=== PATIENT | female | born 1945 | race Caucasian/White ===

== ENCOUNTER 2021-04-21 09:13 | Emergency (ER) | payer OTHER ==
--- OUTSIDE RECORDS SUMMARY | 2021-04-21 09:18 | XMS REPORT | Continuity of Care Document ---
:1945 Author Organization [facility] t Address [address] [place] [address] Care Team Providers Name Role Phone Justino Primary Care Physician Marilou BENJAMIN Attending Clinician Unavailable Venkat ROSADO Attending Clinician Samir SMITH Attending Clinician Marilou Benjamin MD Attending Clinician SAMIR Attending Clinician Unavailable Doctor Unassigned, Name Attending Clinician Unavailable HERNANDEZ Attending Clinician Unavailable Miguel A JULIENR Attending Clinician Unavailable LILIAN HERRING Attending Clinician Unavailable MIGUEL A Attending Clinician Unavailable LITTLE Attending Clinician Unavailable Payers Payer Name Policy Type Policy Number Effective Date Expiration Date S [facility] MEDICARE PART A \T\ [id number] 2011 B 00:00:00 COMMERCIAL [id number] 2012 NON-CONTRACT 00:00:00 GENERIC Problems Condition Condition Condition Status Onset Resolution Last Treating Co mments Source Name Details Category Date Date Treatment Clinician Date Parkinson' Parkinson' Disease Active 2020-03 U nivers s disease s disease 2-15 ity of 00:00: [address] Repeated Repeated Disease Active 2020-03 Unive rs falls falls 2-15 ity of 00:00: [address] 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 00:00: [place] neoplasia neoplasia 00 [facility] III (RANJAN III (RANJAN Branch III) III) Morbid Morbid Disease Active Univers obesity obesity 7-30 [place] of with body with body [place] mass index mass index 00 Me dical of of Branch 40.0-49.9 40.0-49.9 Osteoporos Osteoporos Disease Active U fransiscaers is is 5-22 ity of 00:00: [place] [facility] Multiple Multiple Disease Active Unive rs thyroid thyroid 1-26 ity of nodules nodules 00:00: [place] [facility] Rheumatoid Rheumatoid Disease Active U nivers arthritis arthritis 9- ity of 00:00: [place] [facility] Asthma, Asthma, Disease Active Univers mild mild 11-11 ity of intermitte [place]mitte [place], nt, 00 Medical uncomplica uncomplica Br anch quique quique IBS IBS Disease Active Univers (irritable (irritable 5-20 it y of bowel bowel 00:00: [place] syndrome) syndrome) 00 [facility] Essential Essential Disease Active Uni vers hypertensi hypertensi 5-05 it y of on on 00:00: [place] [facility] Allergic Allergic Disease Active Overview: Un joes rhinitis rhinitis 2-02 Formattin ity of 00:00: g of this [place] note Medical might be Branch different from the original. 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 follows with Dr. Taylor Type 2 Type 2 Disease Active [facility] diabetes diabetes ity of mellitus mellitus [place] with with Medical complicati complicati Br anch on, with on, with long-term long-term current current use of use of insulin insulin Allergies, Adverse Reactions, Alerts Allergy Allergy Status Severity Reaction(s) Onset Inactive Treating Comm ents Source Name Type Date Date Clinician Etanerce Propensi Active Rash 2018-03 Rash at Unive rs pt ty to 0-22 injection ity of adverse 00:00: site [place] reaction 00 Medical s Branch ETANERCE DRUG Active Rash 2018-03 Univers PT INGREDI 0-22 ity of 00:00: [place] 00 Medical Branch Latex Propensi Active Other - See Skin Uni vers ty to comments 9 irritatio ity o f adverse 00:00: n [place] reaction 00 Medical s Branch Oswaldo Propensi Active Other - See Sinus Uni vers Essence ty to comments 11-22 headache ity o f adverse 00:00: [place] reaction 00 Medical s Branch LATEX DRUG Active Other-Cmnt Univer s INGREDI 9 ity of 00:00: [place] 00 Medical Branch OSWALDO DRUG Active Other-Cmnt Univer s ESSENCE 9 ity of 00:00: [place] 00 Medical Branch Bee Propensi Active Swelling 2015-03 Univer s Sting / ty to 2-16 ity of Venom adverse 00:00: [place] reaction 00 Medical s Branch BEE DRUG Active Swelling 2015-03 Univers STING / INGREDI 2-16 ity of VENOM 00:00: [place] 00 Medical Branch Triamter Propensi Active Rash Univer s mik-Hydr ty to 2- ity of ochlorot adverse 00:00: [place] hiazid reaction 00 Medical s Branch Metformi Propensi Active Nausea Univer s n ty to and/or 2 ity of adverse Vomiting 00:00: [place] reaction 00 Medical s Branch Nsaids Propensi Active Other - See History Un jose (Non-[place] ty to comments 2 of GI ity of roidal adverse 00:00: bleed [place] Anti-Inf reaction 00 Medica l lammator s Branch y Drug) TRIAMTER DRUG Active Rash Univers MIK-HYDR 2- ity of [place] 00:00: [place] HIAZID 00 Medical Branch METFORMI DRUG Active N/V Univers N INGREDI 2- ity of 00:00: [place] 00 Medical Branch NSAIDS Drug Active Other-Cmnt Univer s (NON-MAICO Class 2-02 ity of ROIDAL 00:00: [place] ANTI-INF 00 Medical LAMMATOR Branch Y DRUG) Cyclospo Propensi Active Hives Univer s rine ty to 4-15 ity of adverse 00:00: [place] reaction 00 Medical s Branch Cephalex Propensi Active Nausea Univer s in ty to and/or 4-15 ity of adverse Vomiting 00:00: [place] reaction 00 Medical s Branch Penicill Propensi Active Hives Univer s ins ty to 4-15 ity of adverse 00:00: [place] reaction 00 Medical s Branch CYCLOSPO DRUG Active Hives Univers RINE INGREDI 4-15 ity of 00:00: [place] 00 Medical Branch CEPHALEX DRUG Active N/V Univers IN INGREDI 4-15 ity of 00:00: [place] 00 Medical Branch PENICILL Drug Active Hives Univers INS Class 4-15 ity of 00:00: [place] 00 Medical Branch Social History Social Habit Start Date Stop Date Quantity Comments Source History SDMI University o f Alcohol Frequency [place] [facility] ed[facility] History SDOH University o f Alcohol Std [place] [facility] Drinks Branch History [facility] University o f Alcohol Binge [place] [facility] al Branch Exposure to Not sure University of SARS-CoV-2 [place] [facility] (event) Branch Alcohol intake 2021-02-22 2021-02-22 0 /d University of 00:00:00 00:00:00 [facility] Alcohol Comment 2016-02-25 2016-02-25 extremely rare Unive rsity of 00:00:00 00:00:00 may have some [place] Medic al wine Branch History of 1993-03-14 Cigarette Smoker Universi ty of tobacco use 00:00:00 [facility] Sex [birth year] [facility] l[facility] of 00:00:00 00:00:00 Medicine Smoking Status Start Date Stop Date Source Unknown if ever smoked [facility] llege of Medicine Former smoker 2020-09-04 00:00:00 2020-09-04 00:00:00 Universi ty of [facility] Medications Ordered Filled Start Stop Current Ordering Indication Dosage Frequency Signature Comments Components Source Medication Medication Date Date Medication? Clinician (SIG) Name Name MUKESH 2020-03 Yes [id number] Inject 30 U nivers 70/30 U-100 2-23 units with it y of INSULIN 100 00:00: breakfast [place] unit/mL 00 30 units Medical (70-30) with Lunch Branch suspension 25 units with dinner OZEMPIC 2020-03 Yes [id number] .5mg inject 0.5 Univers 0.25 mg or 2-23 mg under ity o f 0.5 mg(2 00:00: the skin [place] mg/1.5 mL) 00 weekly. Medica l PnIj Branch [facility] 2020-03 Yes [id number] Inject 30 U nivers 70/30 U-100 2-23 units with it y of INSULIN 100 00:00: breakfast [place] unit/mL 00 30 units Medical (70-30) with Lunch Branch suspension 25 units with dinner OZEMPIC 2020-03 Yes [id number] .5mg inject 0.5 Univers 0.25 mg or 2-23 mg under ity o f 0.5 mg(2 00:00: the skin [place] mg/1.5 mL) 00 weekly. Medica l PnIj Branch [facility] 2020-03 Yes [id number] Inject 30 U nivers 70/30 U-100 2-23 units with it y of INSULIN 100 00:00: breakfast [place] unit/mL 00 30 units Medical (70-30) with Lunch Branch suspension 25 units with dinner OZEMPIC 2020-03 Yes [id number] .5mg inject 0.5 Univers 0.25 mg or 2-23 mg under ity o f 0.5 mg(2 00:00: the skin [place] mg/1.5 mL) 00 weekly. Medica l PnIj Branch propranolol 2020-03 Yes [id number] 120mg Take 1 Univers [place] 120 mg 1-20 capsule by ity of 24 hr 00:00: mouth [place] capsule 00 daily. Medical Take 80mg Branch daily. propranolol 2020-03 Yes [id number] 120mg Take 1 Univers [place] 120 mg 1-20 capsule by ity of 24 hr 00:00: mouth [place] capsule 00 daily. Medical Take 80mg Branch daily. propranolol 2020-03 Yes [id number] 120mg Take 1 Univers [place] 120 mg 1-20 capsule by ity of 24 hr 00:00: mouth [place] capsule 00 daily. Medical Take 80mg Branch daily. propranolol 2020-03 Yes [id number] 120mg Take 1 Univers [place] 120 mg 1-20 capsule by ity of 24 hr 00:00: mouth [place] capsule 00 daily. Medical Take 80mg Branch daily. propranolol 2020-03 Yes [id number] 120mg Take 1 Univers [place] 120 mg 1-20 capsule by ity of 24 hr 00:00: mouth [place] capsule 00 daily. Medical Take 80mg Branch daily. propranolol 2020-03 Yes [id number] 120mg Take 1 Univers [place] 120 mg 1-20 capsule by ity of 24 hr 00:00: mouth [place] capsule 00 daily. Medical Take 80mg Branch daily. traMADOL 2020-03 Yes 50mg Take 50 mg Uni vers (ULTRAM) 50 1-18 by mouth ity of mg tablet 14:46: every 8 [place] 59 (eight) Medical hours as Branch needed for Pain. traMADOL 2020-03 Yes 50mg Take 50 mg Uni vers (ULTRAM) 50 1-18 by mouth ity of mg tablet 14:46: every 8 [place] (eight) Medical hours as Branch needed for Pain. traMADOL 2020-03 Yes 50mg Take 50 mg Uni vers (ULTRAM) 50 1-18 by mouth ity of mg tablet 14:46: every 8 [place] 59 (eight) Medical hours as Branch needed for Pain. traMADOL 2020-03 Yes 50mg Take 50 mg Uni vers (ULTRAM) 50 1-18 by mouth ity of mg tablet 14:46: every 8 [place] 59 (eight) Medical hours as Branch needed for Pain. traMADOL 2020-03 Yes 50mg Take 50 mg Uni vers (ULTRAM) 50 1-18 by mouth ity of mg tablet 14:46: every 8 [place] 59 (eight) Medical hours as Branch needed for Pain. traMADOL 2020-03 Yes 50mg Take 50 mg Uni vers (ULTRAM) 50 1-18 by mouth ity of mg tablet 14:46: every 8 [place] 59 (eight) Medical hours as Branch needed for Pain. Cholecalcif 2020-03 Yes 1{capsu Take 1 Cap Univers willian, 1-18 le} by mouth ity of Vitamin D3, 14:46: [place]. [place] (VITAMIN 56 Medical D3) 1,000 Branch unit Cap Cholecalcif 2020-03 Yes 1{capsu Take 1 Cap Univers willian, 1-18 le} by mouth ity of Vitamin D3, 14:46: daily. [place] (VITAMIN 56 Medical D3) 1,000 Branch unit Cap Cholecalcif 2020-03 Yes 1{capsu Take 1 Cap Univers willian, 1-18 le} by mouth ity of Vitamin D3, 14:46: daily. [place] (VITAMIN 56 Medical D3) 1,000 Branch unit Cap Cholecalcif 2020-03 Yes 1{capsu Take 1 Cap Univers willian, 1-18 le} by mouth ity of Vitamin D3, 14:46: daily. [place] (VITAMIN 56 Medical D3) 1,000 Branch unit Cap Cholecalcif 2020-03 Yes 1{capsu Take 1 Cap Univers iwllian, 1-18 le} by mouth ity of Vitamin D3, 14:46: daily. [place] (VITAMIN 56 Medical D3) 1,000 Branch unit Cap Cholecalcif 2020-03 Yes 1{capsu Take 1 Cap Univers willian, 1-18 le} by mouth ity of Vitamin D3, 14:46: daily. [place] (VITAMIN 56 Medical D3) 1,000 Branch unit Cap omega-3 2020-03 Yes 1g Take 1 g Univer s fatty 1-18 by mouth ity of acids-vitam 14:46: daily. [place] in E (FISH 55 Medical OIL) 1,000 Branch mg capsule omega-3 2020-03 Yes 1g Take 1 g Univer s fatty 1-18 by mouth ity of acids-vitam 14:46: daily. [place] in E (FISH 55 Medical OIL) 1,000 Branch mg capsule omega-3 2020-03 Yes 1g Take 1 g Univer s fatty 1-18 by mouth ity of acids-vitam 14:46: daily. [place] in E (FISH 55 Medical OIL) 1,000 Branch mg capsule omega-3 2020-03 Yes 1g Take 1 g Univer s fatty 1-18 by mouth ity of acids-vitam 14:46: daily. [place] in E (FISH 55 Medical OIL) 1,000 Branch mg capsule omega-3 2020-03 Yes 1g Take 1 g Univer s fatty 1-18 by mouth ity of acids-vitam 14:46: daily. [place] in E (FISH 55 Medical OIL) 1,000 Branch mg capsule omega-3 2020-03 Yes 1g Take 1 g Univer s fatty 1-18 by mouth ity of acids-vitam 14:46: daily. [place] in E (FISH 55 Medical OIL) 1,000 Branch mg capsule predniSONE 2020-03 Yes 5mg Take 5 mg Un jose (DELTASONE) 1-18 by mouth ity of 5 mg tablet 14:46: as needed. [address] predniSONE 2020-03 Yes 5mg Take 5 mg Un jose (DELTASONE) 1-18 by mouth ity of 5 mg tablet 14:46: as needed. [address] predniSONE 2020-03 Yes 5mg Take 5 mg Un jose (DELTASONE) 1-18 by mouth ity of 5 mg tablet 14:46: as needed. [address] predniSONE 2020-03 Yes 5mg Take 5 mg Un jose (DELTASONE) 1-18 by mouth ity of 5 mg tablet 14:46: as needed. [address] predniSONE 2020-03 Yes 5mg Take 5 mg Un jose (DELTASONE) 1-18 by mouth ity of 5 mg tablet 14:46: as needed. [address] predniSONE 2020-03 Yes 5mg Take 5 mg Un jose (DELTASONE) 1-18 by mouth ity of 5 mg tablet 14:46: as needed. [address] VITAMIN B 2020-03 Yes 1{tbl} Take 1 Univ ers COMPLEX 1-18 tablet by ity of ORAL 14:46: mouth [place] 50 daily. [facility] VITAMIN B 2020-03 Yes 1{tbl} Take 1 Univ ers COMPLEX 1-18 tablet by ity of ORAL 14:46: mouth [place] 50 daily. [facility] VITAMIN B 2020-03 Yes 1{tbl} Take 1 Univ ers COMPLEX 1-18 tablet by ity of ORAL 14:46: mouth [place] 50 daily. [facility] VITAMIN B 2020-03 Yes 1{tbl} Take 1 Univ ers COMPLEX 1-18 tablet by ity of ORAL 14:46: mouth [place] 50 daily. [facility] VITAMIN B 2020-03 Yes 1{tbl} Take 1 Univ ers COMPLEX 1-18 tablet by ity of ORAL 14:46: mouth [place] 50 daily. [facility] VITAMIN B 2020-03 Yes 1{tbl} Take 1 Univ ers COMPLEX 1-18 tablet by ity of ORAL 14:46: mouth [place] 50 daily. [facility] METHOTREXAT 2020-03 Yes 2.5mg Take 2.5 U nivers E SODIUM 1-18 mg by ity of ORAL 14:46: mouth [place] 48 weekly. [facility] Branch METHOTREXAT 2020-03 Yes 2.5mg Take 2.5 U nivers E SODIUM 1-18 mg by ity of ORAL 14:46: mouth [place] 48 weekly. [facility] Branch METHOTREXAT 2020-03 Yes 2.5mg Take 2.5 U nivers E SODIUM 1-18 mg by ity of ORAL 14:46: mouth [place] 48 weekly. [facility] Branch METHOTREXAT 2020-03 Yes 2.5mg Take 2.5 U nivers E SODIUM 1-18 mg by ity of ORAL 14:46: mouth [place] 48 weekly. [facility] METHOTREXAT 2020-03 Yes 2.5mg Take 2.5 U nivers E SODIUM 1-18 mg by ity of ORAL 14:46: mouth [place] 48 weekly. [facility] METHOTREXAT 2020-03 Yes 2.5mg Take 2.5 U nivers E SODIUM 1-18 mg by ity of ORAL 14:46: mouth [place] [facility] Take [facility] Unive rs ORAL 1-18 mouth. ity of 14:46: [address] 2020-03 Yes Take by Unive rs ORAL 1-18 mouth. ity of 14:46: [address] 2020-03 Yes Take by Unive rs ORAL 1-18 mouth. ity of 14:46: [address] 2020-03 Yes Take by Unive rs ORAL 1-18 mouth. ity of 14:46: [address] 2020-03 Yes Take by Unive rs ORAL 1-18 mouth. ity of 14:46: [address] 2020-03 Yes Take by Unive rs ORAL 1-18 mouth. ity of 14:46: [address] abatacept 2020-03 Yes inject Univer s (ORENCIA 1-18 under the ity of [place]) 14:46: skin. [address] abatacept 2020-03 Yes inject Univer s (ORENCIA 1-18 under the ity of [place]) 14:46: skin. [address] abatacept 2020-03 Yes inject Univer s (ORENCIA 1-18 under the ity of [place]) 14:46: skin. [address] abatacept 2020-03 Yes inject Univer s (ORENCIA 1-18 under the ity of [place]) 14:46: skin. [address] abatacept 2020-03 Yes inject Univer s (ORENCIA 1-18 under the ity of [place]) 14:46: skin. [address] abatacept 2020-03 Yes inject Univer s (ORENCIA 1-18 under the ity of [place]) 14:46: skin. [address] cloNIDine 2020-03 Yes [id number] Check BP Univers 0.1 mg 1-18 three ity of tablet 00:00: times a day, Medical morning, Branch noon, and night. If BP is more than 160/90 then take 1 clonidine. Max 3 a day. cloNIDine 2020-03 Yes [id number] Check BP Univers 0.1 mg 1-18 three ity of tablet 00:00: times a day, Medical morning, Branch noon, and night. If BP is more than 160/90 then take 1 clonidine. Max 3 a day. cloNIDine 2020-03 Yes [id number] Check BP Univers 0.1 mg 1-18 three ity of tablet 00:00: times a day, Medical morning, Branch noon, and night. If BP is more than 160/90 then take 1 clonidine. Max 3 a day. cloNIDine 2020-03 Yes [id number] Check BP Univers 0.1 mg 1-18 three ity of tablet 00:00: times a [place] day, Medical morning, Branch noon, and night. If BP is more than 160/90 then take 1 clonidine. Max 3 a day. cloNIDine 2020-03 Yes [id number] Check BP Univers 0.1 mg 1-18 three ity of tablet 00:00: times a [place] 00 day, Medical morning, Branch noon, and night. If BP is more than 160/90 then take 1 clonidine. Max 3 a day. cloNIDine 2020-03 Yes [id number] Check BP Univers 0.1 mg 1-18 three ity of tablet 00:00: times a [place] 00 day, Medical morning, Branch noon, and night. If BP is more than 160/90 then take 1 clonidine. Max 3 a day. carbidopa-l 2020-03 Yes Univer s evodopa 1-10 ity of 25-100 mg 00:00: [place] tablet 00 Medical Branch carbidopa-l 2020-03 Yes Univer s evodopa 1-10 ity of 25-100 mg 00:00: [place] tablet 00 Medical Branch carbidopa-l 2020-03 Yes Univer s evodopa 1-10 ity of 25-100 mg 00:00: [place] tablet 00 Medical Branch carbidopa-l 2020-03 Yes Univer s evodopa 1-10 ity of 25-100 mg 00:00: [place] tablet 00 Medical Branch carbidopa-l 2020-03 Yes Univer s evodopa 1-10 ity of 25-100 mg 00:00: [place] tablet 00 Medical Branch carbidopa-l 2020-03 Yes Univer s evodopa 1-10 ity of 25-100 mg 00:00: [place] tablet 00 Medical Branch semaglutide 2020- No [id number] .25mg inject Univers (OZEMPIC) 8- 12- 0.25-0.5 ity o f 0.25 mg or 00:00: 00:00 mg under [place] 0.5 mg(2 00 :00 the skin Medical mg/1.5 mL) weekly. Branch PnIj semaglutide 2020- No [id number] .25mg inject Univers (OZEMPIC) 10-19 12- 0.25-0.5 ity o f 0.25 mg or 00:00: 00:00 [place] 0.5 mg(2 00 :00 the skin Medical mg/1.5 mL) weekly. Branch PnIj rOPINIRole Yes [id number] 2mg Take 1 U nivers 2 mg tablet 5-17 tablet by ity of 00:00: mouth [place] 00 daily. Medical Branch lisinopriL Yes [id number] 40mg Take 1 U nivers 40 mg 5-17 tablet by ity of tablet 00:00: mouth [place] 00 daily. Medical Branch Magnesium Yes [id number] 2{tbl} Take 2 Univers Oxide 420 5-17 tablets by ity of mg Tab 00:00: mouth 2 [place] 00 (two) Medical times Branch daily. cetirizine 0 Yes [id number] 10mg Take 1 Univers 10 mg 5-17 tablet by ity of tablet 00:00: mouth [place] 00 daily. Medical Branch fluticasone Yes [id number] 2{spray Use 2 Univers propionate 5-17 } Sprays in ity of (FLONASE) 00:00: each [place] 50 00 nostril Medical mcg/actuati daily. Branch on nasal spray furosemide 0 Yes [id number] TAKE 1/2 Univers 20 mg 5-17 TABLET BY ity of tablet 00:00: MOUTH 3 [place] 00 TIMES Medical WEEKLY Branch rOPINIRole Yes [id number] 2mg Take 1 U nivers 2 mg tablet 5-17 tablet by ity of 00:00: mouth [place] 00 daily. Medical Branch lisinopriL Yes [id number] 40mg Take 1 U nivers 40 mg 5-17 tablet by ity of tablet 00:00: mouth [place] 00 daily. Medical Branch Magnesium 0 Yes [id number] 2{tbl} Take 2 Univers Oxide 420 5-17 tablets by ity of mg Tab 00:00: mouth 2 00 (two) Medical times Branch daily. cetirizine Yes [id number] 10mg Take 1 Univers 10 mg 5-17 tablet by ity of tablet 00:00: mouth [place] 00 daily. Medical Branch fluticasone Yes [id number] 2{spray Use 2 Univers propionate 5-17 } Sprays in ity of (FLONASE) 00:00: each [place] 50 00 nostril Medical mcg/actuati daily. Branch on nasal spray furosemide 0 Yes [id number] TAKE 1/2 Univers 20 mg 5-17 TABLET BY ity of tablet 00:00: MOUTH 3 [place] 00 TIMES Medical WEEKLY Branch rOPINIRole 2020-0 Yes [id number] 2mg Take 1 U nivers 2 mg tablet 5-17 tablet by ity of 00:00: mouth [place] 00 daily. Medical Branch lisinopriL Yes [id number] 40mg Take 1 U nivers 40 mg 5-17 tablet by ity of tablet 00:00: mouth [place] 00 daily. Medical Branch Magnesium 2021-0 Yes [id number] 2{tbl} Take 2 Univers Oxide 420 5-17 tablets by ity of mg Tab 00:00: mouth 2 [place] 00 (two) Medical times Branch daily. cetirizine Yes [id number] 10mg Take 1 Univers 10 mg 5-17 tablet by ity of tablet 00:00: mouth [place] 00 daily. Medical Branch fluticasone Yes [id number] 2{spray Use 2 Univers propionate 5-17 } Sprays in ity of (FLONASE) 00:00: each [place] 50 00 nostril Medical mcg/actuati daily. Branch on nasal spray furosemide Yes [id number] TAKE 1/2 Univers 20 mg 5-17 TABLET BY ity of tablet 00:00: MOUTH 3 [place] 00 TIMES Medical WEEKLY Branch rOPINIRole Yes [id number] 2mg Take 1 U nivers 2 mg tablet 5-17 tablet by ity of 00:00: mouth [place] 00 daily. Medical Branch lisinopriL Yes [id number] 40mg Take 1 U nivers 40 mg 5-17 tablet by ity of tablet 00:00: mouth [place] 00 daily. Medical Branch Magnesium Yes [id number] 2{tbl} Take 2 Univers Oxide 420 5-17 tablets by ity of mg Tab 00:00: mouth 2 [place] 00 (two) Medical times Branch daily. cetirizine Yes [id number] 10mg Take 1 Univers 10 mg 5-17 tablet by ity of tablet 00:00: mouth [place] 00 daily. Medical Branch fluticasone Yes [id number] 2{spray Use 2 Univers propionate 5-17 } Sprays in ity of (FLONASE) 00:00: each [place] 50 00 nostril Medical mcg/actuati daily. Branch on nasal spray furosemide Yes [id number] TAKE 1/2 Univers 20 mg 5-17 TABLET BY ity of tablet 00:00: MOUTH 3 [place] 00 TIMES Medical WEEKLY Branch rOPINIRole Yes [id number] 2mg Take 1 U nivers 2 mg tablet 5-17 tablet by ity of 00:00: mouth [place] 00 daily. Medical Branch lisinopriL Yes [id number] 40mg Take 1 U nivers 40 mg 5-17 tablet by ity of tablet 00:00: mouth [place] 00 daily. Medical Branch Magnesium Yes [id number] 2{tbl} Take 2 Univers Oxide 420 5-17 tablets by ity of mg Tab 00:00: mouth 2 [place] 00 (two) Medical times Branch daily. cetirizine Yes [id number] 10mg Take 1 Univers 10 mg 5-17 tablet by ity of tablet 00:00: mouth [place] 00 daily. Medical Branch fluticasone Yes [id number] 2{spray Use 2 Univers propionate 5-17 } Sprays in ity of (FLONASE) 00:00: each [place] 50 00 nostril Medical mcg/actuati daily. Branch on nasal spray furosemide Yes [id number] TAKE 1/2 Univers 20 mg 5-17 TABLET BY ity of tablet 00:00: MOUTH 3 [place] 00 TIMES Medical WEEKLY Branch rOPINIRole Yes [id number] 2mg Take 1 U nivers 2 mg tablet 5-17 tablet by ity of 00:00: mouth [place] 00 daily. Medical Branch lisinopriL Yes [id number] 40mg Take 1 U nivers 40 mg 5-17 tablet by ity of tablet 00:00: mouth [place] 00 daily. Medical Branch Magnesium Yes [id number] 2{tbl} Take 2 Univers Oxide 420 5-17 tablets by ity of mg Tab 00:00: mouth 2 [place] 00 (two) Medical times Branch daily. cetirizine Yes [id number] 10mg Take 1 Univers 10 mg 5-17 tablet by ity of tablet 00:00: mouth [place] 00 daily. Medical Branch fluticasone Yes [id number] 2{spray Use 2 Univers propionate 5-17 } Sprays in ity of (FLONASE) 00:00: each [place] 50 00 nostril Medical mcg/actuati daily. Branch on nasal spray furosemide Yes [id number] TAKE 1/2 Univers 20 mg 5-17 TABLET BY ity of tablet 00:00: MOUTH 3 [place] 00 TIMES Medical WEEKLY Branch FOLIC ACID Yes [id number] TAKE ONE Univers 1 mg tablet 5-06 TABLET BY ity of 00:00: MOUTH [place] 00 DAILY Medical Branch FOLIC ACID Yes [id number] TAKE ONE Univers 1 mg tablet 5-06 TABLET BY ity of 00:00: MOUTH DAILY Medical Branch FOLIC ACID 0 Yes [id number] TAKE ONE Univers 1 mg tablet 5-06 TABLET BY ity of 00:00: MOUTH DAILY Medical Branch FOLIC ACID 0 Yes [id number] TAKE ONE Univers 1 mg tablet 5-06 TABLET BY ity of 00:00: MOUTH DAILY Medical Branch FOLIC ACID 0 Yes [id number] TAKE ONE Univers 1 mg tablet 5-06 TABLET BY ity of 00:00: MOUTH DAILY Medical Branch FOLIC ACID 0 Yes [id number] TAKE ONE Univers 1 mg tablet 5-06 TABLET BY ity of 00:00: MOUTH DAILY Medical Branch insulin NPH 2020- No [id number] Inject Univers and regular 06-15 45-50 ity of human 70-30 00:00: 00:00 [place] (NOVOLIN 00 :00 before Medical 70/30 U-100 breakfast [facility] INSULIN) and inject 100 unit/mL 40-45 (70-30) units at injection dinner [id number] insulin NPH 2020- No [id number] Inject Univers and regular 06-15 45-50 ity of human 70-30 00:00: 00:00 [place] (NOVOLIN 00 :00 before Medical 70/30 U-100 breakfast [facility] INSULIN) and inject 100 unit/mL 40-45 (70-30) units at injection dinner DX:E11.40 montelukast Yes [id number] 10mg Take 1 Univers 10 mg 3-26 tablet by ity of tablet 00:00: mouth at [place] [address] bedtime. Medical Branch montelukast Yes [id number] 10mg Take 1 Univers 10 mg 3-26 tablet by ity of tablet 00:00: mouth at [place] [address] bedtime. Medical Branch montelukast Yes [id number] 10mg Take 1 Univers 10 mg 3-26 tablet by ity of tablet 00:00: mouth at [place] [address] bedtime. Medical Branch montelukast Yes [id number] 10mg Take 1 Univers 10 mg 3-26 tablet by ity of tablet 00:00: mouth at [place] [address] bedtime. Medical Branch montelukast 2020-0 Yes [id number] 10mg Take 1 Univers 10 mg 3-26 tablet by ity of tablet 00:00: mouth at [place] [address] bedtime. Medical Branch montelukast 2020-0 Yes [id number] 10mg Take 1 Univers 10 mg 3-26 tablet by ity of tablet 00:00: mouth at [place] [address] bedtime. Medical Branch FLUOXETINE 1-0 Yes [id number] 40mg TAKE 1 U nivers 40 mg 1-27 CAPSULE BY ity of capsule 00:00: MOUTH [place] 00 DAILY Medical Branch FLUOXETINE 2021-0 Yes [id number] 40mg TAKE 1 U nivers 40 mg 1-27 CAPSULE BY ity of capsule 00:00: MOUTH [place] DAILY Medical Branch FLUOXETINE 2021-0 Yes [id number] 40mg TAKE 1 U nivers 40 mg 1-27 CAPSULE BY ity of capsule 00:00: MOUTH [place] DAILY Medical Branch FLUOXETINE 2021-0 Yes [id number] 40mg TAKE 1 U nivers 40 mg 1-27 CAPSULE BY ity of capsule 00:00: MOUTH [place] 00 DAILY Medical Branch FLUOXETINE 2021-0 Yes [id number] 40mg TAKE 1 U nivers 40 mg 1-27 CAPSULE BY ity of capsule 00:00: MOUTH [place] 00 DAILY Medical Branch FLUOXETINE 2021-0 Yes [id number] 40mg TAKE 1 U nivers 40 mg 1-27 CAPSULE BY ity of capsule 00:00: MOUTH [place] 00 DAILY Medical Branch Diclofenac 2020-1 Yes [id number] Take 2-4 Univers Sodium 2-18 grams ity of (VOLTAREN) 00:00: three [place] 1 % gel 00 times a Medical day as Branch needed for pain Diclofenac 2020-1 Yes [id number] Take 2-4 Univers Sodium 2-18 grams ity of (VOLTAREN) 00:00: three [place] 1 % gel 00 times a Medical day as Branch needed for pain Diclofenac 2020-1 Yes [id number] Take 2-4 Univers Sodium 2-18 grams ity of (VOLTAREN) 00:00: three [place] 1 % gel 00 times a Medical day as Branch needed for pain Diclofenac 2020-1 Yes [id number] Take 2-4 Univers Sodium 2-18 grams ity of (VOLTAREN) 00:00: three [place] 1 % gel 00 times a Medical day as Branch needed for pain Diclofenac 2020- Yes [id number] Take 2-4 Univers Sodium 2-18 grams ity of (VOLTAREN) 00:00: three [place] 1 % gel 00 times a Medical day as Branch needed for pain Diclofenac 2019-03 Yes [id number] Take 2-4 Univers Sodium 2-18 grams ity of (VOLTAREN) 00:00: three [place] 1 % gel 00 times a Medical day as Branch needed for pain albuterol 2019-03 Yes [id number] 2{puff} Inhale 2 Univers (VENTOLIN 0-26 Puffs ity of HFA) 90 00:00: every 6 [place] mcg/actuati 00 (six) Medical on inhaler hours as Branc h needed for Wheezing, Shortness of Breath, Bronchospa sm or Chest tightness. albuterol 2019-03 Yes [id number] 2{puff} Inhale 2 Univers (VENTOLIN 0-26 Puffs ity of HFA) 90 00:00: every 6 [place] mcg/actuati 00 (six) Medical on inhaler hours as Branc h needed for Wheezing, Shortness of Breath, Bronchospa sm or Chest tightness. albuterol 2019-03 Yes [id number] 2{puff} Inhale 2 Univers (VENTOLIN 0-26 Puffs ity of HFA) 90 00:00: every 6 [place] mcg/actuati 00 (six) Medical on inhaler hours as Branc h needed for Wheezing, Shortness of Breath, Bronchospa sm or Chest tightness. albuterol 2019-03 Yes [id number] 2{puff} Inhale 2 Univers (VENTOLIN 0-26 Puffs ity of HFA) 90 00:00: every 6 [place] mcg/actuati 00 (six) Medical on inhaler hours as Branc h needed for Wheezing, Shortness of Breath, Bronchospa sm or Chest tightness. albuterol 2019-03 Yes [id number] 2{puff} Inhale 2 Univers (VENTOLIN 0-26 Puffs ity of HFA) 90 00:00: every 6 [place] mcg/actuati 00 (six) Medical on inhaler hours as Branc h needed for Wheezing, Shortness of Breath, Bronchospa sm or Chest tightness. albuterol 2019-03 Yes [id number] 2{puff} Inhale 2 Univers (VENTOLIN 0-26 Puffs ity of HFA) 90 00:00: every 6 [place] mcg/actuati 00 (six) Medical on inhaler hours as Branc h needed for Wheezing, Shortness of Breath, Bronchospa sm or Chest tightness. conjugated 2019-03 Yes [id number] 1g Insert 1 g [facility] estrogens 0-20 into ity of (PREMARIN) 00:00: vagina [place] 0.625 00 daily. [facility] mg/gram size on Branch vaginal the labia cream every night for 6 weeks then 3 times a week conjugated 2019-03 Yes [id number] 1g Insert 1 g [facility] estrogens 0-20 into ity of (PREMARIN) 00:00: vagina [place] 0.625 00 daily. [facility] mg/gram size on Branch vaginal the labia cream every night for 6 weeks then 3 times a week conjugated 2019-03 Yes [id number] 1g Insert 1 g [facility] estrogens 0-20 into ity of (PREMARIN) 00:00: vagina [place] 0.625 00 daily. [facility] mg/gram size on Branch vaginal the labia cream every night for 6 weeks then 3 times a week conjugated 2019-03 Yes [id number] 1g Insert 1 g [facility] estrogens 0-20 into ity of (PREMARIN) 00:00: vagina [place] 0.625 00 daily. [facility] mg/gram size on Branch vaginal the labia cream every night for 6 weeks then 3 times a week conjugated 2019-03 Yes [id number] 1g Insert 1 g [facility] estrogens 0-20 into ity of (PREMARIN) 00:00: vagina [place] 0.625 00 daily. [facility] mg/gram size on Branch vaginal the labia cream every night for 6 weeks then 3 times a week conjugated 2019-03 Yes [id number] 1g Insert 1 g [facility] estrogens 0-20 into ity of (PREMARIN) 00:00: vagina [place] 0.625 00 daily. [facility] mg/gram size on Branch vaginal the labia cream every night for 6 weeks then 3 times a week flash Yes 1{each} 1 Each [facility] glucose 9-25 every 14 ity of sensor 00:00: (fourteen) [place] (FREESTYLE 00 days. Medical SAI 14 DX:E11.40 Branch DAY SENSOR) Kit flash Yes 1{each} 1 Each [facility] glucose 9-25 every 14 ity of sensor 00:00: (fourteen) [place] (FREESTYLE 00 days. Medical SAI 14 DX:E11.40 Branch DAY SENSOR) Kit flash 2020-0 Yes 1{each} 1 Each [facility] glucose 9-25 every 14 ity of sensor 00:00: (fourteen) [place] (FREESTYLE 00 days. Medical SAI 14 DX:E11.40 Branch DAY SENSOR) Kit flash 2020-0 Yes 1{each} 1 Each [facility] glucose 9-25 every 14 ity of sensor 00:00: (fourteen) [place] (FREESTYLE 00 days. Medical SAI 14 DX:E11.40 Branch DAY SENSOR) Kit flash 2020-0 Yes 1{each} 1 Each [facility] glucose 9-25 every 14 ity of sensor 00:00: (fourteen) [place] (FREESTYLE 00 days. Medical SAI 14 DX:E11.40 Branch DAY SENSOR) Kit flash 2020-0 Yes 1{each} 1 Each [facility] glucose 9-25 every 14 ity of sensor 00:00: (fourteen) [place] (FREESTYLE 00 days. Medical SAI 14 DX:E11.40 Branch DAY SENSOR) Kit tiZANidine 2018-03 Yes [id number] 2mg Take 1 U nivers 2 mg tablet 0-22 tablet by ity of 00:00: mouth [place] 00 every 8 Medical (eight) Branch hours as needed (severe muscle cramps). tiZANidine 2018-03 Yes [id number] 2mg Take 1 U nivers 2 mg tablet 0-22 tablet by ity of 00:00: mouth [place] 00 every 8 Medical (eight) Branch hours as needed (severe muscle cramps). tiZANidine 2018-03 Yes [id number] 2mg Take 1 U nivers 2 mg tablet 0-22 tablet by ity of 00:00: mouth [place] 00 every 8 Medical (eight) Branch hours as needed (severe muscle cramps). tiZANidine 2018-03 Yes [id number] 2mg Take 1 U nivers 2 mg tablet 0-22 tablet by ity of 00:00: mouth [place] 00 every 8 Medical (eight) Branch hours as needed (severe muscle cramps). tiZANidine 2018-03 Yes [id number] 2mg Take 1 U nivers 2 mg tablet 0-22 tablet by ity of 00:00: mouth [place] 00 every 8 Medical (eight) Branch hours as needed (severe muscle cramps). tiZANidine 2018-03 Yes [id number] 2mg Take 1 U nivers 2 mg tablet 0-22 tablet by ity of 00:00: mouth [place] [address] every 8 Medical (eight) Branch hours as needed (severe muscle cramps). ACCU-CHEK 2019-0 Yes [id number] Use as Un jose FASTCLIX 6-11 directed ity of LANCET DRUM 00:00: TIDAC [facility] [place] [facility] E111.65 Medical Branch ACCU-CHEK 2019-0 Yes [id number] Use as Un jose FASTCLIX 6-11 directed ity of LANCET DRUM 00:00: TIDAC [facility] [place] [facility] E111.65 Medical Branch ACCU-CHEK 2019-0 Yes [id number] Use as Un jose FASTCLIX 6-11 directed ity of LANCET DRUM 00:[facility] E[facility] Branch ACCU-CHEK 2018-0 Yes [id number] Use as Un jose FASTCLIX 6-11 directed ity of LANCET DRUM 00:00[facility] E[facility] Branch ACCU-CHEK 2019-0 Yes [id number] Use as Un jose FASTCLIX 6-11 directed ity of LANCET DRUM 00:00[facility] E111.[facility] Branch ACCU-CHEK 2019-0 Yes [id number] Use as Un jose FASTCLIX 6-11 directed ity of LANCET DRUM 00:00[facility] E111.[facility] Medical Branch omeprazole 2018-1 Yes 40mg Take 40 mg U nivers 40 mg 0-10 by mouth ity of capsule 00:00: daily. [place] [facility] Branch omeprazole 2018- Yes 40mg Take 40 mg U nivers 40 mg 0-10 by mouth ity of capsule 00:00: daily. [place] [facility] Branch omeprazole 2018- Yes 40mg Take 40 mg U nivers 40 mg 0-10 by mouth ity of capsule 00:00: daily. [place] [facility] Branch omeprazole 2018- Yes 40mg Take 40 mg U nivers 40 mg 0-10 by mouth ity of capsule 00:00: daily. [place] [facility] Branch omeprazole 2018- Yes 40mg Take 40 mg U nivers 40 mg 0-10 by mouth ity of capsule 00:00: daily. Medical Branch omeprazole 2018-1 Yes 40mg Take 40 mg U nivers 40 mg 0-10 by mouth ity of capsule 00:00: daily. Medical Branch SYMBICORT 2018-0 Yes USE 2 Univers 160-4.5 8-03 INHALATION ity of mcg/actuati 00:00: S TW[place] inhaler DAY Medical NEEDED FOR Branch SHORTNESS OF BREATH, WHEEZING SYMBICORT 2017- Yes USE 2 [facility] 160-4.5 8-03 INHALATION ity of mcg/actuati 00:00: S TWICE [place] inhaler DAY Medical NEEDED FOR Branch SHORTNESS OF BREATH, WHEEZING SYMBICORT Yes USE 2 [facility] 160-4.5 8-03 INHALATION ity of mcg/actuati 00:00: S TWICE [place] inhaler DAY Medical NEEDED FOR Branch SHORTNESS OF BREATH, WHEEZING SYMBICORT Yes USE 2 [facility] 160-4.5 8-03 INHALATION ity of mcg/actuati 00:00: S TWICE [place] inhaler DAY Medical NEEDED FOR Branch SHORTNESS OF BREATH, WHEEZING SYMBICORT Yes USE 2 [facility] 160-4.5 8-03 INHALATION ity of mcg/actuati 00:00: S TWICE [place] inhaler Medical NEEDED FOR Branch SHORTNESS OF BREATH, WHEEZING SYMBICORT Yes USE 2 [facility] 160-4.5 8-03 INHALATION ity of mcg/actuati 00:00: S TWICE [place] inhaler DAY Medical NEEDED FOR Branch SHORTNESS OF BREATH, WHEEZING clopidogrel 2017- Yes [id number] 75mg Take 1 Univers (PLAVIX) 75 6-28 tablet by ity of mg tablet 00:00: mouth 00 daily. Medical Branch clopidogrel 2017- Yes [id number] 75mg Take 1 Univers (PLAVIX) 75 6-28 tablet by ity of mg tablet 00:00: mouth 00 daily. Medical Branch clopidogrel 2017-0 Yes [id number] 75mg Take 1 Univers (PLAVIX) 75 6-28 tablet by ity of mg tablet 00:00: mouth 00 daily. Medical Branch clopidogrel 2017- Yes [id number] 75mg Take 1 Univers (PLAVIX) 75 6-28 tablet by ity of mg tablet 00:00: mouth [place] 00 daily. [facility] clopidogrel Yes [id number] 75mg Take 1 Univers (PLAVIX) 75 6-28 tablet by ity of mg tablet 00:00: mouth [place] 00 daily. [facility] clopidogrel Yes [id number] 75mg Take 1 Univers (PLAVIX) 75 6-28 tablet by ity of mg tablet 00:00: mouth [place] 00 daily. [facility] Oral 2014-03 Yes Use as Univers Medication - directed, ity of Containers 00:00: DX:E11.65 [place] (SHARPSAFET 00 Medical Y Branch CONTAINER) [facility] Oral 2014-03 Yes Use as Univers Medication - directed, ity of Containers 00:00: DX:E11.65 [place] (SHARPSAFET 00 Medical Y Branch CONTAINER) [facility] Oral 2014-03 Yes Use as Univers Medication - directed, ity of Containers 00:00: DX:E11.65 [place] (SHARPSAFET 00 Medical Y Branch CONTAINER) [facility] Oral 2014-03 Yes Use as Univers Medication - directed, ity of Containers 00:00: DX:E11.65 [place] (SHARPSAFET 00 Medical Y Branch CONTAINER) [facility] Oral 2014-03 Yes Use as Univers Medication - directed, ity of Containers 00:00: DX:E11.65 [place] (SHARPSAFET 00 Medical Y Branch CONTAINER) [facility] Oral 2014-03 Yes Use as Univers Medication - directed, ity of Containers 00:00: DX:E11.65 [place] (SHARPSAFET 00 Medical Y Branch CONTAINER) [facility] lovastatin Yes [id number] 20mg Take 1 Tab Univers (MEVACOR) 9- by mouth ity of 20 mg 00:00: at [place] tablet 00 bedtime. [facility] lovastatin Yes [id number] 20mg Take 1 Tab Univers (MEVACOR) 9-02 by mouth ity of 20 mg 00:00: at [place] tablet 00 bedtime. [facility] lovastatin Yes [id number] 20mg Take 1 Tab Univers (MEVACOR) 9-02 by mouth ity of 20 mg 00:00: at [place] tablet 00 bedtime. [facility] lovastatin Yes [id number] 20mg Take 1 Tab Univers (MEVACOR) 9-02 by mouth ity of 20 mg 00:00: at [place] tablet 00 bedtime. Medical Branch lovastatin 2014-0 Yes [id number] 20mg Take 1 Tab Univers (MEVACOR) 9 by mouth ity of 20 mg 00:00: at [place] tablet 00 bedtime. Medical Branch lovastatin 2014-0 Yes [id number] 20mg Take 1 Tab Univers (MEVACOR) 11-11 by mouth ity of 20 mg 00:00: at [place] tablet 00 bedtime. Medical Branch Immunizations Ordered Filled Immunization Date Status Comments [facility] Immunization Name Name Influenza Virus 2021-01-27 Completed Universit y of Vaccine,quad 00:00:00 [place] [facility] Free Branch 65+ Influenza Virus 2021-01-27 Completed Universit y of Vaccine,quad 00:00:00 [place] [facility],preserve Free Branch 65+ Influenza Virus 2021-01-27 Completed Universit y of Vaccine,quad 00:00:00 [place] [facility] Im,preserve Free Branch 65+ Influenza Virus 2021-01-27 Completed Universit y of Vaccine,quad 00:00:00 [place] [facility] Im,preserve Free Branch 65+ Influenza Virus 2021-01-27 Completed Universit y of Vaccine,quad 00:00:00 [place] [facility] Im,preserve Free Branch 65+ Influenza Virus 2021-01-27 Completed Universit y of Vaccine,quad 00:00:00 [place] Medica [facility] Im,preserve Free Branch 65+ Td 2020-09-04 Completed University of 00:00:00 [facility] Td 2020-09-04 Completed University of 00:00:00 [facility] Td 2020-09-04 Completed University of 00:00:00 [facility] Td 2020-09-04 Completed University of 00:00:00 [facility] Td 2020-09-04 Completed University of 00:00:00 [facility] Td 2020-09-04 Completed University of 00:00:00 [facility] Influenza High Dose 2020-01-27 Completed Unive rsity of Quad 00:00:00 [facility] Influenza High Dose 2020-01-27 Completed Unive rsity of Quad 00:00:00 [facility] Influenza High Dose 2020-01-27 Completed Unive rsity of Quad 00:00:00 [facility] Influenza High Dose 2020-01-27 Completed Unive rsity of Quad 00:00:00 [facility] Influenza High Dose 2020-01-27 Completed Unive rsity of Quad 00:00:00 [facility] Influenza High Dose 2020-01-27 Completed Unive rsity of Quad 00:00:00 [facility] Influenza High Dose 2018-12-31 Completed Unive rsity of 00:00:00 [facility] Influenza High Dose 2018-12-31 Completed Unive rsity of 00:00:00 [facility] Influenza High Dose 2018-12-31 Completed Unive rsity of 00:00:00 [facility] Influenza High Dose 2018-12-31 Completed Unive rsity of 00:00:00 [facility] Influenza High Dose 2018-12-31 Completed Unive rsity of 00:00:00 [facility] Influenza High Dose 2018-12-31 Completed Unive rsity of 00:00:00 [facility] Zoster Vaccine 2018-02-07 Completed University of Recombinant 00:00:00 [facility] Zoster Vaccine 2018-02-07 Completed University of Recombinant 00:00:00 [facility] Zoster Vaccine 2018-02-07 Completed University of Recombinant 00:00:00 [facility] Zoster Vaccine 2018-02-07 Completed University of Recombinant 00:00:00 [facility] Zoster Vaccine 2018-02-07 Completed University of Recombinant 00:00:00 [facility] Zoster Vaccine 2018-02-07 Completed University of Recombinant 00:00:00 [facility] Influenza High Dose 2017-11-20 Completed Unive rsity of 00:00:00 [facility] Influenza High Dose 2017-11-20 Completed Unive rsity of 00:00:00 [facility] Influenza High Dose 2017-11-20 Completed Unive rsity of 00:00:00 [facility] Influenza High Dose 2017-11-20 Completed Unive rsity of 00:00:00 [facility] Influenza High Dose 2017-11-20 Completed Unive rsity of 00:00:00 [facility] Influenza High Dose 2017-11-20 Completed Unive rsity of 00:00:00 [facility] Zoster Vaccine 2017-11-15 Completed University of Recombinant 00:00:00 [facility] Zoster Vaccine 2017-11-15 Completed University of Recombinant 00:00:00 [facility] Zoster Vaccine 2017-11-15 Completed University of Recombinant 00:00:00 [facility] Zoster Vaccine 2017-11-15 Completed University of Recombinant 00:00:00 [facility] Zoster Vaccine 2017-11-15 Completed University of Recombinant 00:00:00 [facility] Zoster Vaccine 2017-11-15 Completed University of Recombinant 00:00:00 [facility] Pneumococcal 2017-03-14 Completed University o f Polysaccharide, 00:00:00 [place] Med ical PPSV23 (PNEUMOVAX) Branch Pneumococcal 2017-03-14 Completed University o f Polysaccharide, 00:00:00 [place] Med ical PPSV23 (PNEUMOVAX) Branch Pneumococcal 2017-03-14 Completed University o f Polysaccharide, 00:00:00 [place] Med ical PPSV23 (PNEUMOVAX) Branch Pneumococcal 2017-03-14 Completed University o f Polysaccharide, 00:00:00 [place] Med ical PPSV23 (PNEUMOVAX) Branch Pneumococcal 2017-03-14 Completed University o f Polysaccharide, 00:00:00 [place] Med ical PPSV23 (PNEUMOVAX) Branch Pneumococcal 2017-03-14 Completed University o f Polysaccharide, 00:00:00 [place] Med ical PPSV23 (PNEUMOVAX) Branch Influenza High Dose 2017-01-04 Completed Unive rsity of 00:00:00 [facility] Influenza High Dose 2017-01-04 Completed Unive rsity of 00:00:00 [facility] Influenza High Dose 2017-01-04 Completed Unive rsity of 00:00:00 [facility] Influenza High Dose 2017-01-04 Completed Unive rsity of 00:00:00 [facility] Influenza High Dose 2017-01-04 Completed Unive rsity of 00:00:00 [facility] Influenza High Dose 2017-01-04 Completed Unive rsity of 00:00:00 [facility] TDAP 2016-02-25 Completed University of 00:00:00 [facility] TDAP 2016-02-25 Completed University of 00:00:00 [facility] TDAP 2016-02-25 Completed University of 00:00:00 [facility] TDAP 2016-02-25 Completed University of 00:00:00 [facility] TDAP 2016-02-25 Completed University of 00:00:00 [facility] TDAP 2016-02-25 Completed University of 00:00:00 [facility] Influenza High Dose 2016-01-26 Completed Unive rsity of 00:00:00 [facility] Influenza High Dose 2016-01-26 Completed Unive rsity of 00:00:00 [facility] Influenza High Dose 2016-01-26 Completed Unive rsity of 00:00:00 [facility] Influenza High Dose 2016-01-26 Completed Unive rsity of 00:00:00 [facility] Influenza High Dose 2016-01-26 Completed Unive rsity of 00:00:00 [facility] Influenza High Dose 2016-01-26 Completed Unive rsity of 00:00:00 [facility] Pneumococcal 13 2015-09-03 Completed Universit y of Conjugate, PCV13 00:00:00 [facility] dical (Prevnar 13) Branch Pneumococcal 13 2015-09-03 Completed Universit y of Conjugate, PCV13 00:00:00 [facility] dical (Prevnar 13) Branch Pneumococcal 13 2015-09-03 Completed Universit y of Conjugate, PCV13 00:00:00 [facility] dical (Prevnar 13) Branch Pneumococcal 13 2015-09-03 Completed Universit y of Conjugate, PCV13 00:00:00 [facility] dical (Prevnar 13) Branch Pneumococcal 13 2015-09-03 Completed Universit y of Conjugate, PCV13 00:00:00 [facility] dical (Prevnar 13) Branch Pneumococcal 13 2015-09-03 Completed Universit y of Conjugate, PCV13 00:00:00 [facility] dical (Prevnar 13) Branch Zoster(Zostavax)( 2011-02-24 Completed Unive rsity of ingles) 00:00:00 [facility] Zoster(Zostavax)( 2011-02-24 Completed Unive rsity of ingles) 00:00:00 [facility] Zoster(Zostavax)( 2011-02-24 Completed Unive rsity of ingles) 00:00:00 [facility] Zoster(Zostavax)( 2011-02-24 Completed Unive rsity of ingles) 00:00:00 [facility] Zoster(Zostavax)( 2011-02-24 Completed Unive rsity of ingles) 00:00:00 [facility] Zoster(Zostavax)( 2011-02-24 Completed Unive rsity of ingles) 00:00:00 [facility] Hep B, Adol or Pedi 1997-07-10 Completed Unive rsity of Dosage 00:00:00 [facility] Branch Hep B, Adol or Pedi 1997-07-10 Completed Unive rsity of Dosage 00:00:00 [place] [facility] Hep B, Adol or Pedi 1997-07-10 Completed Unive rsity of Dosage 00:00:00 [place] [facility] Hep B, Adol or Pedi 1997-07-10 Completed Unive rsity of Dosage 00:00:00 [place] [facility] Hep B, Adol or Pedi 1997-07-10 Completed Unive rsity of Dosage 00:00:00 [place] [facility] Hep B, Adol or Pedi 1997-07-10 Completed Unive rsity of Dosage 00:00:00 [facility] Vital Signs Vital Name Observation Time Observation Value Comments Source Systolic blood 2021-02-22 19:09:00 130 mm[Hg] Univer sity [facility] pressure [facility] Diastolic blood 2021-02-22 19:09:00 70 [facility]Hg[facility] 2021-02-22 19:09:00 74 /min [facility] Body height 2021-02-22 19:09:00 160 cm [facility] Body weight 2021-02-22 19:09:00 94.348 kg [facility] BMI 2021-02-22 19:09:00 36.85 kg/m2 [facility] Oxygen saturation 2021-02-22 19:09:00 97 /min [facility] in Arterial blood Medical Br anch by Pulse oximetry Procedures Procedure Date / Time Performed Performing Clinician [facility] POCT HEMOGLOBIN A1C 2021-02-22 19:19:00 Romero Skelton [facility] DIABETES TESTING 2021-02-22 06:01:00 Doctor Unassigned, No Unive [facility] REPORTS Name Medical Branch Plan of Care Planned Activity Planned Date Details Comments Source Future Scheduled 2021-01-05 ME CANALITH Ordered: [facility] Roger ege Test 11:20:05 REPOSITIONING 01/05/2021 of Medicine PROCEDURE, PER DAY [code = 98134] Future Scheduled 2021-01-05 ME OCCUPATIONAL Ordered: [facility] C ollege Test 11:20:05 THERAPY EVAL MOD 01/05/2021 of Medicine COMPLEX 45 MINS [code = 92467] Future Scheduled 2021-01-05 Screening for [facility] Col lege Test 11:06:55 malignant neoplasm of of Med icine colon (procedure) [code = 049914640] Future Scheduled 2021-01-05 Screening for [facility] Col lege Test 11:06:55 malignant neoplasm of of Med icine breast (procedure) [code = 354269525] Future Scheduled 2021-01-05 Hepatitis C screening [employer] or College Test 11:06:55 (procedure) [code = of Medic ine [id number]] Future Scheduled 2021-01-05 ZOSTER VACCINE (1 of [place] [employer] College Test 11:06:55 2) [code = ZOSTER of Medicin e VACCINE (1 of 2)] Future Scheduled 2021-01-05 MEDICARE AWV [facility] Roger ege Test 11:06:55 (Initial) [code = of Medicin e MEDICARE AWV (Initial)] Future Scheduled 2021-01-05 FALL SCREEN [code = [employer] or [employer] Test 11:06:55 FALL SCREEN] of Medicine Future Scheduled 2021-01-05 Screening for Jordon Col lege Test 11:06:55 osteoporosis of Medicine (procedure) [code = 082379716] Future Scheduled 2021-01-05 FLU VACCINE > 6 [facility] C ollege Test 11:06:55 MONTHS [code = FLU of Medici ne VACCINE > 6 MONTHS] Future Scheduled 2021-01-05 TETANUS SHOT (ADULT) [facility] College Test 11:06:55 [code = TETANUS SHOT of Medi cine (ADULT)] Encounters Start End Encounter Admission Attending Care Care Encounter Source Date/Time Date/Time Type Type Clinicians Facility Department ID 2021-07-19 2021-07-19 Outpatient Brent BENJAMIN [facility] [id number] Univers 15:00:00 15:00:00 [id number] [facility] 2021-07-19 2021-07-19 [facility] [id number] Univers 15:00:00 15:00:00 [facility] 2021-04-19 2021-04-19 Outpatient Brent BENJAMIN [facility] [id number] [id number] Univers 16:20:00 16:20:00 [id number] [facility] 2021-04-19 2021-04-19 Outpatient R JUSTINO [facility] [id number] Univers 16:20:00 16:20:00 [facility] 2021-04-13 2021-04-13 [facility] [id number] Univers 00:00:00 00:00:00 [facility] [id number] it y of [place] 4.2.7.2.686 Angel as ATIF?BLEA [phone] [address] OFFICE [facility] 2021-04-05 2021-04-05 Telephone [facility] [id number] Univers 00:00:00 00:00:00 [facility] [id number] it y of [place] 4.2.7.2.686 Angel as ATIF?BLEA [phone] [address] OFFICE [facility] 2021-03-30 2021-03-30 Refill [facility] [id number] Univers 00:00:00 00:00:00 Elizabeth [facility] [id number] ity of [place]2.[place].2.[place] [phone] [address] 2021-02-22 2021-02-22 [facility] [id number] Univers 13:00:00 13:57:24 Visit Samir [facility] [id number] ity of [place] [id number] Angel as ATIF?BLEA [phone] [address] OFFICE [facility] 2021-02-22 2021-02-22 Outpatient R SAMIR [facility] [id number] Univers 13:00:00 13:57:24 [facility] 2021-02-22 2021-02-22 Orders Doctor KRUGER [id number] Univers 00:00:00 00:00:00 Only Unassigned, BEV [id number] ity of [facility] [id number] Angel as [phone] Medi jess [address] 2021-02-09 2021-02-09 Outpatient HERNANDEZ [facility] [id number] [place] 00:00:00 00:00:00 IRFAN [address] 2021-02-09 2021-02-09 Outpatient HERNANDEZ [facility] [id number] [place] 00:00:00 00:00:00 IRFAN [address] 2021-01-04 2021-01-04 Office SIMA Grady [id number] [facility] 11:00:05 13:00:33 Visit Aliya AMBULATOR 350.1.13.21 College Y [id number] of [id number] [facility] jonel 805 e 2021-01-04 2021-01-04 Outpatient SIM[place] [id number] [facility] 09:08:58 11:00:25 MAG Hu e of Medicin e 2020-12-14 2020-12-14 Outpatient MIGUEL A [facility] [id number] [facility] 00:00:00 00:00:00 ALIYA Hu e of Medicin e 2020-05-09 2020-05-09 Outpatient LITTLE [facility] [id number] 00:00:00 00:00:00 GROVER [address] 2020-04-18 2020-04-18 Outpatient [facility] [id number] [place] 00:00:00 00:00:[address] Results Test Description Test Time Test Comments Results Result Comments Source POCT HEMOGLOBIN A1C TEST 2021-02-22 19:20:00 Test Item Value Reference Range Interpretation Comme nts POCT HBA1C (test code = 4548-4) 8.4 % 4-6 A Lab Interpretation (test code = 33250-3) [facility] [id number] 19:20:00 Test Item Value Reference Range Interpretation Comments POCT HBA1C (test code = 4548-4) 8.4 % 4-6 A Lab Interpretation (test code = Abnormal 85661-1) [facility]
[2021-04-21 10:02] LABS: Absolute Lymphocytes (CBC) 2.1 K/uL (0.7-4.9); Hematocrit 38.2 % (36.0-45.0); Lymphocytes % 25.7 % (15.3-44.8); MPV 7.5 fL (7.6-11.3); RBC Red Blood Cell Count 4.69 M/uL (3.86-4.86)
--- NOTE | 2021-04-21 10:03 | RAD REPORT ---
EXAM DESCRIPTION: CT - Head Brain Wo Cont - 04/21/2021 9:56 am CLINICAL HISTORY: DIZZINESS Headache, drowsiness COMPARISON: No comparisons TECHNIQUE: All CT scans are performed using dose optimization technique as appropriate and may inclu de automated exposure control or mA/KV adjustment according to patient size. FINDINGS: No intracranial hemorrhage, hydrocephalus or extra-axial fluid collection.Mild generalized brain atrophy is present with mild periventricular and deep white matter chronic microvascular ische chidi changes.No areas of brain edema or evidence of midline shift. The paranasal sinuses and mastoids are clear. The calvarium is intact. IMPRESSION: No acute intracranial abnormality.
[2021-04-21 10:27] LABS: Albumin 2.9 g/dL (3.4-5.0); Bilirubin Direct 0.3 mg/dL (0-0.2); Bilirubin Total 1.3 mg/dL (0.2-1.0); Potassium 3.1 mmol/L (3.5-5.1); Protein, Total 6.3 g/dL (6.4-8.2); Troponin High Sensitivity 12.8 pg/mL (<58.9)
--- NOTE | 2021-04-21 11:16 | EDPHYS ---
Physician Documentation [facility] Name: Tammie Reaves Age: 76 yrs Sex: Female : 1945 Arrival Date: 04/21/2021 Time: 09:14 Bed 5 Private MD: ED Physician Stephanie Medina HPI: 04/21 09:53 This 76 yrs old Female presents to ER via Ambulatory with complaints of High Blood sp3 Pressure. 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 Patient stated that she had a mild headache and dizziness but no other symptoms. Patient denies chest pain, neck pain, fever, shortness of breath, change in urine output, hematuria grossly, nausea, vomiting, diarrhea, abdominal pain, syncope, focal neurological deficit, any other symptoms on ROS at this time. Symptoms of dizziness headache or almost fully resolved and blood pressure here in the emergency department is 147/74.. Historical: - Allergies: 09:29 Cephalexin Monohydrate; ll1 09:29 PENICILLINS; ll1 09:29 CYCLOSPORINE; ll1 - PMHx: 09:39 Hypertensive disorder; ss - Immunization history:: Adult Immunizations up to date. - Social history:: Smoking status: Patient denies any tobacco usage or history of. ROS: 09:54 Constitutional: Negative for fever, chills, and weight loss, Eyes: Negative for injury, sp3 pain, redness, and discharge, ENT: Negative for injury, pain, and discharge, Neck: Negative for injury, pain, and swelling, Cardiovascular: Negative for chest pain, palpitations, and edema, Respiratory: Negative for shortness of breath, cough, wheezing, and pleuritic chest pain, Abdomen/GI: Negative for abdominal pain, nausea, vomiting, diarrhea, and constipation, Back: Negative for injury and pain, MS/Extremity: Negative for injury and deformity, Skin: Negative for injury, rash, and discoloration, Allergy/Immunology: Negative for hives, rash, and allergies, Endocrine: Negative for neck swelling, polydipsia, polyuria, polyphagia, and marked weight changes, Hematologic/Lymphatic: Negative for swollen nodes, abnormal bleeding, and unusual bruising. 09:54 All other systems are negative. Exam: 09:54 Constitutional: This is a well developed, well nourished patient who is awake, alert, sp3 and in no acute distress. Head/Face: Normocephalic, atraumatic. Eyes: Pupils equal round and reactive to light, extra-ocular motions intact. Lids and lashes normal. Conjunctiva and sclera are non-icteric and not injected. Cornea within normal limits. Periorbital areas with no swelling, redness, or edema. ENT: Nares patent. No nasal discharge, no septal abnormalities noted. External auditory canals are clear. Oropharynx with no redness, swelling, or masses, exudates, or evidence of obstruction, uvula midline. Mucous membranes moist. Neck: Trachea midline, no thyromegaly or masses palpated, and no cervical lymphadenopathy. Supple, full range of motion without nuchal rigidity, or vertebral point tenderness. No Meningismus. Chest/axilla: Normal chest wall appearance and motion. Nontender with no deformity. No lesions are appreciated. Cardiovascular: Regular rate and rhythm with a normal S1 and S2. No gallops, murmurs, or rubs. Normal PMI, no JVD. No pulse deficits. Respiratory: Lungs have equal breath sounds bilaterally, clear to auscultation and percussion. No rales, rhonchi or wheezes noted. No increased work of breathing, no retractions or nasal flaring. Abdomen/GI: Soft, non-tender, with normal bowel sounds. No distension or tympany. No guarding or rebound. No evidence of tenderness throughout. Back: No spinal tenderness. No costovertebral tenderness. Full range of motion. Skin: Warm, dry with normal turgor. Normal color with no rashes, no lesions, and no evidence of cellulitis. MS/ Extremity: Pulses equal, no cyanosis. Neurovascular intact. Full, normal range of motion. Neuro: Awake and alert, GCS 15, oriented to person, place, time, and situation. Cranial nerves II-XII grossly intact. Motor strength 5/5 in all extremities. Sensory grossly intact. Cerebellar exam normal. Normal gait. 10:14 ECG was reviewed by the Attending Physician. She demonstrates normal sinus rhythm at 64 sp3 bpm with normal intervals, normal QRS, normal axis, nonspecific ST/T changes particularly in lead III which is likely artifact without evidence of ischemia. Vital Signs: 09:34 BP 147 / 74; Pulse 67; Resp 18; Temp 97.2(TE); Pulse Ox 98% ; Weight 95.71 kg; Height 5 ss ft. 3 in. (160.02 cm); Pain 0/10; 10:30 BP 131 / 76; ll1 11:28 BP 139 / 77; Pulse 64; Resp 17; Pulse Ox 98% on R/A; Pain 0/10; ll1 09:34 Body Mass Index 37.38 (95.71 kg, 160.02 cm) ss MDM: 09:26 Patient medically screened. sp3 09:54 Data reviewed: vital signs, nurses notes. ED course: 76-year-old female with sp3 hypertensive urgency now fairly resolved. Will assess for endorgan damage including CT scan of the head, troponin, and creatinine. If work-up is negative will discharge patient home with no further intervention at this time. Patient to follow-up with her production control clerk for continued outpatient work-up of her symptoms.. 11:14 ED course: Patient has mild hypokalemia which we will orally replenished. Otherwise no sp3 evidence of endorgan damage with a negative CT scan of the head, negative troponin, no change in baseline creatinine. Will discharge patient home at this time as her blood pressure continues to be in the normal range.. 04/21 09:37 Order name: Basic Metabolic Panel; Complete Time: 11:14 sp3 04/21 09:37 Order name: CBC with Diff; Complete Time: 11:14 sp3 04/21 09:37 Order name: LFT's; Complete Time: 11: sp3 04/21 09:37 Order name: Troponin HS; Complete Time: 11: sp3 04/21 09:37 Order name: CT Head Brain wo Cont; Complete Time: 11:14 sp3 04/21 09:37 Order name: EKG; Complete Time: :38 sp3 04/21 09:37 Order name: Cardiac monitoring; Complete Time: :40 sp3 04/21 09:37 Order name: EKG - Nurse/Tech; Complete Time: 09:40 sp3 04/21 09:37 Order name: IV Saline Lock; Complete Time: :40 sp3 04/21 09:37 Order name: Labs collected and sent; Complete Time: 09:40 sp3 Administered Medications: 11:25 Drug: Potassium Chloride 40 mEq Route: PO; ll1 11:28 Follow up: Response: No adverse reaction ll1 Disposition Summary: 04/21/21 11:16 Discharge Ordered Location: Home sp3 Condition: Stable sp3 Diagnosis - Hypertensive urgency sp3 Followup: sp3 - With: Private Physician - When: Upon discharge from the Emergency Department - Reason: Recheck today's complaints Discharge Instructions: - Discharge Summary Sheet sp3 - Hypertension, Adult sp3 Forms: - Medication Reconciliation Form sp3 - Thank You Letter sp3 - Antibiotic Education sp3 - Prescription Opioid Use sp3 Signatures: Dispatcher [employer] EDYamel Mckeon RN RN ss Lewis, Lynsay, RN RN ll1 Stephanie Medina MD MD sp3
--- NOTE | 2021-04-21 11:16 | ER ---
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 Pt reports her BP was 210/110. Denies dizziness. Coronavirus screen: Client denies travel out of the [place] in the last 14 days. Ebola Screen: Patient denies exposure to infectious person. Patient denies travel to an Ebola-affected area in the 21 days before illness onset. Initial Sepsis Screen: Does the patient meet any 2 criteria? No. Patient's initial sepsis screen is negative. Does the patient have a suspected source of infection? No. Patient's initial sepsis screen is negative. Risk Assessment: Do you want to hurt yourself or someone else? Patient reports no desire to harm self or others. Onset of symptoms is unknown. 09:34 Method Of Arrival: Ambulatory ss 09:34 Acuity: GIORGIO 3 ss Historical: - Allergies: 09:29 Cephalexin Monohydrate; ll1 09:29 PENICILLINS; ll1 09:29 CYCLOSPORINE; ll1 - PMHx: 09:39 Hypertensive disorder; ss - Immunization history:: Adult Immunizations up to date. - Social history:: Smoking status: Patient denies any tobacco usage or history of. Screenin:03 Abuse screen: Denies threats or abuse. Nutritional screening: No deficits noted. ll1 Tuberculosis screening: No symptoms or risk factors identified. Fall Risk IV access (20 points). Gait- Impaired (20 pts.). Total Cross Fall Scale indicates Low Risk Score (25-44 pts). Fall prevention measures have been instituted. Side Rails Up X 2 Placed close to Nursing Station Frequent Obs/Assesments occuring As available Patient and Family Educated on Fall Prevention Program and strategies. Assessment: 09:45 General: Appears in no apparent distress. Behavior is calm, cooperative, appropriate ll1 for age. Pain: Denies pain. Neuro: Level of Consciousness is awake, alert, obeys commands, Oriented to person, place, time, situation, Appropriate for age Miller Head Wet Process are equal bilaterally Moves all extremities. Full function Gait is steady, Speech is normal, Facial symmetry appears normal, Reports dizziness. 10:45 Reassessment: No changes from previously documented assessment. Patient and/or family ll1 updated on plan of care and expected duration. Pain level reassessed. Patient is alert, oriented x 3, equal unlabored respirations, skin warm/dry/pink. Vital Signs: 09:34 BP 147 / 74; Pulse 67; Resp 18; Temp 97.2(TE); Pulse Ox 98% ; Weight 95.71 kg; Height 5 ss ft. 3 in. (160.02 cm); Pain 0/10; 10:30 BP 131 / 76; ll1 11:28 BP 139 / 77; Pulse 64; Resp 17; Pulse Ox 98% on R/A; Pain 0/10; ll1 09:34 Body Mass Index 37.38 (95.71 kg, 160.02 cm) ED Course: 09:14 Patient arrived in ED. as 09:26 Stephanie Medina MD is Attending Physician. sp3 09:29 Duc Qureshi, SHAHRAM is Primary Nurse. ll1 09:29 Arm band placed on Patient placed in an exam room, on a stretcher. ll1 09:38 Triage completed. ss 09:45 Patient has correct armband on for positive identification. Bed in low position. Call ll1 light in reach. Side rails up X 1. Pulse ox on. NIBP on. 09:48 Inserted saline lock: 20 gauge in left forearm, using aseptic technique. ss7 09:55 Basic Metabolic Panel Sent. ss7 09:55 CBC with Diff Sent. ss7 09:55 LFT's Sent. ss7 09:55 Troponin HS Sent. ss7 09:56 CT Head Brain wo Cont In Process Unspecified. EDMS 11:28 No provider procedures requiring assistance completed. IV discontinued, intact, ll1 bleeding controlled, No redness/swelling at site. Pressure dressing applied. Administered Medications: 11:25 Drug: Potassium Chloride 40 mEq Route: PO; ll1 11:28 Follow up: Response: No adverse reaction ll1 Outcome: 11:16 Discharge ordered by . sp3 11:28 Discharged to home ambulatory. ll1 11:28 Condition: stable 11:28 Discharge instructions given to patient, Instructed on discharge instructions, follow up and referral plans. Demonstrated understanding of instructions, follow-up care. 11:29 Patient left the ED. ll1 Signatures: Dispatcher [employer] Cori Hubbard Shelby, RN RN ss Titus, SHAHRAM Xavier RN ll1 Stephanie Medina MD MD sp3 Crystal Hoffmann RN RN ss7 Corrections: (The following items were deleted from the chart) 09:59 09:58 BP 129 / 77; ll1 ll1
[2021-04-21] MEDS ORDERED: POTASSIUM CL SA 10 MEQ TAB PO ONE (11:21)
[2021-04-21 11:35] VITALS: TEMP 97.2; O2SAT 98
[2021-04-21 11:37] VITALS: BP 139/77
== END 2021-04-21 11:29 | disposition home or self-care (01) ==
LOC: ER 09:13
DX: I16.0 Hypertensive urgency (principal); I10 Essential (primary) hypertension; Z88.0 Allergy status to penicillin; Z88.1 Allergy status to other antibiotic agents; Z88.8 Allergy status to other drugs, medicaments and biological substances
CPT/HCPCS: 36415; 70450; 80048; 80076; 84484; 85025; 93005; 99284

== ENCOUNTER 2021-04-29 16:07 | Inpatient (IN) | payer OTHER ==
--- NOTE | 2021-04-29 18:07 | R.PREADM ---
PRE-ADMISSION SCREENING FORM SCREENING DATE AND TIME 04/29/2021 16:17 (RENTAL CLERK) ANTICIPATED REHAB ADMISSION DATE 05/01/2021 REFERRING FACILITY [facility] REFERRAL DATE AND TIME 04/29/2021 16:17 (RENTAL CLERK) REFERRAL ROOM# [id number] ACUTE ADMIT DATE 04/25/2021 Previous Rehabilitation(s): No. 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 CLINICAL LIAISON [place] PHYSICIAN REVIEWER Dr. Sam Stephens M.D. MR# [id number] NAME ALEXIA ALLEN ADDRESS [address] [facility] [id number] DATE OF 1945 AGE 76 SSN# [id number] GENDER female MARITAL STATUS Single (Never ) ADMIT FROM 02 - [facility] PRE-HOSPITAL LIVING SETTING 01 - Home (private home/apt. board/care, assisted living, jail, transitional living) HOME TYPE AND DETAILS Type of home: single family house # of levels in the residence: 1 # of steps within the residence: 0 # of steps to enter the residence: 0 PRE-HOSPITAL LIVING WITH Family/Relatives FAMILY SUPPORT Yes PRIMARY FAMILY CONTACT NAME DANIELLE BLUNT PRIMARY FAMILY CONTACT PHONE PRIMARY FAMILY CONTACT RELATIONSHIP DAUGHTER PHONE PRIMARY FAMILY CONTACT ON ADM.? no IS PRIMARY FAMILY CONTACT AUTH. REP.? no 1ST EMERGENCY CONTACT DANIELLE BLUNT 1ST CONTACT PHONE 1ST CONTACT RELATIONSHIP DAUGHTER PHONE 1ST CONTACT ON ADM. no IS 1ST CONTACT AUTH. REP.? no PHONE 2ND CONTACT ON ADM.? no PATIENT EMPLOYMENT STATUS Retired (for age) PATIENT EMPLOYER No Employer PAYOR INFORMATION: 1ST PAYOR NAME MEDICARE 1ST PAYOR PHONE 1ST PAYOR INJURY/ILLNESS DUE TO ACCIDENT? No ANOTHER [employer] RESPONSIBLE? No PRIMARY REHAB/ACUTE DIAGNOSIS: Closed Fracture of Transverse Process of [place] ONSET DATE 04/25/2021 REHAB IMPAIRMENT CATEGORY (JEOVANNY): 09 Orthopaedic (Ortho) does NOT meet 60% rule AFFECTED EXTREMITIES: PRIMARY DIAGNOSIS-RELATED SURGERIES: N/A INTERVENTIONS: - DIABETES Monitor blood glucose levels and administer medication as indicated by Physician - HYPERTENSION Blood pressure will be regularly assessed and medications administered as per physician recommendatio ns. - Asthma Monitoring of patient symptoms and administering medications as indicated by physician - C2 fx Monitoring patient's neurological symtoms Administering pain medication as indicated by physcian. - GERD Monitor symptoms and provide medication as indicated by physician RISK FOR COMPLICATIONS: - CVA pt's blood pressures have been inconsistent and require monitoring and medication management as inidi cated by physician. - SKIN BREAKDOWN Nursing will assess skin daily using assessment tool and will place on Skin Breakdown Precautions as Indicated per protocol - Falls Patient will be evaluated for Fall Precautions and will be placed on Fall Precautions as indicated pe r protocol. Educated pt on fall prevention strategies to reduce/eliminate fall risk pt is high risk for falls and has experienced falls at home. - DIABETIC COMPLICATIONS Regular monitoring and management of blood glucose levels. - Hypertension Blood pressure will be monitored regularly and medications administer per MD to manage effective bloo d pressure. - Pain Clinical staff will assess patient's pain level every shift per protocol to monitor for pain manageme nt effectiveness Educate patient on pain management strategies - Pneumonia pt will be instructed on use of and be encouraged to use incentive spirometry regular OOB activity and exercise to reduce risk Interval Chest X-Rays will be obtained as necessary pt will be trained on deep breathing exercises due to rib fractures - DVT PTT and INR will be monitored to effectively mitigate risk for development of DVT or PE while here. Medications will be administered as per MD SUMMARY OF ACUTE HOSPITALIZATION: Pt. is a 76 yo Right-handed female. On 04/25/2021 she was admitted to [facility] with diagnosis Closed Fracture of Transverse Process of [place]. Her impairment category is Orthopaedic Disorders 08 - Other Orthopaedic (08.9). Pre-morbidly, Pt. was independent/mod-I in Locomotion, Safety Awareness, Social Cognition, and Balanc e; and she had good Transfers Control, Sphincter Control, Self-Care, Communication, and Endurance. Currently, she has deficits of Locomotion, Safety Awareness, Social Cognition, Balance, Transfers Con trol, Sphincter Control, Self-Care, Communication, and Endurance. Pt. is now referred to [facility] for acute in-patient rehabilitation in order to maximize patient's functional independence in activities of daily living, strength, ROM, and mobi lity. Patient has realistic goal of being discharged at assistance level 7-Ind to reside at Home with Fami ly/Relatives. PAST MEDICAL HISTORY ANXIETY Parkinson's Disease BPPV ASTHMA BLOOD CLOT ASSOCIATED WITH VEIN WALL INFLAMMATION CATARACT CHRONIC PAIN DEPRESSION DM2 ESOPHAGEAL REFLUX H/O LUMPECTOMY H/O REPAIR OF ROTATOR CUFF STOMACH ULCER THYROID DISEASE HYPERTENSION HYPERLIPIDEMIA BOTTOM LOOSE TEETH PID RHEUMATOID ARTHRITIS VULVAR INTRAEPITHELIAL NEOPLASIA FALLS, PAST SURGICAL HISTORY: HYSTERECTOMY IBS OSTEOPOROSIS STATUS POST WRIST SURGERY BREAST BIOPSY BREST LUMPECTOMY DISCECTOMY ADENOIDECTOMY TONSILLECTOMY TOTAL KNEE ARTHROPLASTY PHACOEMULSIFICATION OF CATARACT MEDICATION ALLERGIES: No Known Drug Allergies (NKDA) ENVIRONMENTAL ALLERGIES: - Substance Allergies None Known - Other Allergies None Known CODE STATUS: Full code WEIGHT/HEIGHT/BMI: WEIGHT 212 HEIGHT 5'3 BMI 37.6 DIET: - Diet Type Regular - Diet - Solid Texture Regular - Diet - Liquid Texture Regular - Tube Feed N/A REVIEW OF SYSTEMS: - Gen Alert and awake Lying in bed No apparent distress Oriented to: person, time, and place - Vital Signs Temperature: 98.2 F SBP/DBP: 154/85 Pulse: 65 Resp: 16 Vital signs stable, afebrile - CVS RRR VITAL SIGNS Temperature: 98.2 F SBP/DBP: 154/85 Pulse: 65 Resp: 16 Vital signs stable, afebrile MEDICATIONS/TREATMENT: Other- See attached MAR (Medication Administration Record). CURRENT SPHINCTER CONTROL: Pre-hospital bladder status: unspecified # of bladder accidents in the last 7 days prior to screenin Pre-hospital bowel status: unspecified # of bowel accidents in the last 7 days prior to screenin Last Bowel Movement Date: 04/29/2021 CURRENT LOCOMOTION STATUS: distance walked 20 WITH ROLLING WALKER feet DETAILED CURRENT FUNCTIONAL STATUS: - Bladder accident frequency: 7-Ind - No accidents in the past 7 days - Bowel accident frequency: 7-Ind - No accidents in the past 7 days - Walking score based on distance walked: 0(N/A) score based on distance walked: 1(<=50ft) - Wheelchair score based on distance traveled: 0(N/A) QI SCORES: - Self-Care A. Eating 06-Independent B. Oral hygiene 03-Partial/moderate assistance C. Toileting hygiene 02-Substantial/maximal assistance E. Shower/bathe self 02-Substantial/maximal assistance F. Upper body dressing 03-Partial/moderate assistance G. Lower body dressing 02-Substantial/maximal assistance H. Putting on/taking off footwear 88-Not attempted due to medical condition or safety concerns - Mobility A. Roll left and right 03-Partial/moderate assistance B. Sit to lying 03-Partial/moderate assistance C. Lying to sitting on side of bed 03-Partial/moderate assistance D. Sit to stand 03-Partial/moderate assistance E. Chair/zeq-ff-dwnqs transfer 03-Partial/moderate assistance F. Toilet transfer 02-Substantial/maximal assistance G. Car transfer 88-Not attempted due to medical condition or safety concerns I. Walk 10 feet 03-Partial/moderate assistance J. Walk 50 feet with two turns 88-Not attempted due to medical condition or safety concerns K. Walk 150 feet 88-Not attempted due to medical condition or safety concerns L. Walking 10 feet on uneven surfaces 88-Not attempted due to medical condition or safety concerns M. 1 step (curb) 88-Not attempted due to medical condition or safety concerns N. 4 steps 88-Not attempted due to medical condition or safety concerns O. 12 steps 88-Not attempted due to medical condition or safety concerns P. Picking up object 88-Not attempted due to medical condition or safety concerns R. Wheel 50 feet with two turns 88-Not attempted due to medical condition or safety concerns S. Wheel 150 feet - Bladder and Bowel Bladder continence Bowel continence - Endurance Fair - Balance Fair - Safety Awareness Fair CURRENT FUNC. DEFICITS: Mobility, Endurance, Balance, Safety Awareness, and Self-Care CURRENT / PREVIOUS ASSISTIVE DEVICES: Rolling Walker HISTORY OF FALLS. HAS THE PATIENT HAD TWO OR MORE FALLS IN THE PAST YEAR OR ANY FALL WITH INJURY IN T HE PAST YEAR?: Yes PRIOR SURGERY. DID THE PATIENT HAVE MAJOR SURGERY DURING THE 100 DAYS PRIOR TO ADMISSION?: No THERAPY NOTES FROM ACUTE CARE: Attached. SPECIAL NEEDS: - Safety Concerns Skin breakdown precautions needed due to skin breakdown risk PRECAUTIONS: - Weight Bearing Precaution NO LIFTING GREATER THAN 5 LBS PATIENT NEEDS ACTIVE AND ONGOING THERAPEUTIC INTERVENTION OF MULTIPLE THERAPY DISCIPLINES, INCLUDING: - Orthotics/Prosthetics Orthotic Evaluation. Splinting/Casting. Evaluate and Treat. - Dietary and Nutrition Adequate Nutrition. Nutritional Education. Evaluate and Treat. Nutritional Supplements. - Occupational Therapy Cognitive Retraining. Safety Awareness. Visual Perceptual Training. Patient/Family Education. Evaluat e and Treat. Transfer Training. Household Tasks. Adaptive Equipment. - Speech Therapy Cognitive Training. Expressive Language Skills. Memory Strategies. Receptive Language Skills. Speech Intelligibility Training. Evaluate and Treat. - Physical Therapy Mobility Training. Safety Awareness. Gait Training. Transfer Training. Balance Training. Evaluate and Treat. Patient/Family Education. PATIENT NEEDS CLOSE MEDICAL SUPERVISION BY A REHABILITATION PHYSICIAN FOR: Coordination of Treatment Team Medical and Co-Morbidity Management DVT Management Diabetes Management PATIENT REQUIRES 24X7 REHAB NURSING FOR MEDICAL AND FUNCTIONAL MGT. OF THE FOLLOWING DEFICITS: Disease Management Medication Management Patient/Family Education Providing Safe Environment Skin Integrity Pain Management Bowel and Bladder Management PATIENT REQUIRES INTENSIVE, COORDINATED INTERDISCIPLINARY APPROACH TO REHAB: Arranging Home Equipment/Services Discharge Planning Family Intervention/Training Women'S Studies Lecturer/Case Management PATIENT REHAB POTENTIAL: Cici ALLEN is able and expected to receive 3 hours of individualized therapy daily on at least 5 of ethan 7 days Cici ALLEN'josephine prognosis for significant practical improvement within a reasonable period of time appear s Good Expected level of measurable improvement will be of a practical value to Cici ALLEN's functional capac ity or adaptations to impairments Has a viable Discharge Plan Medically appropriate; condition is sufficiently stable to participate in intensive rehab program DISCHARGE PLAN: - Estimated Length of Stay (days) 12. - Consensus on plan Discharge plan has been discussed with primary caregiver. Patient/Family is in agreement with the fatmata n. Primary caregiver is in agreement with the plan. - Patient/Family Goals Return home independently. - Planned Living Setting Upon Discharge Home, to live with Family/Relatives. Transitional Living. RECOMMENDED CARE LEVEL: IRF RECOMMENDATION DETAILS: Recommended Admission to Comprehensive Rehabilitation Program to Increase Functional [place] SCREENER'S COMPLETENESS CONFIRMATION: - Screening Confirmation The patient data collection on this preadmission screening form is finished PHYSICIANS REVIEW AND ADMISSION DETERMINATION Admit - Based on my review of the Pre-Admission Screening results, in my medical judgment and experie nce, I concur with the findings and recommend admission to [facility], as this patient requires an IRF level of care. 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 Sam Stephesn M.D. on 04/29/2021 at 18:06 (RENTAL CLERK )
--- OUTSIDE RECORDS SUMMARY | 2021-04-29 22:52 | XMS REPORT | Continuity of Care Document ---
:[address] [facility] t Address [address] [place] [address] Care Team Providers Name Role Phone Justino Primary Care Physician Marilou BADILLO Attending Clinician Unavailable TERESE Attending Clinician Unavailable Marilou Badillo MD Attending Clinician Venkat ROSADO Attending Clinician Samir SMITH Attending Clinician SAMIR Attending Clinician Unavailable Doctor Unassigned, Name Attending Clinician Unavailable HERNANDEZ Attending Clinician Unavailable Miguel A TRAORE Attending Clinician Unavailable LILIAN HERRING Attending Clinician Unavailable MIGUEL A Attending Clinician Unavailable LITTLE Attending Clinician Unavailable TERESE Dennisitting Clinician Unavailable Payers Payer Name Policy Type Policy Number Effective Date Expiration Date S [facility] [place] A \T\ [id number] 2011 B 00:00:00 COMMERCIAL [id number] 2012 NON-CONTRACT 00:00:00 GENERIC Problems Condition Condition Condition Status Onset Resolution Last Treating Co mments Source Name Details Category Date Date Treatment Clinician Date Parkinson' Parkinson' Disease Active 2020-03 U nivers s disease s disease 2-15 ity of 00:00: [address] Repeated Repeated Disease Active 2020-03 Unive rs falls falls 2-15 ity of 00:00: [address] 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 elial elial 00:00: [place] neoplasia neoplasia 00 [facility] III (RANJAN III (RANJAN Branch III) III) Morbid Morbid Disease Active Univers obesity obesity 7-30 [place] of with body [place] body [place] mass index mass index 00 Me dical of of Branch 40.0-49.9 40.0-49.9 Osteoporos Osteoporos Disease Active U nivers is is 5-22 ity of 00:00: [place] [facility] Multiple Multiple Disease Active Unive rs thyroid thyroid 1-26 ity of nodules nodules 00:00: [place] [facility] Rheumatoid Rheumatoid Disease Active U nivers arthritis arthritis - ity of 00:00: [place] [facility] Asthma, Asthma, Disease Active Univers mild mild 11-11 ity of intermitte [place]mitte 00[place], nt, 00 Medical uncomplica uncomplica Br anch quique quique IBS IBS Disease Active Univers (irritable (irritable 5-20 it y of bowel bowel 00:00: [place] syndrome) syndrome) 00 [facility] Branch Essential Essential Disease Active Uni vers hypertensi hypertensi 5-05 it y of on on 00:00: [place] [facility] Allergic Allergic Disease Active Overview: Un jose rhinitis rhinitis 2-02 Formattin ity of 00:00: g of this [place] note Medical might be Branch different from the original. ICD10 Diagnosis Term [employer] Utility Depressive Depressive Disease Active Overview : Univers disorder disorder 2-02 Formattin ity of 00:00: g of this [place] note Medical might be Branch different from the original. ICD10 Diagnosis Term [employer] Utility HLD HLD Disease Active Univers (hyperlipi (hyperlipi 4-15 it y of demia) demia) 00:00: [place] [facility] Metabolic Metabolic Disease Active Uni vers syndrome X syndrome X 4-15 it y of 00:00: [place] [facility] HTN HTN Disease Active Overview: Univer s (hypertens (hypertens Formattin ity of ion) ion) g of this [place] note Medical might be Branch different from the original. follows with Dr. Taylor Type 2 Type 2 Disease Active [facility] diabetes diabetes ity of mellitus [...] DRUG Active Rash 2018-03 Univers PT INGREDI 0 ity of 00:00: [place] 00 Medical Branch Latex Propensi Active Other - See Skin Uni vers ty to comments 11-22 irritatio ity o f adverse 00:00: n [place] reaction 00 Medical s Branch Oswaldo Propensi Active Other - See Sinus Uni vers Essence ty to comments 11-22 headache ity o f adverse 00:00: [place] reaction 00 Medical s Branch LATEX DRUG Active Other-Cmnt Univer s INGREDI 11-22 ity of 00:00: [place] 00 Medical Branch OSWALDO DRUG Active Other-Cmnt Univer s ESSENCE 11-22 ity of 00:00: [place] 00 Medical Branch [...] History Un jose (Non-[place] ty to comments 04-13 of GI ity of roidal adverse 00:00: bleed [place] Anti-Inf reaction 00 Medica l lammator s Branch y Drug) TRIAMTER DRUG Active Rash Univers MIK-HYDR 2- ity of [place] 00:00: [place] HIAZID 00 Medical Branch METFORMI DRUG Active N/V Univers N INGREDI 2 ity of 00:00: [place] 00 Medical Branch NSAIDS Drug Active Other-Cmnt 0 Univer s (NON-MAICO Class 2-02 ity of [...] Date Stop Date Quantity Comments Source History SDOH University o f Alcohol Frequency [place] [facility] ed[facility] History SDAR University o f Alcohol Std [place] [facility] Drinks Branch History [facility] University o f Alcohol Binge [place] [facility] al Branch Exposure to Not sure University of SARS-CoV-2 [place] [facility] (event) Branch Alcohol intake 2021-02-22 2021-02-22 0 /d University of 00:00:00 00:00:00 [facility] Alcohol Comment 2016-02-25 2016-02-25 extremely rare Unive rsity of 00:00:00 00:00:00 may have some [place] Medic al wine Branch History of 1993-03-14 Cigarette Smoker Universi ty of tobacco use 00:00:00 [facility] Sex [birth year] [facility] llege of 00:00:00 00:00:00 Medicine Smoking Status Start Date Stop Date Source Unknown if ever smoked [facility] llege of [facility] Former smoker 2020-09-04 00:00:00 2020-09-04 00:00:00 Universi ty of [facility] Medications Ordered Filled Start Stop Current Ordering Indication Dosage Frequency Signature Comments Components Source Medication Medication Date Date Medication? Clinician (SIG) Name Name abatacept Yes inject Univer s (ORENCIA 2-08 under the ity of [place]) 18:08: skin. [place] 56 Medical Branch TURMERIC Yes Take by Unive rs ORAL 2-08 mouth. ity of 18:08: [place] 51 Medical Branch METHOTREXAT Yes 2.5mg Take 2.5 U nivers E SODIUM 2-08 mg by ity of ORAL 18:08: mouth [place] 46 weekly. Medical Branch VITAMIN B Yes 1{tbl} Take 1 Univ ers COMPLEX 2-08 tablet by ity of ORAL 18:08: mouth [place] 44 daily. Medical Branch predniSONE Yes 5mg Take 5 mg Un jose (DELTASONE) 2-08 by mouth ity of 5 mg tablet 18:08: as needed. [place] 40 Medical Branch omega-3 Yes 1g Take 1 g Univer s fatty 2-08 by mouth ity of acids-vitam 18:08: daily. [place] in E (FISH 39 Medical OIL) 1,000 Branch mg capsule Cholecalcif Yes 1{capsu Take 1 Cap Univers willian, 2-08 le} by mouth ity of Vitamin D3, 18:08: [place]. [place] (VITAMIN 39 Medical D3) 1,000 Branch unit Cap traMADOL Yes 50mg Take 50 mg Uni vers (ULTRAM) 50 2-08 by mouth ity of mg tablet 18:08: every 8 [place] 38 (eight) Medical hours as Branch needed for Pain. FLUoxetine Yes [id number] 40mg Take 1 U nivers 40 mg 2-08 capsule by ity of capsule 00:00: mouth [place] 00 daily. Medical Branch montelukast Yes [id number] 10mg Take 1 Univers 10 mg 2-08 tablet by ity of tablet 00:00: mouth at [place] 00 bedtime. Medical Branch NOVOLIN 2020-03 Yes [id number] Inject 30 U nivers 70/30 U-100 2-23 units with it y of INSULIN 100 00:00: breakfast [place] unit/mL 00 30 units Medical (70-30) with Lunch Branch suspension 25 units with dinner OZEMPIC 2020-03 Yes [id number] .5mg inject 0.5 Univers 0.25 mg or 2-23 mg under ity o f 0.5 mg(2 00:00: the skin [place] mg/1.5 mL) 00 weekly. Medica l PnIj Branch NOVOLIN 2020-03 Yes [id number] Inject 30 U nivers 70/30 U-100 2-23 units with it y of INSULIN 100 00:00: breakfast [place] unit/mL 00 30 units Medical (70-30) with Lunch Branch suspension 25 units with dinner OZEMPIC 2020-03 Yes [id number] .5mg inject 0.5 Univers 0.25 mg or 2-23 mg under ity o f 0.5 mg(2 00:00: the skin [place] mg/1.5 mL) 00 weekly. Medica l PnIj Branch NOVOLIN 2020-03 Yes [id number] Inject 30 U nivers 70/30 U-100 2-23 units with it y of INSULIN 100 00:00: breakfast [place] unit/mL 00 30 units Medical (70-30) with Lunch Branch suspension 25 units with dinner OZEMPIC 2020-03 Yes [id number] .5mg inject 0.5 Univers 0.25 mg or 2-23 mg under ity o f 0.5 mg(2 00:00: the skin [place] mg/1.5 mL) 00 weekly. Medica l PnIj Branch NOVOLIN 2020-03 Yes [id number] Inject 30 U nivers 70/30 U-100 2-23 units with it y of INSULIN 100 00:00: breakfast [place] unit/mL 00 30 units Medical (70-30) with Lunch Branch suspension 25 units with dinner OZEMPIC 2020-03 Yes [id number] .5mg inject 0.5 Univers 0.25 mg or 2-23 mg under ity o f 0.5 mg(2 00:00: the skin [place] mg/1.5 mL) 00 weekly. Medica l PnIj Branch propranolol 2020-03 Yes [id number] 120mg Take 1 Univers [place] 120 mg 1-20 capsule by ity of 24 hr 00:00: mouth [place] capsule 00 daily. Medical Take 80mg Branch daily. propranolol 2020-03 Yes [id number] 120mg Take 1 Univers [place] 120 mg 1-20 capsule by ity of 24 hr 00:00: mouth [place] capsule 00 daily. Medical Take 80mg Branch daily. propranolol 2020-03 Yes [id number] 120mg Take 1 Univers [place] 120 mg 1-20 capsule by ity of 24 hr 00:00: mouth [place] capsule 00 daily. Medical Take 80mg Branch daily. propranolol 2020-03 Yes [id number] 120mg Take 1 Univers [place] 120 mg 1-20 capsule by ity of 24 hr 00:00: mouth [place] capsule 00 daily. Medical Take 80mg Branch daily. propranolol 2020-03 Yes [id number] 120mg Take 1 Univers [place] 120 mg 1-20 capsule by ity of 24 hr 00:00: mouth [place] capsule 00 daily. Medical Take 80mg Branch daily. propranolol 2020-03 Yes [id number] 120mg Take 1 Univers [place] 120 mg 1-20 capsule by ity of 24 hr 00:00: mouth [place] capsule 00 daily. Medical Take 80mg Branch daily. propranolol 2020-03 Yes [id number] 120mg Take 1 Univers [place] 120 mg [...] of 5 mg tablet 14:46: as needed. [address] predniSONE 2020-03 Yes 5mg Take 5 mg Un jose (DELTASONE) 1-18 by mouth ity of 5 mg tablet 14:46: as needed. [address] predniSONE 2020-03 Yes 5mg Take 5 mg Un jose (DELTASONE) 1-18 by mouth ity of 5 mg tablet 14:46: as needed. [address] predniSONE 2020-03 Yes 5mg Take 5 mg Un jose (DELTASONE) 1-18 by mouth ity of 5 mg tablet 14:46: as needed. [address] predniSONE 2020-03 Yes 5mg Take 5 mg Un jose (DELTASONE) 1-18 by mouth ity of 5 mg tablet 14:46: as needed. [address] predniSONE 2020-03 Yes 5mg Take 5 mg Un jose (DELTASONE) 1-18 by mouth ity of 5 mg tablet 14:46: as needed. [address] VITAMIN B 2020-03 Yes 1{tbl} Take 1 Univ ers COMPLEX 1-18 tablet by ity of ORAL 14:46: mouth [place] 50 daily. [facility] VITAMIN B 2020-03 Yes 1{tbl} Take 1 Univ ers COMPLEX 1-18 tablet by ity of ORAL 14:46: mouth [place] 50 daily. [facility] VITAMIN B 2020-03 Yes 1{tbl} Take 1 Univ ers COMPLEX 1-18 tablet by ity of ORAL 14:46: mouth [place] 50 daily. [facility] VITAMIN B 2020-03 Yes 1{tbl} Take 1 Univ ers COMPLEX 1-18 tablet by ity of ORAL 14:46: mouth [place] 50 daily. Medical Branch VITAMIN B 2020-03 Yes 1{tbl} Take 1 Univ ers COMPLEX 1-18 tablet by ity of ORAL 14:46: mouth [place] 50 daily. Medical Branch VITAMIN B 2020-03 Yes 1{tbl} Take 1 Univ ers COMPLEX 1-18 tablet by ity of ORAL 14:46: mouth [place] 50 daily. Medical Branch METHOTREXAT 2020-03 Yes 2.5mg Take 2.5 U nivers E SODIUM 1-18 mg by ity of ORAL 14:46: mouth [place] 48 weekly. Medical Branch METHOTREXAT 2020-03 Yes 2.5mg Take 2.5 U nivers E SODIUM 1-18 mg by ity of ORAL 14:46: mouth [place] 48 weekly. Medical Branch METHOTREXAT 2020-03 Yes 2.5mg Take 2.5 U nivers E SODIUM 1-18 mg by ity of ORAL 14:46: mouth [place] 48 weekly. Medical Branch METHOTREXAT 2020-03 Yes 2.5mg Take 2.5 U nivers E SODIUM 1-18 mg by ity of ORAL 14:46: mouth [place] 48 weekly. Medical Branch METHOTREXAT 2020-03 Yes 2.5mg Take 2.5 U nivers E SODIUM 1-18 mg by ity of ORAL 14:46: mouth [place] 48 weekly. Medical Branch METHOTREXAT 2020-03 Yes 2.5mg Take 2.5 U nivers E SODIUM 1-18 mg by ity of ORAL 14:46: mouth [place] 48 weekly. [facility] 2020-03 Yes Take by Unive rs ORAL 1-18 mouth. ity of 14:46: [place] 45 [facility] 2020-03 Yes Take by Unive rs ORAL 1-18 mouth. ity of 14:46: [place] 45 [facility] 2020-03 Yes Take by Unive rs ORAL 1-18 mouth. ity of 14:46: [place] 45 [facility] 2020-03 Yes Take by Unive rs ORAL 1-18 mouth. ity of 14:46: [place] 45 [facility] 2020-03 Yes Take by Unive rs ORAL 1-18 mouth. ity of 14:46: [place] 45 [facility] 2020-03 Yes Take by Unive rs ORAL 1-18 mouth. ity of 14:46: [address] abatacept 2020-03 Yes inject Univer s (ORENCIA 1-18 under the ity of [place]) 14:46: skin. [address] abatacept 2020-03 Yes inject Univer s (ORENCIA 1-18 under the [place]y of [place]) 14:46: skin. [address] abatacept 2020-03 Yes inject Univer s (ORENCIA 1-18 under the [place]y of [place]) 14:46: skin. [address] abatacept 2020-03 Yes inject Univer s (ORENCIA 1-18 under the ity of [place]) 14:46: skin. [address] abatacept 2020-03 Yes inject Univer s (ORENCIA 1-18 under the ity of [place]) 14:46: skin. [address] abatacept 2020-03 Yes inject Univer s (ORENCIA 1-18 under the ity of [place]) 14:46: skin. [address] cloNIDine 2020-03 Yes [id number] Check BP Univers 0.1 mg 1-18 three ity of tablet 00:00: times a [place] 00 day, Medical morning, Branch noon, and night. If BP is more than 160/90 then take 1 clonidine. Max 3 a day. cloNIDine 2020-03 Yes [id number] Check BP Univers 0.1 mg 1-18 three ity of tablet 00:00: times a [place] 00 day, Medical morning, Branch noon, and night. If BP is more than 160/90 then take 1 clonidine. Max 3 a day. cloNIDine 2020-03 Yes [id number] Check BP Univers 0.1 mg 1-18 three ity of tablet 00:00: times a [place] 00 day, Medical morning, Branch noon, and night. If BP is more than 160/90 then take 1 clonidine. Max 3 a day. cloNIDine 2020-03 Yes [id number] Check BP Univers 0.1 mg 1-18 three ity of tablet 00:00: times a [place] 00 day, Medical morning, Branch noon, and night. If BP is more than 160/90 then take 1 clonidine. Max 3 a day. cloNIDine 2020-03 Yes [id number] Check BP Univers 0.1 mg 1-18 three ity of tablet 00:00: times a [place] 00 day, Medical morning, Branch noon, and night. If BP is more than 160/90 then take 1 clonidine. Max 3 a day. cloNIDine 2020-03 Yes [id number] Check BP Univers 0.1 mg 1-18 three ity of tablet 00:00: times a [place] 00 day, Medical morning, Branch noon, and night. If BP is more than 160/90 then take 1 clonidine. Max 3 a day. cloNIDine 2020-03 Yes [id number] Check BP Univers 0.1 mg 1-18 three ity of tablet 00:00: times a [place] 00 day, Medical morning, Branch noon, and night. If BP is more than 160/90 then take 1 clonidine. Max 3 a day. carbidopa-l 2020-03 Yes Univer s evodopa 1-10 ity of 25-100 mg 00:00: [place] tablet 00 [facility] Branch carbidopa-l 2020-03 Yes Univer s evodopa 1-10 ity of 25-100 mg 00:00: [place] tablet 00 Medical Branch carbidopa-l 2020-03 Yes Univer s evodopa 1-10 ity of 25-100 mg 00:00: [place] tablet 00 [facility] Branch carbidopa-l 2020-03 Yes Univer s evodopa 1-10 ity of 25-100 mg 00:00: [place] tablet 00 [facility] Branch carbidopa-l 2020-03 Yes Univer s evodopa 1-10 ity of 25-100 mg 00:00: [place] tablet 00 [facility] Branch carbidopa-l 2020-03 Yes Univer s evodopa 1-10 ity of 25-100 mg 00:00: [place] tablet 00 [facility] Branch carbidopa-l 2020-03 Yes Univer s evodopa 1-10 ity of 25-100 mg 00:00: [place] tablet 00 [facility] Branch semaglutide 2020- No [id number] .25mg inject Univers (OZEMPIC) 8-12 21- 0.25-0.5 ity o f 0.25 mg or 00:00: 00:00 mg under [place] 0.5 mg(2 00 :00 the skin Medical mg/1.5 mL) weekly. Branch PnIj semaglutide 2020- No [id number] .25mg inject Univers (OZEMPIC) 8-10 12-23 0.25-0.5 ity o f 0.25 mg or 00:00: 00:00 mg under [place] 0.5 mg(2 00 :00 the skin Medical mg/1.5 mL) weekly. Branch PnIj rOPINIRole Yes [id number] 2mg Take 1 U nivers 2 mg tablet 5-17 tablet by ity of 00:00: mouth [place] 00 daily. Medical Branch lisinopriL Yes [id number] 40mg Take 1 U nivers 40 mg 5-17 tablet by ity of tablet 00:00: mouth [place] 00 daily. Medical Branch Magnesium Yes [id number] 2{tbl} Take 2 Univers Oxide 420 5-17 tablets by ity of mg Tab 00:00: mouth 2 [place] 00 (two) Medical times Branch daily. cetirizine Yes [id number] 10mg Take 1 Univers 10 mg 5-17 tablet by ity of tablet 00:00: mouth [place] 00 daily. Medical Branch fluticasone Yes [id number] 2{spray Use 2 Univers propionate 5-17 } Sprays in ity of (FLONASE) 00:00: each [place] 50 00 nostril Medical mcg/actuati daily. Branch on nasal spray furosemide Yes [id number] TAKE 1/2 Univers 20 mg 5-17 TABLET BY ity of tablet 00:00: MOUTH 3 [place] 00 TIMES Medical WEEKLY Branch rOPINIRole Yes [id number] 2mg Take 1 U nivers 2 mg tablet 5-17 tablet by ity of 00:00: mouth [place] 00 daily. Medical Branch lisinopriL Yes [id number] 40mg Take 1 U nivers 40 mg 5-17 tablet by ity of tablet 00:00: mouth [place] 00 daily. Medical Branch Magnesium Yes [id number] 2{tbl} Take 2 Univers Oxide 420 5-17 tablets by ity of mg Tab 00:00: mouth 2 [place] 00 (two) Medical times Branch daily. cetirizine Yes [id number] 10mg Take 1 Univers 10 mg 5-17 tablet by ity of tablet 00:00: mouth [place] 00 daily. Medical Branch fluticasone Yes [id number] 2{spray Use 2 Univers propionate 5-17 } Sprays in ity of (FLONASE) 00:00: each [place] 50 00 nostril Medical mcg/actuati daily. Branch on nasal spray furosemide Yes [id number] TAKE 1/2 Univers 20 mg 5-17 TABLET BY ity of tablet 00:00: MOUTH 3 00 TIMES Medical WEEKLY Branch rOPINIRole Yes [id number] 2mg Take 1 U nivers 2 mg tablet 5-17 tablet by ity of 00:00: mouth [place] 00 daily. Medical Branch lisinopriL Yes [id number] 40mg Take 1 U nivers 40 mg 5-17 tablet by ity of tablet 00:00: mouth [place] 00 daily. Medical Branch Magnesium Yes [id number] 2{tbl} Take 2 Univers Oxide 420 5-17 tablets by ity of mg Tab 00:00: mouth 2 (two) Medical times Branch daily. cetirizine Yes [id number] 10mg Take 1 Univers 10 mg 5-17 tablet by ity of tablet 00:00: mouth [place] 00 daily. Medical Branch fluticasone Yes [id number] 2{spray Use 2 Univers propionate 5-17 } Sprays in ity of (FLONASE) 00:00: each [place] 50 00 nostril Medical mcg/actuati daily. Branch on nasal spray furosemide Yes [id number] TAKE 1/2 Univers 20 mg 5-17 TABLET BY ity of tablet 00:00: MOUTH 3 00 TIMES Medical WEEKLY Branch rOPINIRole Yes [id number] 2mg Take 1 U nivers 2 mg tablet 5-17 tablet by ity of 00:00: mouth [place] 00 daily. Medical Branch lisinopriL Yes [id number] 40mg Take 1 U nivers 40 mg 5-17 tablet by ity of tablet 00:00: mouth [place] 00 daily. Medical Branch Magnesium Yes [id number] 2{tbl} Take 2 Univers Oxide 420 5-17 tablets by ity of mg Tab 00:00: mouth 2 00 (two) Medical times Branch daily. cetirizine Yes [id number] 10mg Take 1 Univers 10 mg 5-17 tablet by ity of tablet 00:00: mouth [place] 00 daily. Medical Branch fluticasone Yes [id number] 2{spray Use 2 Univers propionate 5-17 } Sprays in ity of (FLONASE) 00:00: each [place] 50 00 nostril Medical mcg/actuati daily. Branch on nasal spray furosemide Yes [id number] TAKE 1/2 Univers 20 mg 5-17 TABLET BY ity of tablet 00:00: MOUTH 3 [place] 00 TIMES Medical WEEKLY Branch rOPINIRole Yes [id number] 2mg Take 1 U nivers 2 mg tablet 5-17 tablet by ity of 00:00: mouth [place] 00 daily. Medical Branch lisinopriL Yes [id number] 40mg Take 1 U nivers 40 mg 5-17 tablet by ity of tablet 00:00: mouth [place] 00 daily. Medical Branch Magnesium Yes [id number] 2{tbl} Take 2 Univers Oxide 420 5-17 tablets by ity of mg Tab 00:00: mouth 2 [place] 00 (two) Medical times Branch daily. cetirizine Yes [id number] 10mg Take 1 Univers 10 mg 5-17 tablet by ity of tablet 00:00: mouth [place] 00 daily. Medical Branch fluticasone Yes [id number] 2{spray Use 2 Univers propionate 5-17 } Sprays in ity of (FLONASE) 00:00: each [place] 50 00 nostril Medical mcg/actuati daily. Branch on nasal spray furosemide Yes [id number] TAKE 1/2 Univers 20 mg 5-17 TABLET BY ity of tablet 00:00: MOUTH 3 [place] 00 TIMES Medical WEEKLY Branch rOPINIRole Yes [id number] 2mg Take 1 U nivers 2 mg tablet 5-17 tablet by ity of 00:00: mouth [place] 00 daily. Medical Branch lisinopriL Yes [id number] 40mg Take 1 U nivers 40 mg 5-17 tablet by ity of tablet 00:00: mouth [place] 00 daily. Medical Branch Magnesium Yes [id number] 2{tbl} Take 2 Univers Oxide 420 5-17 tablets by ity of mg Tab 00:00: mouth 2 [place] 00 (two) Medical times Branch daily. cetirizine 0 Yes [id number] 10mg Take 1 Univers 10 mg 5-17 tablet by ity of tablet 00:00: mouth [place] 00 daily. Medical Branch fluticasone Yes [id number] 2{spray Use 2 Univers propionate 5-17 } Sprays in ity of (FLONASE) 00:00: each [place] 50 00 nostril Medical mcg/actuati daily. Branch on nasal spray furosemide 0 Yes [id number] TAKE 1/2 Univers 20 mg 5-17 TABLET BY ity of tablet 00:00: MOUTH 3 [place] 00 TIMES Medical WEEKLY Branch rOPINIRole 0 Yes [id number] 2mg Take 1 U nivers 2 mg tablet 5-17 tablet by ity of 00:00: mouth [place] 00 daily. Medical Branch lisinopriL Yes [id number] 40mg Take 1 U nivers 40 mg 5-17 tablet by ity of tablet 00:00: mouth [place] 00 daily. Medical Branch Magnesium 0 Yes [id number] 2{tbl} Take 2 Univers Oxide 420 5-17 tablets by ity of mg Tab 00:00: mouth 2 [place] 00 (two) Medical times Branch daily. cetirizine Yes [id number] 10mg Take 1 Univers 10 mg 5-17 tablet by ity of tablet 00:00: mouth [place] 00 daily. Medical Branch fluticasone Yes [id number] 2{spray Use 2 Univers propionate 5-17 } Sprays in ity of (FLONASE) 00:00: each [place] 50 00 nostril Medical mcg/actuati daily. Branch on nasal spray furosemide 0 Yes [id number] TAKE 1/2 Univers 20 mg 5-17 TABLET BY ity of tablet 00:00: MOUTH 3 [place] 00 TIMES Medical WEEKLY Branch FOLIC ACID 2020-0 Yes [id number] TAKE ONE Univers 1 mg tablet 5-06 TABLET BY ity of 00:00: MOUTH [place] 00 DAILY Medical Branch FOLIC ACID 2020-0 Yes [id number] TAKE ONE Univers 1 mg tablet 5-06 TABLET BY ity of 00:00: MOUTH [place] 00 DAILY Medical Branch FOLIC ACID 2020-0 Yes [id number] TAKE ONE Univers 1 mg tablet 5-06 TABLET BY ity of 00:00: MOUTH DAILY Medical Branch FOLIC ACID 2020-0 Yes [id number] TAKE ONE Univers 1 mg tablet 5-06 TABLET BY ity of 00:00: MOUTH DAILY Medical Branch FOLIC ACID 2020-0 Yes [id number] TAKE ONE Univers 1 mg tablet 5-06 TABLET BY ity of 00:00: MOUTH DAILY Medical Branch FOLIC ACID 2020-0 Yes [id number] TAKE ONE Univers 1 mg tablet 5-06 TABLET BY ity of 00:00: MOUTH DAILY Medical Branch FOLIC ACID 2020-0 Yes [id number] TAKE ONE Univers 1 mg tablet 5-06 TABLET BY ity of 00:00: MOUTH DAILY Medical Branch insulin NPH 2020- No [id number] Inject Univers and regular 06-15 45-50 ity of human 70-30 00:00: [place] (NOVOLIN 00 :00 before Medical 70/30 U-100 breakfast [facility] INSULIN) and inject 100 unit/mL 40-45 (70-30) units at injection dinner [id number] insulin NPH 2020- No [id number] Inject Univers and regular 06-15 45-50 ity of human 70-30 00:00: 00:[place] (NOVOLIN 00 :00 before Medical 70/30 U-100 breakfast [facility] INSULIN) and inject 100 unit/mL 40-45 (70-30) units at injection dinner [id number] montelukast Yes [id number] 10mg Take 1 Univers 10 mg 3-26 tablet by ity of tablet 00:00: mouth at [place] [address] bedtime. Medical Branch montelukast Yes [id number] 10mg Take 1 Univers 10 mg 3-26 tablet by ity of tablet 00:00: mouth at [place] [address] bedtime. Medical Branch montelukast Yes [id number] 10mg Take 1 Univers 10 mg 3-26 tablet by ity of tablet 00:00: mouth at [place] [address] bedtime. Medical Branch montelukast Yes [id number] 10mg Take 1 Univers 10 mg 3-26 tablet by ity of tablet 00:00: mouth at [place] [address] bedtime. Medical Branch montelukast 2021-0 Yes [id number] 10mg Take 1 Univers 10 mg 3-26 tablet by ity of tablet 00:00: mouth at [place] [address] bedtime. Medical Branch montelukast 2020-0 Yes [id number] 10mg Take 1 Univers 10 mg 3-26 tablet by ity of tablet 00:00: mouth at [place] [address] bedtime. Medical Branch FLUOXETINE 2020-0 Yes [id number] 40mg TAKE 1 U nivers 40 mg 1-27 CAPSULE BY ity of capsule 00:00: MOUTH [place] DAILY Medical Branch FLUOXETINE 2020-0 Yes [id number] 40mg TAKE 1 U nivers 40 mg 1-27 CAPSULE BY ity of capsule 00:00: MOUTH [place] DAILY Medical Branch FLUOXETINE 2020-0 Yes [id number] 40mg TAKE 1 U nivers 40 mg 1-27 CAPSULE BY ity of capsule 00:00: MOUTH [place] DAILY Medical Branch FLUOXETINE 2020-0 Yes [id number] 40mg TAKE 1 U nivers 40 mg 1-27 CAPSULE BY ity of capsule 00:00: MOUTH [place] DAILY Medical Branch FLUOXETINE 2020-0 Yes [id number] 40mg TAKE 1 U nivers 40 mg 1-27 CAPSULE BY ity of capsule 00:00: MOUTH [place] 00 DAILY Medical Branch FLUOXETINE 1-0 Yes [id number] 40mg TAKE 1 U nivers 40 mg 1-27 CAPSULE BY ity of capsule 00:00: MOUTH [place] 00 DAILY Medical Branch Diclofenac 2020-1 Yes [id number] Take 2-4 Univers Sodium 2-18 grams ity of (VOLTAREN) 00:00: three [place] 1 % gel 00 times a Medical day as Branch needed for pain Diclofenac 2020-1 Yes [id number] Take 2-4 Univers Sodium 2-18 grams ity of (VOLTAREN) 00:00: three [place] 1 % gel 00 times a Medical day as Branch needed for pain Diclofenac 2020-1 Yes [id number] Take 2-4 Univers Sodium 2-18 grams ity of (VOLTAREN) 00:00: three [place] 1 % gel 00 times a Medical day as Branch needed for pain Diclofenac 2020-1 Yes [id number] Take 2-4 Univers Sodium 2-18 grams ity of (VOLTAREN) 00:00: three [place] 1 % gel 00 times a Medical day as Branch needed for pain Diclofenac 2020-1 Yes [id number] Take 2-4 Univers Sodium 2-18 grams ity of (VOLTAREN) 00:00: three [place] 1 % gel 00 times a Medical day as Branch needed for pain Diclofenac 2019-03 Yes [id number] Take 2-4 Univers Sodium 2-18 grams ity of (VOLTAREN) 00:00: three [place] 1 % gel 00 times a Medical day as Branch needed for pain Diclofenac 2019-03 Yes [id number] Take 2-4 Univers Sodium 2-18 grams ity of (VOLTAREN) 00:00: three [place] 1 % gel 00 times a Medical day as Branch needed for pain albuterol 2019-03 Yes [id number] 2{puff} Inhale 2 Univers (VENTOLIN 0-26 Puffs ity of HFA) 90 00:00: every 6 [place] mcg/actuati 00 (six) Medical on inhaler hours as Branc h needed for Wheezing, Shortness of Breath, Bronchospa sm or Chest tightness. albuterol 2019-03 Yes [id number] 2{puff} Inhale 2 Univers (VENTOLIN 0-26 Puffs ity of HFA) 90 00:00: every 6 [place] mcg/actuati 00 (six) Medical on inhaler hours as Branc h needed for Wheezing, Shortness of Breath, Bronchospa sm or Chest tightness. albuterol 2019-03 Yes [id number] 2{puff} Inhale 2 Univers (VENTOLIN 0-26 Puffs ity of HFA) 90 00:00: every 6 [place] mcg/actuati 00 (six) Medical on inhaler hours as Branc h needed for Wheezing, Shortness of Breath, Bronchospa sm or Chest tightness. albuterol 2019-03 Yes [id number] 2{puff} Inhale 2 Univers (VENTOLIN 0-26 Puffs ity of HFA) 90 00:00: every 6 [place] mcg/actuati 00 (six) Medical on inhaler hours as Branc h needed for Wheezing, Shortness of Breath, Bronchospa sm or Chest tightness. albuterol 2019-03 Yes [id number] 2{puff} Inhale 2 Univers (VENTOLIN 0-26 Puffs ity of HFA) 90 00:00: every 6 [place] mcg/actuati 00 (six) Medical on inhaler hours as Branc h needed for Wheezing, Shortness of Breath, Bronchospa sm or Chest tightness. albuterol 2019-03 Yes [id number] 2{puff} Inhale 2 Univers (VENTOLIN 0-26 Puffs ity of HFA) 90 00:00: every 6 [place] mcg/actuati 00 (six) Medical on inhaler hours as Branc h needed for Wheezing, Shortness of Breath, Bronchospa sm or Chest tightness. albuterol 2019-03 Yes [id number] 2{puff} Inhale 2 Univers (VENTOLIN 0-26 Puffs ity of HFA) 90 00:00: every 6 [place] mcg/actuati 00 (six) Medical on inhaler hours as Branc h needed for Wheezing, Shortness of Breath, Bronchospa sm or Chest tightness. conjugated 2019-03 Yes [id number] 1g Insert 1 g Univers estrogens 0-20 into ity of (PREMARIN) 00:00: vagina [place] 0.625 00 daily. [facility] mg/gram size on Branch vaginal the labia cream every night for 6 weeks then 3 times a week conjugated 2019-03 Yes [id number] 1g Insert 1 g Univers estrogens 0-20 into ity of (PREMARIN) 00:00: vagina [place] 0.625 00 daily. [facility] mg/gram size on Branch vaginal the labia cream every night for 6 weeks then 3 times a week conjugated 2019-03 Yes [id number] 1g Insert 1 g Univers estrogens 0-20 into ity of (PREMARIN) 00:00: vagina [place] 0.625 00 daily. [facility] mg/gram size on Branch vaginal the labia cream every night for 6 weeks then 3 times a week conjugated 2019-03 Yes [id number] 1g Insert 1 g [facility] estrogens 0-20 into ity of (PREMARIN) 00:00: vagina [place] 0.625 00 daily. [facility] mg/gram size on Branch vaginal the labia cream every night for 6 weeks then 3 times a week conjugated 2019-03 Yes [id number] 1g Insert 1 g Univers estrogens 0-20 into ity of (PREMARIN) 00:00: vagina [place] 0.625 00 daily. [facility] mg/gram size on Branch vaginal the labia cream every night for 6 weeks then 3 times a week conjugated 2019-03 Yes [id number] 1g Insert 1 g [facility] estrogens 0-20 into ity of (PREMARIN) 00:00: vagina [place] 0.625 00 daily. [facility] mg/gram size on Branch vaginal the labia cream every night for 6 weeks then 3 times a week conjugated 2020-1 Yes [id number] 1g Insert 1 g [facility] estrogens 0-20 into ity of (PREMARIN) 00:00: vagina [place] 0.625 00 daily. [facility] mg/gram size on Branch vaginal the labia cream every night for 6 weeks then 3 times a week flash 2020-0 Yes 1{each} 1 Each Univers glucose 9-25 every 14 ity of sensor 00:00: (fourteen) [place] (FREESTYLE 00 days. Medical SAI 14 DX:E11.40 Branch DAY SENSOR) Kit flash 2020-0 Yes 1{each} 1 Each Univers glucose 9-25 every 14 ity of sensor 00:00: (fourteen) [place] (FREESTYLE 00 days. Medical ASI 14 DX:E11.40 Branch DAY SENSOR) Kit flash 2020-0 Yes 1{each} 1 Each Univers glucose 9-25 every 14 ity of sensor 00:00: (fourteen) [place] (FREESTYLE 00 days. Medical SAI 14 DX:E11.40 Branch DAY SENSOR) Kit flash 2020-0 Yes 1{each} 1 Each Univers glucose 9-25 every 14 ity of sensor 00:00: (fourteen) [place] (FREESTYLE 00 days. Medical SAI 14 DX:E11.40 Branch DAY SENSOR) Kit flash 2020-0 Yes 1{each} 1 Each Univers glucose 9-25 every 14 ity of sensor 00:00: (fourteen) [place] (FREESTYLE 00 days. Medical SAI 14 DX:E11.40 Branch DAY SENSOR) Kit flash 2020-0 Yes 1{each} 1 Each Univers glucose 9-25 every 14 ity of sensor 00:00: (fourteen) [place] (FREESTYLE 00 days. Medical SAI 14 DX:E11.40 Branch DAY SENSOR) Kit flash 2020-0 Yes 1{each} 1 Each Univers glucose 9-25 every 14 ity of sensor 00:00: (fourteen) [place] (FREESTYLE 00 days. Medical SAI 14 DX:E11.40 Branch DAY SENSOR) Kit tiZANidine 2018-03 Yes [id number] 2mg Take 1 U nivers 2 mg tablet 0-22 tablet by ity of 00:00: mouth [place] 00 every 8 Medical (eight) Branch hours as needed (severe muscle cramps). tiZANidine 2019-1 Yes [id number] 2mg Take 1 U nivers 2 mg tablet 0-22 tablet by ity of 00:00: mouth [place] 00 every 8 Medical (eight) Branch hours as needed (severe muscle cramps). tiZANidine 2018-03 Yes [id number] 2mg Take 1 U nivers 2 mg tablet 0-22 tablet by ity of 00:00: mouth [place] 00 every 8 Medical (eight) Branch hours as needed (severe muscle cramps). tiZANidine 2018-03 Yes [id number] 2mg Take 1 U nivers 2 mg tablet 0-22 tablet by ity of 00:00: mouth [place] 00 every 8 Medical (eight) Branch hours as needed (severe muscle cramps). tiZANidine 2018-03 Yes [id number] 2mg Take 1 U nivers 2 mg tablet 0-22 tablet by ity of 00:00: mouth [place] 00 every 8 Medical (eight) Branch hours as needed (severe muscle cramps). tiZANidine 2018-03 Yes [id number] 2mg Take 1 U nivers 2 mg tablet 0-22 tablet by ity of 00:00: mouth [place] 00 every 8 Medical (eight) Branch hours as needed (severe muscle cramps). tiZANidine 2018-03 Yes [id number] 2mg Take 1 U nivers 2 mg tablet 0-22 tablet by ity of 00:00: mouth [place] 00 every 8 Medical (eight) Branch hours as needed (severe muscle cramps). ACCU-CHEK 2019-0 Yes [id number] Use as Un jose FASTCLIX 6-11 directed ity of LANCET DRUM 00:00: TIDAC [place] Misc E111.65 Medical Branch ACCU-CHEK 2019-0 Yes [id number] Use as Un jose FASTCLIX 6-11 directed ity of LANCET DRUM 00:00: TIDAC [place] Misc E111.65 Medical Branch ACCU-CHEK 2019-0 Yes [id number] Use as Un jose FASTCLIX 6-11 directed ity of LANCET DRUM 00:00: TIDAC [place] Misc E111.65 Medical Branch ACCU-CHEK 2019-0 Yes [id number] Use as Un jose FASTCLIX 6-11 directed ity of LANCET DRUM 00:00: TIDAC [facility] 00 E111.65 Medical Branch ACCU-CHEK 2019-0 Yes [id number] Use as Un jose FASTCLIX 6-11 directed ity of LANCET DRUM 00:00: TIDAC [facility] Medical Branch ACCU-CHEK 2019-0 Yes [id number] Use as Un jose FASTCLIX 6-11 directed ity of LANCET DRUM 00:00: TIDAC [facility] Medical Branch ACCU-CHEK 2018-0 Yes [id number] Use as Un jose FASTCLIX 6-11 directed ity [facility] LANCET DRUM [facility]1 Yes 40mg Take 40 mg U nivers 40 mg 0-10 by mouth ity of capsule 00:00: daily. [place] [facility] omeprazole 2018-1 Yes 40mg Take 40 mg U nivers 40 mg 0-10 by mouth ity of capsule 00:00: daily. [place] [facility] omeprazole 2018-1 Yes 40mg Take 40 mg U nivers 40 mg 0-10 by mouth ity of capsule 00:00: daily. [place] [facility] omeprazole 2018-1 Yes 40mg Take 40 mg U nivers 40 mg 0-10 by mouth ity of capsule 00:00: daily. [place] [facility] omeprazole 2018-1 Yes 40mg Take 40 mg U nivers 40 mg 0-10 by mouth ity of capsule 00:00: daily. [place] [facility] omeprazole 2018-1 Yes 40mg Take 40 mg U nivers 40 mg 0-10 by mouth ity of capsule 00:00: daily. [place] [facility] omeprazole 2018-1 Yes 40mg Take 40 mg U nivers 40 mg 0-10 by mouth ity of capsule 00:00: daily. [place] [facility] SYMBICORT 2018-0 Yes USE 2 Univers 160-4.5 8-03 INHALATION ity of mcg/actuati 00:00: S TW[place] inhaler 00 DAY Medical NEEDED FOR Branch SHORTNESS OF BREATH, WHEEZING SYMBICORT 2018-0 Yes USE 2 Univers 160-4.5 8-03 INHALATION ity of mcg/actuati 00:00: S TWICE [place] inhaler 00 DAY Medical NEEDED FOR Branch SHORTNESS OF BREATH, WHEEZING SYMBICORT 2018-0 Yes USE 2 Univers 160-4.5 8-03 INHALATION ity of mcg/actuati 00:00: S TWICE [place] inhaler 00 DAY Medical NEEDED FOR Branch SHORTNESS OF [...] FOR Branch SHORTNESS OF BREATH, WHEEZING clopidogrel Yes [id number] 75mg Take 1 Univers (PLAVIX) 75 6-28 tablet by ity of mg tablet 00:00: mouth [place] 00 daily. Medical Branch clopidogrel Yes [id number] 75mg Take 1 Univers (PLAVIX) 75 6-28 tablet by ity of mg tablet 00:00: mouth [place] 00 daily. Medical Branch clopidogrel 2017 Yes [id number] 75mg Take 1 Univers (PLAVIX) 75 6-28 tablet by ity of mg tablet 00:00: mouth [place] 00 daily. [facility] Branch clopidogrel Yes [id number] 75mg Take 1 Univers (PLAVIX) 75 6-28 tablet by ity of mg tablet 00:00: mouth [place] 00 daily. [facility] Branch clopidogrel 2017- Yes [id number] 75mg Take 1 Univers (PLAVIX) 75 6-28 tablet by ity of mg tablet 00:00: mouth [place] 00 daily. [facility] Branch clopidogrel 2017- Yes [id number] 75mg Take 1 Univers (PLAVIX) 75 6-28 tablet by ity of mg tablet 00:00: mouth [place] 00 daily. [facility] Branch clopidogrel 2017-0 Yes [id number] 75mg Take 1 Univers (PLAVIX) 75 6-28 tablet by ity of mg tablet 00:00: mouth [place] 00 daily. Medical Branch Oral 2014-03 Yes Use as Univers Medication -02 directed, ity of Containers 00:00: DX:E11.65 [place] (SHARPSAFET 00 Medical Y Branch CONTAINER) [facility] Oral 2014-03 Yes Use as Univers Medication - directed, ity of Containers 00:00: DX:E11.65 [place] (SHARPSAFET 00 Medical Y Branch CONTAINER) [facility] Oral 2014-03 Yes Use as Univers Medication - directed, ity of Containers 00:00: DX:E11.65 [place] (SHARPSAFET 00 Medical Y Branch CONTAINER) [facility] Oral 2014-03 Yes Use as Univers Medication - directed, ity of Containers 00:00: DX:E11.65 [place] (SHARPSAFET 00 Medical Y Branch CONTAINER) [facility] Oral 2014-03 Yes Use as Univers Medication - directed, ity of Containers 00:00: DX:E11.65 [place] (SHARPSAFET 00 Medical Y Branch CONTAINER) [facility] Oral 2014-03 Yes Use as Univers Medication - directed, ity of Containers 00:00: DX:E11.65 [place] (SHARPSAFET 00 Medical Y Branch CONTAINER) [facility] Oral 2014-03 Yes Use as Univers Medication - directed, ity of Containers 00:00: DX:E11.65 [place] (SHARPSAFET 00 Medical Y Branch CONTAINER) [facility] lovastatin Yes [id number] 20mg Take 1 Tab Univers (MEVACOR) 11-11 by mouth ity of 20 mg 00:00: at [place] tablet 00 bedtime. [facility] lovastatin Yes [id number] 20mg Take 1 Tab Univers (MEVACOR) 11-11 by mouth ity of 20 mg 00:00: at [place] tablet 00 bedtime. [facility] lovastatin Yes [id number] 20mg Take 1 Tab Univers (MEVACOR) 02 by mouth ity of 20 mg 00:00: at [place] tablet 00 bedtime. [facility] lovastatin Yes [id number] 20mg Take 1 Tab Univers (MEVACOR) 11-11 by mouth ity of 20 mg 00:00: at [place] tablet 00 bedtime. Medical Branch lovastatin 0 Yes [id number] 20mg Take 1 Tab Univers (MEVACOR) 9-02 by mouth ity of 20 mg 00:00: at [place] tablet 00 bedtime. Medical Branch lovastatin 0 Yes [id number] 20mg Take 1 Tab Univers (MEVACOR) 9-02 by mouth ity of 20 mg 00:00: at [place] tablet 00 bedtime. Medical Branch lovastatin Yes [id number] 20mg Take 1 Tab Univers (MEVACOR) 9-02 by mouth ity of 20 mg 00:00: at [place] tablet 00 bedtime. Medical Branch Immunizations Ordered Filled Immunization Date Status Comments [facility] e Immunization Name Name Influenza Virus 2021-01-27 [...] 65+ Td 2020-09-04 Completed University of 00:00:00 [facility] Td 2020-09-04 Completed University of 00:00:00 [facility] Td 2020-09-04 Completed University of 00:00:00 [facility] Td 2020-09-04 Completed University of 00:00:00 [facility] Td 2020-09-04 Completed University of 00:00:00 [facility] Td 2020-09-04 Completed University of 00:00:00 [facility] Td 2020-09-04 Completed University of 00:00:00 [facility] Influenza High Dose 2020-01-27 Completed Unive rsity of Quad 00:00:00 [facility] Influenza High Dose 2020-01-27 Completed Unive rsity of [place] 00:00:00 [facility] Influenza High Dose 2020-01-27 Completed Unive rsity of [place] 00:00:00 [facility] Influenza High Dose 2020-01-27 Completed Unive rsity of [place] 00:00:00 [facility] Influenza High Dose 2020-01-27 Completed Unive rsity of [place] 00:00:00 [facility] Influenza High Dose 2020-01-27 Completed Unive rsity of [place] 00:00:00 [facility] Influenza High Dose 2020-01-27 Completed Unive rsity of Quad 00:00:00 [facility] Influenza High Dose 2018-12-31 Completed Unive rsity of 00:00:00 [facility] Influenza High Dose 2018-12-31 Completed Unive rsity of 00:00:00 [facility] Influenza High Dose 2018-12-31 Completed Unive rsity of 00:00:00 [facility] Influenza High Dose 2018-12-31 Completed Unive rsity of 00:00:00 [facility] Influenza High Dose 2018-12-31 Completed Unive rsity of 00:00:00 [facility] Influenza High Dose 2018-12-31 Completed Unive rsity of 00:00:00 [facility] Influenza High Dose 2018-12-31 Completed Unive rsity of 00:00:00 [facility] Zoster Vaccine 2018-02-07 Completed University of Recombinant 00:00:00 [facility] Zoster Vaccine 2018-02-07 Completed University of Recombinant 00:00:00 [facility] Zoster Vaccine 2018-02-07 Completed University of Recombinant 00:00:00 [facility] Zoster Vaccine 2018-02-07 Completed University of Recombinant 00:00:00 [facility] Zoster Vaccine 2018-02-07 Completed University of Recombinant 00:00:00 [facility] Zoster Vaccine 2018-02-07 Completed University of Recombinant 00:00:00 [facility] Zoster Vaccine 2018-02-07 Completed University of Recombinant 00:00:00 [facility] Influenza High Dose 2017-11-20 Completed Unive rsity of 00:00:00 [facility] Influenza High Dose 2017-11-20 Completed Unive rsity of 00:00:00 [facility] Influenza High Dose 2017-11-20 Completed Unive rsity of 00:00:00 [facility] Influenza High Dose 2017-11-20 Completed Unive rsity of 00:00:00 [facility] Influenza High Dose 2017-11-20 Completed Unive rsity of 00:00:00 [facility] Influenza High Dose 2017-11-20 Completed Unive rsity of 00:00:00 [facility] Influenza High Dose 2017-11-20 Completed Unive rsity of 00:00:00 [facility] Zoster Vaccine 2017-11-15 Completed University of Recombinant 00:00:00 [facility] Zoster Vaccine 2017-11-15 Completed University of Recombinant 00:00:00 [facility] Zoster Vaccine 2017-11-15 Completed University of Recombinant 00:00:00 [facility] Zoster Vaccine 2017-11-15 Completed University of Recombinant 00:00:00 [facility] Zoster Vaccine 2017-11-15 Completed University of Recombinant 00:00:00 [facility] Zoster Vaccine 2017-11-15 Completed University of Recombinant 00:00:00 [facility] Zoster Vaccine 2017-11-15 Completed University of Recombinant 00:00:00 [facility] Pneumococcal 2017-03-14 Completed University o f Polysaccharide, 00:00:00 [place] Med ical PPSV23 (PNEUMOVAX) Branch Pneumococcal 2017-03-14 Completed University o f Polysaccharide, 00:00:00 [place] Med ical PPSV23 (PNEUMOVAX) Branch Pneumococcal 2017-03-14 Completed University o f Polysaccharide, 00:00:00 [place] Med ical PPSV23 (PNEUMOVAX) Branch Pneumococcal 2017-03-14 Completed University o f Polysaccharide, 00:00:00 [place] Med ical PPSV23 (PNEUMOVAX) Branch Pneumococcal 2017-03-14 Completed University o f Polysaccharide, 00:00:00 [place] Med ical PPSV23 (PNEUMOVAX) Branch Pneumococcal 2017-03-14 Completed University o f Polysaccharide, 00:00:00 [place] Med ical PPSV23 (PNEUMOVAX) Branch Pneumococcal 2017-03-14 Completed University o f Polysaccharide, 00:00:00 [place] Med ical PPSV23 (PNEUMOVAX) Branch Influenza High Dose 2017-01-04 Completed Unive rsity of 00:00:00 [facility] Influenza High Dose 2017-01-04 Completed Unive rsity of 00:00:00 [facility] Influenza High Dose 2017-01-04 Completed Unive rsity of 00:00:00 [facility] Influenza High Dose 2017-01-04 Completed Unive rsity of 00:00:00 [facility] Influenza High Dose 2017-01-04 Completed Unive rsity of 00:00:00 [facility] Influenza High Dose 2017-01-04 Completed Unive rsity of 00:00:00 [facility] Influenza High Dose 2017-01-04 Completed Unive rsity of 00:00:00 [facility] TDAP 2016-02-25 Completed University of 00:00:00 [facility] TDAP 2016-02-25 Completed University of 00:00:00 [facility] TDAP 2016-02-25 Completed University of 00:00:00 [facility] TDAP 2016-02-25 Completed University of 00:00:00 [facility] TDAP 2016-02-25 Completed University of 00:00:00 [facility] TDAP 2016-02-25 Completed University of 00:00:00 [facility] TDAP 2016-02-25 Completed University of 00:00:00 [facility] Influenza High Dose 2016-01-26 Completed Unive rsity of 00:00:00 [facility] Influenza High Dose 2016-01-26 Completed Unive rsity of 00:00:00 [facility] Influenza High Dose 2016-01-26 Completed Unive rsity of 00:00:00 [facility] Influenza High Dose 2016-01-26 Completed Unive rsity of 00:00:00 [facility] Influenza High Dose 2016-01-26 Completed Unive rsity of 00:00:00 [facility] Influenza High Dose 2016-01-26 Completed Unive rsity of 00:00:00 [facility] Influenza High Dose 2016-01-26 Completed Unive rsity of 00:00:00 [facility] Pneumococcal 13 2015-09-03 Completed Universit y of Conjugate, PCV13 00:00:00 [place] T[place] dical (Prevnar 13) Branch Pneumococcal 13 2015-09-03 Completed Universit y of Conjugate, PCV13 00:00:00 [place] Me dical (Prevnar 13) Branch Pneumococcal 13 2015-09-03 Completed Universit y of Conjugate, PCV13 00:00:00 [place] Me dical (Prevnar 13) Branch Pneumococcal 13 2015-09-03 Completed Universit y of Conjugate, PCV13 00:00:00 [place] Tx dical (Prevnar 13) Branch Pneumococcal 13 2015-09-03 Completed Universit y of Conjugate, PCV13 00:00:00 [facility] [place] [facility] dical (Prevnar 13) Branch Pneumococcal 13 2015-09-03 Completed Universit y of Conjugate, PCV13 00:00:00 [facility] [place] [facility] dical (Prevnar 13) Branch Pneumococcal 13 2015-09-03 Completed Universit y of Conjugate, PCV13 00:00:00 [facility] [place] [facility] dical (Prevnar 13) Branch Zoster(Zostavax)( 2011-02-24 Completed Unive rsity of ingles) 00:00:00 [facility] Zoster(Zostavax)( 2011-02-24 Completed Unive rsity of ingles) 00:00:00 [facility] Zoster(Zostavax)( 2011-02-24 Completed Unive rsity of ingles) 00:00:00 [facility] Zoster(Zostavax)( 2011-02-24 Completed Unive rsity of ingles) 00:00:00 [facility] Zoster(Zostavax)( 2011-02-24 Completed Unive rsity of ingles) 00:00:00 [facility] Zoster(Zostavax)( 2011-02-24 Completed Unive rsity of ingles) 00:00:00 [facility] Zoster(Zostavax)( 2011-02-24 Completed Unive rsity of ingles) 00:00:00 [facility] Hep B, Adol or Pedi 1997-07-10 Completed Unive rsity of Dosage 00:00:00 [facility] Hep B, Adol or Pedi 1997-07-10 Completed Unive rsity of Dosage 00:00:00 [facility] Hep B, Adol or Pedi 1997-07-10 Completed Unive rsity of Dosage 00:00:00 [facility] Hep B, Adol or Pedi 1997-07-10 Completed Unive rsity of Dosage 00:00:00 [facility] Hep B, Adol or Pedi 1997-07-10 Completed Unive rsity of Dosage 00:00:00 [facility] Hep B, Adol or Pedi 1997-07-10 Completed Unive rsity of Dosage 00:00:00 [facility] Hep B, Adol or Pedi 1997-07-10 Completed Unive rsity of Dosage 00:00:00 [facility] Vital Signs Vital Name Observation Time Observation Value Comments Source Systolic blood 2021-02-22 19:09:00 130 mm[Hg] Univer sity [facility] pressure [facility] Diastolic blood 2021-02-22 19:09:00 [facility] 2021-02-22 19:09:00 74 /min [facility] Body height 2021-02-22 19:09:00 160 cm [facility] Body weight 2021-02-22 19:09:00 94.348 kg [facility] BMI 2021-02-22 19:09:00 36.85 kg/m2 [facility] Oxygen saturation 2021-02-22 19:09:00 97 /min [facility] in Arterial blood Medical Br anch by Pulse oximetry Procedures Procedure Date / Time Performed Performing Clinician Sour e POCT HEMOGLOBIN A1C 2021-02-22 19:19:00 Rom[facility] DIABETES TESTING 2021-02-22 06:01:00 Doctor Unassigned, No Unive [facility] REPORTS Name Medical [place] Plan of Care Planned Activity Planned Date Details Comments Source Future Scheduled 2021-01-05 [place] CANALITH Ordered: [facility] Roger ege Test 11:20:05 REPOSITIONING 01/05/2021 of Medicine PROCEDURE, PER DAY [code = 28466] Future Scheduled 2021-01-05 [place] OCCUPATIONAL Ordered: [facility] C ollege Test 11:20:05 THERAPY EVAL MOD 01/05/2021 of Medicine COMPLEX 45 MINS [code = 265[address]] Future Scheduled 2021-01-05 Screening for [facility] Col lege Test 11:06:55 malignant neoplasm of of Med icine colon (procedure) [code = 475825670] Future Scheduled 2021-01-05 Screening for [facility] Col lege Test 11:06:55 malignant neoplasm of of Med icine breast (procedure) [code = 806720335] Future Scheduled 2021-01-05 Hepatitis C screening [facility] Test 11:06:55 (procedure) [code = of Medic ine [id number]] Future Scheduled 2021-01-05 ZOSTER VACCINE (1 of [employer] Test 11:06:55 2) [code = ZOSTER of Medicin e VACCINE (1 of 2)] Future Scheduled 2021-01-05 MEDICARE AWV [facility] Roger ege Test 11:06:55 (Initial) [code = of Medicin e MEDICARE AWV (Initial)] Future Scheduled 2021-01-05 FALL SCREEN [code = [employer] Test 11:06:55 FALL SCREEN] of Medicine Future Scheduled 2021-01-05 Screening for [facility] Col lege Test 11:06:55 osteoporosis of Medicine (procedure) [code = 253692813] Future Scheduled 2021-01-05 FLU VACCINE > 6 [facility] C ollege Test 11:06:55 MONTHS [code = FLU of Medici ne VACCINE > 6 MONTHS] Future Scheduled 2021-01-05 TETANUS SHOT (ADULT) [facility] Test 11:06:55 [code = TETANUS SHOT of Medi cine (ADULT)] Encounters Start End Encounter Admission Attending Care Care Encounter Source Date/Time Date/Time Type Type Clinicians Facility Department ID 2021-07-19 2021-07-19 [facility] [id number] Univers 15:00:00 15:00:00 [id number] [facility] 2021-07-19 2021-07-19 [facility] [id number] Univers 15:00:00 15:00:00 [facility] 2021-04-25 2021-04-25 [facility] [id number] Univers 08:16:00 08:16:00 BAN [facility] 2021-04-21 2021-04-21 [facility] [id number] Univers 00:00:00 00:00:00 Elizabeth PARSON [id number] [facility] 4.2.7.2.686 Samanta BAIRD [id number] [address] 2021-04-19 2021-04-19 [facility] [id number] Univers 16:20:00 16:20:00 [id number] [facility] 2021-04-19 2021-04-19 Outpatient R [facility] [id number] Univers 16:20:00 16:20:00 ELIZABETH [facility] 2021-04-13 2021-04-13 [facility] [id number] Univers 00:00:00 [facility]00[facility] [id number] [facility] 4.2.7.2.686 Angel as ATIF?BLEA [id number] [address] OFFICE [facility] 2021-04-05 2021-04-05 [facility]phone [facility] [id number] Univers 00:00:00 00:00:00 [facility] [id number] it y of [place] 4.2.7.2.686 Angel as ATIF?BLEA [id number] [address] OFFICE [facility] 2021-03-30 2021-03-30 [facility]ill [facility] [id number] Univers 00:00:00 00:00:00 Elizabeth [facility] [id number] it[place] 4[place]2.7.2.[place] [phone] [address] 2021-02-22 2021-02-22 Office [facility] [id number] Univers 13:00:00 13:57:24 Visit Samir [facility] [id number] ity of [place] 4.2.7.2.686 Angel as ATIF?BLEA [phone] [address] OFFICE [facility] 2021-02-22 2021-02-22 Outpatient R [facility] [id number] Univers 13:00:00 13:57:24 [facility] ity [facility] 2021-02-22 2021-02-22 Orders Doctor KRUGER [id number] Univers 00:00:00 00:00:00 Only Unassigned, BEV [id number] ity of [place] [facility] .2.7.2.686 Angel as [phone] Medi jess [address] 2021-02-09 2021-02-09 Outpatient [facility] [id number] [address] [place] 00:00:00 00:00:00 IRFAN [address] 2021-02-09 2021-02-09 Outpatient [facility] [id number] [address] [place] 00:00:00 00:00:00 IRFAN [address] 2021-01-04 2021-01-04 Office SIMA Grady [id number] [facility] 11:00:05 13:00:33 Visit Aliya AMBULATOR 350.1.13.21 College Y 0.2.7.2.686 of [id number] [facility] jonel 805 e 2021-01-04 2021-01-04 Outpatient SIM[place] [id number] [facility] 09:08:58 11:00:25 MAG Hu e of Medicin e 2020-12-14 2020-12-14 Outpatient MIGUEL A [facility] [id number] [facility] 00:00:00 00:00:00 ALIYA Hu e of Medicin e 2020-05-09 2020-05-09 Outpatient [facility] [id number] [address] [place] 00:00:00 00:00:00 [address] 2020-04-18 2020-04-18 [facility] [id number] [address] [place] 00:00:00 00:00:[address] Results Test Description Test Time Test Comments Results Result Comments Source POCT HEMOGLOBIN A1C TEST 2021-02-22 19:20:00 Test Item Value Reference Range Interpretation Comme nts POCT HBA1C (test code = 4548-4) 8.4 % 4-6 A Lab Interpretation (test code = 55621-2) [facility] [id number] 19:20:00 Test Item Value Reference Range Interpretation Comments POCT HBA1C (test code = 4548-4) 8.4 % 4-6 A Lab Interpretation (test code = Abnormal 57636-9) [facility]
[2021-04-29] MEDS ORDERED: DOCUSATE NA 100 MG CAP PO PRN (23:55)
[2021-04-30] MEDS ORDERED: ALBUTEROL INHALER 60 PUFF/8 GM IH PRN (00:03)
[2021-04-30] MEDS ORDERED: SYMBICORT IH PRN (00:24)
[2021-04-30] MEDS ORDERED: GLUCAGON 1 MG/VIAL IM PRN ×4 (00:28→00:44)
[2021-04-30] MEDS ORDERED: D50W 25 GM/50 ML SYRINGE IV PRN ×4 (00:28→00:44)
[2021-04-30] MEDS: TIZANIDINE 4 MG TABLET PO PRN (07:11)
[2021-04-30] MEDS: PANTOPRAZOLE 40MG TABLET PO SCH (07:12)
[2021-04-30 07:13] LABS: Albumin 2.3 g/dL (3.4-5.0); Prealbumin 9.3 mg/dL (20-40)
[2021-04-30 07:14] LABS: Magnesium 1.7 mg/dL (1.8-2.4); Potassium 4.1 mmol/L (3.5-5.1)
[2021-04-30 07:31] LABS: Absolute Lymphocytes (CBC) 2.2 K/uL (0.7-4.9); Hematocrit 36.3 % (36.0-45.0); Lymphocytes % 23.1 % (15.3-44.8); RBC Red Blood Cell Count 4.46 M/uL (3.86-4.86)
[2021-04-30] MEDS: HOME MED 1 EA UNK (Ozempic 0.5 MG) SQ SCH (08:00)
[2021-04-30] MEDS: INSULIN -REGULAR HUMAN 50 UNIT/0.5 ML ML SQ SCH ×4 (08:31→20:30)
[2021-04-30] MEDS: INSULIN 70/30 100 UNITS/ML SQ SCH ×4 (08:32→17:00)
[2021-04-30] MEDS: FLUOXETINE 20 MG CAP PO SCH (08:33)
[2021-04-30] MEDS: DOCOSAHEXANOIC AC/EPA 1000 MG PO SCH (08:33)
[2021-04-30] MEDS: CLOPIDOGREL 75 MG TABLET PO SCH (08:33)
[2021-04-30] MEDS: FOLIC ACID 1 MG TABLET PO SCH (08:33)
[2021-04-30] MEDS: VITAMIN B COMPLEX 1 CAP PO SCH (08:34)
[2021-04-30] MEDS: cloNIDine HCL 0.1 MG TAB PO SCH ×3 (08:34→20:43)
[2021-04-30] MEDS: lisinopriL 20 MG TAB PO SCH (08:34)
[2021-04-30] MEDS: MAGNESIUM OXIDE 400 MG TAB PO SCH ×2 (08:34→20:43)
[2021-04-30] MEDS: VITAMIN D 1000 UNIT TAB PO SCH (08:34)
[2021-04-30] MEDS ORDERED: PHENOL 1.4% ORAL SPRAY 180ML MM PRN (10:33)
[2021-04-30] MEDS: PROPRANOLOL HCL 60 MG SA CAP PO SCH (10:42)
[2021-04-30] MEDS: FLUTICASONE 50MCG NASAL SPRAY NAS SCH (10:42)
[2021-04-30] MEDS: METHOTREXATE 2.5 MG TAB PO SCH (10:43)
[2021-04-30] MEDS ORDERED: FORMULATION-R RECTAL 57GM PR PRN (10:45)
[2021-04-30] MEDS: TRAMADOL HCL 50 MG TAB PO PRN (14:18)
[2021-04-30] MEDS: AMLODIPINE 2.5 MG TAB PO SCH (17:08)
--- NOTE | 2021-04-30 17:17 | R.HP ---
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 board/care, assisted living, fci, transitional living) PRE-HOSPITAL LIVING WITH Family/Relatives ENCOUNTER PHYSICIAN: Dr. Sam Stephens M.D. REFERRING DOCTOR: HAJA BENJAMIN MD DATE OF ADMISSION: 04/29/2021 22:36 (HEARING HEALTHCARE PRACTITIONER) REFERRING FACILITY [facility] HOME TYPE AND DETAILS: Type of home: single family house # of levels in the residence: 1 # of steps within the residence: 0 # of steps to enter the residence: 0 ONSET DATE: 04/25/2021 PRIMARY DIAGNOSIS-RELATED SURGERIES: N/A HISTORY OF PRESENT ILLNESS (HPI): Pt. is a 76 yo Right-handed female. On 04/25/2021 she was admitted to [facility] with diagnosis Closed Fracture of Transverse Process of [place]. Her impairment category is Orthopaedic Disorders 08 - Other Orthopaedic (08.9). Pre-morbidly, Pt. was independent/mod-I in Locomotion, Safety Awareness, Social Cognition, and Balanc e; and she had good Transfers Control, Sphincter Control, Self-Care, Communication, and Endurance. Currently, she has deficits of Locomotion, Safety Awareness, Social Cognition, Balance, Transfers Con trol, Sphincter Control, Self-Care, Communication, and Endurance. Pt. is now referred to [facility] for acute in-patient rehabilitation in order to maximize patient's functional independence in activities of daily living, strength, ROM, and mobi lity. Patient has realistic goal of being discharged at assistance level 7-Ind to reside at Home with Fami ly/Relatives. MEDICATION ALLERGIES: No Known Drug Allergies (NKDA) ENVIRONMENTAL ALLERGIES: - Substance Allergies None Known - Other Allergies None Known PAST MEDICAL HISTORY: ANXIETY Parkinson's Disease BPPV ASTHMA BLOOD CLOT ASSOCIATED WITH VEIN WALL INFLAMMATION CATARACT CHRONIC PAIN DEPRESSION DM2 ESOPHAGEAL REFLUX H/O LUMPECTOMY H/O REPAIR OF ROTATOR CUFF STOMACH ULCER THYROID DISEASE HYPERTENSION HYPERLIPIDEMIA BOTTOM LOOSE TEETH PID RHEUMATOID ARTHRITIS VULVAR INTRAEPITHELIAL NEOPLASIA FALLS, PAST SURGICAL HISTORY: HYSTERECTOMY IBS OSTEOPOROSIS STATUS POST WRIST SURGERY BREAST BIOPSY BREST LUMPECTOMY DISCECTOMY ADENOIDECTOMY TONSILLECTOMY TOTAL KNEE ARTHROPLASTY PHACOEMULSIFICATION OF CATARACT SOCIAL HISTORY: - Home Living Family/Relatives REVIEW OF SYSTEMS: - Gen No Chills Fatigue No Fever - Eyes No Double Vision No itchiness - ENMT No Difficulty Swallowing - CVS No Chest Discomfort No Chest Pain Fatigue No Weight Gain - Resp No Cough Shortness of Breath - GI Continent No Abdominal Pain No Constipation No Diarrhea - Continent No Kidney Pain No Painful Urination No Urinary Urgency - MSK Joint Pain No Muscle Cramps Stiffness - Skin No Itching No Rash No Suspicious Lesions - Neuro Coordination Difficulty No Difficulty with Concentration No Memory Loss No Seizures Weakness - Psych No Anxiety No Depression No HIV Exposure No Persistent Infections No Seasonal Allergies - Endo No Cold/Heat Intolerance No Excessive Hunger No Excessive Thirst No Excessive Urination PHYSICAL EXAM - Gen Alert and awake Lying in bed No apparent distress Oriented to: person, time, and place - Skin No skin breakdown. Normacephalic - Eyes No abnormalities - ENMT No abnormalities - Neck [place] J cervical collar is in place - CVS RRR - Chest No abnormalities - Abd Soft - GI Non distended Deferred - No abnormalities - Ext Mild bilateral lower extremity edema. - MSK 4+/5 weakness in both lower extremities. - Neuro No focal deficits VITAL SIGNS Temperature: 97.4 F SBP/DBP: 162/68 Pulse: 60 Resp: 16 NURSING: - Shower allowing shower - Skin care per protocol PRECAUTIONS: - Weight Bearing Precaution NO LIFTING GREATER THAN 5 LBS ACTIVITIES OOB only with supervision QI SCORES: - Self-Care A. Eating 06-Independent B. Oral hygiene 03-Partial/moderate assistance C. Toileting hygiene 02-Substantial/maximal assistance E. Shower/bathe self 02-Substantial/maximal assistance F. Upper body dressing 03-Partial/moderate assistance G. Lower body dressing 02-Substantial/maximal assistance H. Putting on/taking off footwear 88-Not attempted due to medical condition or safety concerns - Mobility A. Roll left and right 03-Partial/moderate assistance B. Sit to lying 03-Partial/moderate assistance C. Lying to sitting on side of bed 03-Partial/moderate assistance D. Sit to stand 03-Partial/moderate assistance E. Chair/acs-ik-sbtco transfer 03-Partial/moderate assistance F. Toilet transfer 02-Substantial/maximal assistance G. Car transfer 88-Not attempted due to medical condition or safety concerns I. Walk 10 feet 03-Partial/moderate assistance J. Walk 50 feet with two turns 88-Not attempted due to medical condition or safety concerns K. Walk 150 feet 88-Not attempted due to medical condition or safety concerns L. Walking 10 feet on uneven surfaces 88-Not attempted due to medical condition or safety concerns M. 1 step (curb) 88-Not attempted due to medical condition or safety concerns N. 4 steps 88-Not attempted due to medical condition or safety concerns O. 12 steps 88-Not attempted due to medical condition or safety concerns P. Picking up object 88-Not attempted due to medical condition or safety concerns R. Wheel 50 feet with two turns 88-Not attempted due to medical condition or safety concerns S. Wheel 150 feet - Bladder and Bowel Bladder continence Bowel continence - Endurance Fair - Balance Fair - Safety Awareness Fair CURRENT FUNC. DEFICITS: Mobility, Endurance, Balance, Safety Awareness, and Self-Care MEDICATIONS: - Other See attached MAR (Medication Administration Record) ASSESSMENT: Pt. is a 76 yo Right-handed female.On 04/25/2021 she was admitted to [facility] with diagnosis Cl osed Fracture of Transverse Process of [place].Her impairment category is Orthopaedic Disorders 08 - Ot her Orthopaedic (08.9).Pre-morbidly, Pt. was independent/mod-I in Locomotion, Safety Awareness, Socia l Cognition, and Balance; and she had good Transfers Control, Sphincter Control, Self-Care, Communica tion, and Endurance.Currently, she has deficits of Locomotion, Safety Awareness, Social Cognition, Ba brianda, Transfers Control, Sphincter Control, Self-Care, Communication, and Endurance.Pt. is now refer red to [facility] for acute in-patient rehabilitation in order to maximize pat ciarra's functional independence in activities of daily living, strength, ROM, and mobility.- Rehab Goa l Patient has realistic goal of being discharged at assistance level 7-Ind to reside at Home with Fami ly/Relatives. - Physical Therapy Decreased range of motion - to improve, our physical therapists will perform initial evaluation of pt 's status upon admission and devise an individualized program for increasing patient's Range of Motio n. Gait dysfunction - to improve, our physical therapists will perform initial evaluation of pt's status upon admission and devise an individualized program for Gait Training, and Wheel Chair mobility Inability to transfer - to improve, our physical therapists will perform initial evaluation of pt's s tatus upon admission and devise an individualized program for Bed mobility Need for home safety evaluation - to improve, our physical therapists will perform initial evaluation of pt's status upon admission and devise an individualized program for Home Evaluation Need in caregiver upon discharge - to improve, our physical therapists will perform initial evaluatio n of pt's status upon admission and devise an individualized program for Caregiver Training New precaution - to improve, our physical therapists will perform initial evaluation of pt's status u danny admission and devise an individualized program for Patient precaution education Edema - to improve, our physical therapists will perform initial evaluation of pt's status upon admi ssion and devise an individualized program for Elevation Training, and Lymphedema Therapy Poor balance - to improve, our physical therapists will perform initial evaluation of pt's status upo n admission and devise an individualized program for Balance Training Poor endurance - to improve, our physical therapists will perform initial evaluation of pt's status u danny admission and devise an individualized program for Endurance Training Weakness - to improve, our physical therapists will perform initial evaluation of pt's status upon ad mission and devise an individualized program for Aquatic Therapy, Neuromuscular Reeducation, and Stre ngthening Achieving independence - to improve, our physical therapists will perform initial evaluation of pt's status upon admission and devise an individualized program for Community Reintegration Activities - Occupational Therapy ADL deficits - to improve, our occupation therapists will perform initial evaluation of pt's status u danny admission and devise an individualized program for Bathing, Bed mobility, Community Reintegration , Cooking, Dressing, Eating, Fine Motor Skills, Grooming, Homemaking, Kitchen Mobility, Laundry, Ana ent Education, Safety Awareness, Splinting - Positioning, Transfers(Toilet, Tub, Shower), and Wheel C hair Management Cognitive deficits - to improve, our occupation therapists will perform initial evaluation of pt's st atus upon admission and devise an individualized program for Cognition - orientation Need for childcare administrator - to improve, our occupation therapists will perform initial evaluation of pt's s tatus upon admission and devise an individualized program for Caregiver Training Weakness - to improve, our occupation therapists will perform initial evaluation of pt's status upon admission and devise an individualized program for Aquatic Therapy, Balance, Endurance, UE ROM, and U E strengthening MEDICAL PLAN: - Diet Type Start Regular - Diet - Liquid Texture Start Regular - Tube Feed Start N/A - Weight Bearing Precaution NO LIFTING GREATER THAN 5 LBS - Skin care per protocol - Other See attached MAR (Medication Administration Record) - Diet - Solid Texture Regular - Shower shower DISCHARGE PLAN: - Estimated Length of Stay (days) 12. - Consensus on plan Discharge plan has been discussed with primary caregiver. Patient/Family is in agreement with the fatmata n. Primary caregiver is in agreement with the plan. - Patient/Family Goals Return home independently. - Planned Living Setting Upon Discharge Home, to live with Family/Relatives. Transitional Living. SIGNATURE PANEL: (HEARING HEALTHCARE PRACTITIONER)
--- NOTE | 2021-04-30 17:18 | PAPE ---
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 Sam Stephens M.D. ADMISSION DIAGNOSIS: Closed Fracture of Transverse Process of [place] ONSET DATE 04/25/2021 POST-ADMISSION FUNCTIONAL/MEDICAL STATUS: - Bladder Same accident frequency: 7-Ind - No accidents in the past 7 days - Bowel Same accident frequency: 7-Ind - No accidents in the past 7 days - Walking Same score based on distance walked: 0(N/A) Same score based on distance walked: 1(<=50ft) - Wheelchair Same score based on distance traveled: 0(N/A) STATUS CHANGE EVALUATION: No change in Functional or Medical Status is identified compared with Pre-Admission screening. PATIENT NEEDS CLOSE MEDICAL SUPERVISION BY A REHABILITATION PHYSICIAN FOR: Coordination of Treatment Team Medical and Co-Morbidity Management DVT Management Diabetes Management PATIENT REQUIRES 24X7 REHAB NURSING FOR MEDICAL AND FUNCTIONAL MGT. OF THE FOLLOWING DEFICITS: Disease Management Medication Management Patient/Family Education Providing Safe Environment Skin Integrity Pain Management Bowel and Bladder Management PATIENT REQUIRES INTENSIVE, COORDINATED INTERDISCIPLINARY APPROACH TO REHAB: Arranging Home Equipment/Services Discharge Planning Family Intervention/Training Sheet Metal Operator/Case Management LIST OF IDENTIFIED AND POTENTIAL PROBLEMS: Alteration in leisure activities Bladder, Incontinence Bowel, Incontinence Infection, Actual or Potential Mobility Impaired Pain, Alteration in Comfort Self Care Deficit Skin Integrity, Actual or Potential Urinary Tract Infection (UTI), Actual or Potential RISK FOR COMPLICATIONS - CVA pt's blood pressures have been inconsistent and require monitoring and medication management as inidi cated by physician. - SKIN BREAKDOWN Nursing will assess skin daily using assessment tool and will place on Skin Breakdown Precautions as Indicated per protocol. - Falls Patient will be evaluated for Fall Precautions and will be placed on Fall Precautions as indicated pe r protocol. Educated pt on fall prevention strategies to reduce/eliminate fall risk. pt is high risk for falls and has experienced falls at home. - DIABETIC COMPLICATIONS Regular monitoring and management of blood glucose levels. - Hypertension Blood pressure will be monitored regularly and medications administer per MD to manage effective bloo d pressure. - Pain Clinical staff will assess patient's pain level every shift per protocol to monitor for pain manageme nt effectiveness. Educate patient on pain management strategies. - Pneumonia pt will be instructed on use of and be encouraged to use incentive spirometry. regular OOB activity a nd exercise to reduce risk. Interval Chest X-Rays will be obtained as necessary. pt will be trained o n deep breathing exercises due to rib fractures. - DVT PTT and INR will be monitored to effectively mitigate risk for development of DVT or PE while here. M edications will be administered as per MD. INTERVENTIONS - DIABETES Monitor blood glucose levels and administer medication as indicated by Physician. - HYPERTENSION Blood pressure will be regularly assessed and medications administered as per physician recommendatidemi ns. - Asthma Monitoring of patient symptoms and administering medications as indicated by physician. - C2 fx Monitoring patient's neurological symtoms. Administering pain medication as indicated by physcian. - GERD Monitor symptoms and provide medication as indicated by physician. PATIENT COULD BE AT RISK FOR COMPLICATIONS FROM ADVERSE MEDICAL CONDITIONS DUE TO HIS/HER COMORBIDITI ES AND THE RIGORS OF THE INTENSIVE REHABILLITATION PROGRAM. METHODS OR INTERVENTIONS TO AVOID COMPLIC ATIONS INCLUDE: - Deep Vein Thrombosis (DVT) Prophylaxis therapy for prevention . Sequential Compression Device (SCD). TE D Hose. - Infection Clinical staff to assess and manage the signs and symptoms of infection including fever, redness, war mth, etc. - Urinary Tract Infection - Falls Patient will be evaluated for Fall Precautions and will be placed on Fall Precautions as indicated pe r protocol. - Skin Breakdown Nursing will assess skin daily using assessment tool and will place on Skin Breakdown Precautions as indicated per protocol. - Pain Clinical staff may employ non-medication methods such as massage, distraction, decrease stimulus, etc . as needed. Clinical staff will assess patient's pain level every shift per protocol to assess and e nsure pain management effectiveness. Medications will be given and the pain level re-assessed. PRELIMINARY PLAN OF CARE: - Physical Therapy Patient needs Physical Therapy for a daily minimum of 1.5 hours at least 5 out of 7 days, to improve: Mobility, Strengthening, Transfers, Stretching, ROM, Endurance, Ability to manage stairs, Gait, and Balance. - Speech Therapy Patient needs Speech Therapy for a daily minimum of 0.5 hours at least 5 out of 7 days, to improve: S wallowing, Cognition, Language Skills, and Compensatory Strategies. - Rehabilitation Nursing Patient requires 24x7 Rehabilitation Nursing for: Pain Issues, Identifying and preventing risk factor s, Monitoring and reporting current medical conditions, Assisting with ambulation and transfer, Kobi ting with all ADL-s, Teaching patients about disease process and medications, Family teaching, Provid ing safe environment, Bowel and Bladder Issues, Skin Integrity, and Medication Management. Patient needs Sheet Metal Operator and/or Case Management for: Discharge Planning, Arranging Home Equipmen t or Services, and Family Interventions. - Dietary and Nutrition Services Patient needs Dietary and Nutrition Services for: Adequate Nutrition, Nutritional Supplements, and Nu tritional Education. - Occupational Therapy Patient needs Occupational Therapy for a daily minimum of 1.5 hours at least 5 out of 7 days, to impr ove Activities of Daily Living, including: Eating, Grooming, Bathing, Dressing, Toileting, Toilet Tra nsfers, Community Reintegration, Higher functional activities, Adaptive Equipment, Splinting, Househo ld Tasks, and Other activities as determined. QI SCORES: - Self-Care A. Eating 06-Independent B. Oral hygiene 03-Partial/moderate assistance C. Toileting hygiene 02-Substantial/maximal assistance E. Shower/bathe self 02-Substantial/maximal assistance F. Upper body dressing 03-Partial/moderate assistance G. Lower body dressing 02-Substantial/maximal assistance H. Putting on/taking off footwear 88-Not attempted due to medical condition or safety concerns - Mobility A. Roll left and right 03-Partial/moderate assistance B. Sit to lying 03-Partial/moderate assistance C. Lying to sitting on side of bed 03-Partial/moderate assistance D. Sit to stand 03-Partial/moderate assistance E. Chair/pcy-md-vagvq transfer 03-Partial/moderate assistance F. Toilet transfer 02-Substantial/maximal assistance G. Car transfer 88-Not attempted due to medical condition or safety concerns I. Walk 10 feet 03-Partial/moderate assistance J. Walk 50 feet with two turns 88-Not attempted due to medical condition or safety concerns K. Walk 150 feet 88-Not attempted due to medical condition or safety concerns L. Walking 10 feet on uneven surfaces 88-Not attempted due to medical condition or safety concerns M. 1 step (curb) 88-Not attempted due to medical condition or safety concerns N. 4 steps 88-Not attempted due to medical condition or safety concerns O. 12 steps 88-Not attempted due to medical condition or safety concerns P. Picking up object 88-Not attempted due to medical condition or safety concerns R. Wheel 50 feet with two turns 88-Not attempted due to medical condition or safety concerns S. Wheel 150 feet - Bladder and Bowel Bladder continence Bowel continence - Endurance Fair - Balance Fair - Safety Awareness Fair POTENTIAL FUNCTIONAL GOALS FOR PATIENT TO ACHIEVE BY DISCHARGE: - Safety Precaution Patient will remain free from falls or injury at time of discharge. - Bed Mobility Patient will perform bed mobility at 4-Gordon level of assistance. - Transfers Patient will complete transfers from bed to chair at 4-Gordon level of assistance. - Mobility Patient will ambulate 150 ft with 4-Gordon level of assistance with RW. PATIENT REHAB POTENTIAL Cici ALLEN is able and expected to receive 3 hours of individualized therapy daily on at least 5 of ethan 7 days Cici ALLEN's prognosis for significant practical improvement within a reasonable period of time appear s Good Expected level of measurable improvement will be of a practical value to Cici ALLEN's functional capac ity or adaptations to impairments Has a viable Discharge Plan Medically appropriate; condition is sufficiently stable to participate in intensive rehab program DISCHARGE PLAN: - Estimated Length of Stay (days) 12. - Consensus on plan Discharge plan has been discussed with primary caregiver. Patient/Family is in agreement with the fatmata n. Primary caregiver is in agreement with the plan. - Patient/Family Goals Return home independently. - Planned Living Setting Upon Discharge Home, to live with Family/Relatives. Transitional Living. CONCLUSION ON REHABILITATION NECESSITY: I have evaluated patient's pre-admission functional status and, comparing it to the patient's post-ad mission functional status now, I conclude that the pre-admission assessment was accurate. Patient's c ondition on admission supports the medical necessity of admission to IRF. It is safe to proceed with patient's therapy program. 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
[2021-04-30] MEDS: MONTELUKAST 10 MG TAB PO SCH (20:43)
[2021-04-30] MEDS: ROPINIROLE HCL 1 MG TAB PO SCH (20:43)
[2021-04-30] MEDS: APIXABAN 2.5 MG TABLET PO SCH (20:43)
[2021-04-30] MEDS: ESTROGENS,CONJ VAG CREAM VAG SCH (21:00)
[2021-04-30] MEDS: LOVASTATIN 20 MG PO SCH (21:00)
[2021-05-01] MEDS: AMLODIPINE 2.5 MG TAB PO SCH (04:28)
[2021-05-01] MEDS: CETIRIZINE HCL 5 MG TABLET PO PRN ×2 (04:41→20:58)
[2021-05-01] MEDS: APIXABAN 2.5 MG TABLET PO SCH ×4 (09:00→21:00)
[2021-05-01] MEDS: MAGNESIUM OXIDE 400 MG TAB PO SCH ×2 (09:00→20:59)
[2021-05-01] MEDS: PROPRANOLOL HCL 60 MG SA CAP PO SCH (09:00)
[2021-05-01] MEDS: FLUTICASONE 50MCG NASAL SPRAY NAS SCH (09:00)
[2021-05-01] MEDS: FLUOXETINE 20 MG CAP PO SCH (09:11)
[2021-05-01] MEDS: cloNIDine HCL 0.1 MG TAB PO SCH ×3 (09:11→20:58)
[2021-05-01] MEDS: lisinopriL 20 MG TAB PO SCH (09:11)
[2021-05-01] MEDS: VITAMIN B COMPLEX 1 CAP PO SCH (09:11)
[2021-05-01] MEDS: DOCOSAHEXANOIC AC/EPA 1000 MG PO SCH (09:11)
[2021-05-01] MEDS: VITAMIN D 1000 UNIT TAB PO SCH (09:12)
[2021-05-01] MEDS: CLOPIDOGREL 75 MG TABLET PO SCH (09:12)
[2021-05-01] MEDS: INSULIN -REGULAR HUMAN 50 UNIT/0.5 ML ML SQ SCH ×4 (09:13→21:00)
[2021-05-01] MEDS: FOLIC ACID 1 MG TABLET PO SCH (09:13)
[2021-05-01] MEDS: PANTOPRAZOLE 40MG TABLET PO SCH (09:13)
[2021-05-01] MEDS: TRAMADOL HCL 50 MG TAB PO PRN (11:04)
[2021-05-01] MEDS: INSULIN 70/30 100 UNITS/ML SQ SCH ×2 (11:54→16:49)
[2021-05-01] MEDS: TIZANIDINE 4 MG TABLET PO PRN (12:04)
[2021-05-01] MEDS: DICLOFENAC SODIUM 1% TOP PRN (16:11)
[2021-05-01 16:54] LABS: Urine Appearance CLEAR (Clear); Urine Blood NEGATIVE (Negative); Urine Color DK YELLOW (Yellow); Urine Glucose NEGATIVE (Negative); Urine Protein NEGATIVE (Negative); Urine pH 6.5 (5.0-7.0)
[2021-05-01 17:21] LABS: Urine Bilirubin NEGATIVE (Negative)
[2021-05-01 17:36] LABS: Urine Bacteria <20 /HPF (<20); Urine RBC <5 /HPF (NONE SEEN)
[2021-05-01] MEDS: ROPINIROLE HCL 1 MG TAB PO SCH (20:58)
[2021-05-01] MEDS: MONTELUKAST 10 MG TAB PO SCH (20:58)
[2021-05-01] MEDS: LOVASTATIN 20 MG PO SCH (20:59)
[2021-05-01] MEDS: ESTROGENS,CONJ VAG CREAM VAG SCH (21:00)
[2021-05-01] MEDS: JUVEN PACKET PO SCH (21:00)
[2021-05-02] MEDS: DICLOFENAC SODIUM 1% TOP PRN ×2 (00:57→15:34)
[2021-05-02] MEDS: TIZANIDINE 4 MG TABLET PO PRN ×2 (03:15→21:01)
[2021-05-02] MEDS: INSULIN -REGULAR HUMAN 50 UNIT/0.5 ML ML SQ SCH ×4 (07:30→21:01)
[2021-05-02] MEDS: INSULIN 70/30 100 UNITS/ML SQ SCH ×3 (08:00→17:00)
[2021-05-02] MEDS: FLUTICASONE 50MCG NASAL SPRAY NAS SCH (09:00)
[2021-05-02] MEDS: MAGNESIUM OXIDE 400 MG TAB PO SCH ×2 (09:00→21:01)
[2021-05-02] MEDS: APIXABAN 2.5 MG TABLET PO SCH ×2 (09:00→20:56)
[2021-05-02] MEDS: JUVEN PACKET PO SCH ×2 (09:00→21:00)
[2021-05-02] MEDS: PROPRANOLOL HCL 60 MG SA CAP PO SCH (09:00)
[2021-05-02] MEDS: lisinopriL 20 MG TAB PO SCH (10:07)
[2021-05-02] MEDS: VITAMIN B COMPLEX 1 CAP PO SCH (10:07)
[2021-05-02] MEDS: AMLODIPINE 2.5 MG TAB PO SCH (10:08)
[2021-05-02] MEDS: FOLIC ACID 1 MG TABLET PO SCH (10:08)
[2021-05-02] MEDS: FLUOXETINE 20 MG CAP PO SCH (10:08)
[2021-05-02] MEDS: DOCOSAHEXANOIC AC/EPA 1000 MG PO SCH (10:08)
[2021-05-02] MEDS: cloNIDine HCL 0.1 MG TAB PO SCH ×3 (10:09→21:02)
[2021-05-02] MEDS: CLOPIDOGREL 75 MG TABLET PO SCH (10:09)
[2021-05-02] MEDS: VITAMIN D 1000 UNIT TAB PO SCH (10:09)
[2021-05-02] MEDS: PANTOPRAZOLE 40MG TABLET PO SCH (10:11)
--- NOTE | 2021-05-02 18:02 | R.PN ---
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 Pt denied any Shortness of Breath. CBC with differential is normal. Na 135, glucose 73 to 250, prealbumin 9.3. Covid-19 testing is positive x 2. Ambulated 675' with contact guard assistance using a rolling walker. Self-propelled wheelchair 750' w ith contact guard assistance. [place] collar is in place. VITAL SIGNS Temperature: 97.6 F SBP/DBP: 174/64 Pulse: 64 Resp: 16 MEDICATION ALLERGIES: No Known Drug Allergies (NKDA) ENVIRONMENTAL ALLERGIES: - Substance Allergies None Known - Other Allergies None Known NURSING: - Shower allowing shower - Skin care per protocol PRECAUTIONS: - Weight Bearing Precaution NO LIFTING GREATER THAN 5 LBS ACTIVITIES OOB only with supervision THERAPIES: - Orthotics/Prosthetics Orthotic Evaluation. Splinting/Casting. Evaluate and Treat. - Dietary and Nutrition Adequate Nutrition. Nutritional Education. Evaluate and Treat. Nutritional Supplements. - Occupational Therapy Cognitive Retraining. Safety Awareness. Visual Perceptual Training. Patient/Family Education. Evaluat e and Treat. Transfer Training. Household Tasks. Adaptive Equipment. - Speech Therapy Cognitive Training. Expressive Language Skills. Memory Strategies. Receptive Language Skills. Speech Intelligibility Training. Evaluate and Treat. - Physical Therapy Mobility Training. Safety Awareness. Gait Training. Transfer Training. Balance Training. Evaluate and Treat. Patient/Family Education. PHYSICAL EXAM - Gen Alert and awake Lying in bed No apparent distress Oriented to: person, time, and place - Skin No skin breakdown. Normacephalic - Eyes No abnormalities - ENMT No abnormalities - Neck [place] J cervical collar is in place - CVS RRR - Chest No abnormalities - Abd Soft - GI Non distended Deferred - No abnormalities - Ext Mild bilateral lower extremity edema. - MSK 4+/5 weakness in both lower extremities. - Neuro No focal deficits ASSESSMENT: Pt. is a 76 yo Right-handed female.On 04/25/2021 she was admitted to [facility] with diagnosis Cl osed Fracture of Transverse Process of [place].Her impairment category is Orthopaedic Disorders 08 - Ot her Orthopaedic (08.9).Pre-morbidly, Pt. was independent/mod-I in Locomotion, Safety Awareness, Socia l Cognition, and Balance; and she had good Transfers Control, Sphincter Control, Self-Care, Communica tion, and Endurance.Currently, she has deficits of Locomotion, Safety Awareness, Social Cognition, Ba brianda, Transfers Control, Sphincter Control, Self-Care, Communication, and Endurance.Pt. is now refer red to [facility] for acute in-patient rehabilitation in order to maximize pat ciarra's functional independence in activities of daily living, strength, ROM, and mobility.- Rehab Goa l Patient has realistic goal of being discharged at assistance level 7-Ind to reside at Home with Fami ly/Relatives. MDM/PLAN: - Physical Therapy Decreased range of motion - to improve, our physical therapists will perform initial evaluation of p t's status upon admission and devise an individualized program for increasing patient's Range of Fredrick on. Gait dysfunction - to improve, our physical therapists will perform initial evaluation of pt's statu s upon admission and devise an individualized program for Gait Training, and Wheel Chair mobility Inability to transfer - to improve, our physical therapists will perform initial evaluation of pt's status upon admission and devise an individualized program for Bed mobility Need for home safety evaluation - to improve, our physical therapists will perform initial evaluatio n of pt's status upon admission and devise an individualized program for Home Evaluation Need in caregiver upon discharge - to improve, our physical therapists will perform initial evaluati on of pt's status upon admission and devise an individualized program for Caregiver Training New precaution - to improve, our physical therapists will perform initial evaluation of pt's status upon admission and devise an individualized program for Patient precaution education Edema - to improve, our physical therapists will perform initial evaluation of pt's status upon admis jaison and devise an individualized program for Elevation Training, and Lymphedema Therapy Poor balance - to improve, our physical therapists will perform initial evaluation of pt's status up on admission and devise an individualized program for Balance Training Poor endurance - to improve, our physical therapists will perform initial evaluation of pt's status upon admission and devise an individualized program for Endurance Training Weakness - to improve, our physical therapists will perform initial evaluation of pt's status upon a dmission and devise an individualized program for Aquatic Therapy, Neuromuscular Reeducation, and Str engthening Achieving independence - to improve, our physical therapists will perform initial evaluation of pt's status upon admission and devise an individualized program for Community Reintegration Activities - Occupational Therapy ADL deficits - to improve, our occupation therapists will perform initial evaluation of pt's status upon admission and devise an individualized program for Bathing, Bed mobility, Community Reintegratio n, Cooking, Dressing, Eating, Fine Motor Skills, Grooming, Homemaking, Kitchen Mobility, Laundry, Pat ient Education, Safety Awareness, Splinting - Positioning, Transfers(Toilet, Tub, Shower), and Wheel Chair Management Cognitive deficits - to improve, our occupation therapists will perform initial evaluation of pt's s tatus upon admission and devise an individualized program for Cognition - orientation Need for primary health care nurse - to improve, our occupation therapists will perform initial evaluation of pt's status upon admission and devise an individualized program for Caregiver Training Weakness - to improve, our occupation therapists will perform initial evaluation of pt's status upon admission and devise an individualized program for Aquatic Therapy, Balance, Endurance, UE ROM, and UE strengthening - Other See attached MAR (Medication Administration Record) - Diet Type Continue Regular - Diet - Liquid Texture Continue Regular - Tube Feed Continue N/A - Weight Bearing Precaution NO LIFTING GREATER THAN 5 LBS - Skin care per protocol - Diet - Solid Texture Continue Regular - Shower allowing shower FUNCTIONAL STATUS: UPDATED AT WEEKLY TEAM CONFERENCE - Bladder Same accident frequency: 7-Ind - No accidents in the past 7 days - Bowel Same accident frequency: 7-Ind - No accidents in the past 7 days - Walking Same score based on distance walked: 0(N/A) Same score based on distance walked: 1(<=50ft) - Wheelchair Same score based on distance traveled: 0(N/A) FUNCTIONAL STATUS: - Self-Care A. Eating Ind B. Grooming Bubba C. Bathing sup D. Dressing - Upper Bubba E. Dressing - Lower sup F. Toileting sup - Sphincter Control G. Bladder control sup H. Bowel control sup - Transfers Control I. Bed/Chair/Wheelchair Gordon J. Toilet Gordon K. Tub/Shower Gordon - Locomotion L. Walk/Wheelchair (B) Gordon M. Stairs modA - Communication N. Comprehension (B) Bubba O. Expression (B) Bubba - Social Cognition P. Social Interaction Ind Q. Problem Solving Bubba R. Memory Bubba - Endurance Good - Balance Fair - Safety Awareness Fair QI SCORES: - Self-Care A. Eating 06-Independent B. Oral hygiene 03-Partial/moderate assistance C. Toileting hygiene 02-Substantial/maximal assistance E. Shower/bathe self 02-Substantial/maximal assistance F. Upper body dressing 03-Partial/moderate assistance G. Lower body dressing 02-Substantial/maximal assistance H. Putting on/taking off footwear 88-Not attempted due to medical condition or safety concerns - Mobility A. Roll left and right 03-Partial/moderate assistance B. Sit to lying 03-Partial/moderate assistance C. Lying to sitting on side of bed 03-Partial/moderate assistance D. Sit to stand 03-Partial/moderate assistance E. Chair/sep-ag-yolra transfer 03-Partial/moderate assistance F. Toilet transfer 02-Substantial/maximal assistance G. Car transfer 88-Not attempted due to medical condition or safety concerns I. Walk 10 feet 03-Partial/moderate assistance J. Walk 50 feet with two turns 88-Not attempted due to medical condition or safety concerns K. Walk 150 feet 88-Not attempted due to medical condition or safety concerns L. Walking 10 feet on uneven surfaces 88-Not attempted due to medical condition or safety concerns M. 1 step (curb) 88-Not attempted due to medical condition or safety concerns N. 4 steps 88-Not attempted due to medical condition or safety concerns O. 12 steps 88-Not attempted due to medical condition or safety concerns P. Picking up object 88-Not attempted due to medical condition or safety concerns R. Wheel 50 feet with two turns 88-Not attempted due to medical condition or safety concerns S. Wheel 150 feet - Bladder and Bowel Bladder continence Bowel continence - Endurance Fair - Balance Fair - Safety Awareness Fair CURRENT FUNC. DEFICITS: Mobility, Endurance, Balance, Safety Awareness, and Self-Care SIGNATURE PANEL: (TERADATA ARCHITECT)
[2021-05-02] MEDS: ESTROGENS,CONJ VAG CREAM VAG SCH (21:00)
[2021-05-02] MEDS: LOVASTATIN 20 MG PO SCH (21:00)
[2021-05-02] MEDS: MONTELUKAST 10 MG TAB PO SCH (21:02)
[2021-05-02] MEDS: CETIRIZINE HCL 5 MG TABLET PO PRN (21:02)
[2021-05-02] MEDS: ROPINIROLE HCL 1 MG TAB PO SCH (21:02)
[2021-05-03] MEDS: HYDROCODONE/APAP 5/325 MG TAB PO PRN (00:08)
[2021-05-03] MEDS: INSULIN -REGULAR HUMAN 50 UNIT/0.5 ML ML SQ SCH ×4 (07:30→21:00)
[2021-05-03] MEDS: JUVEN PACKET PO SCH ×2 (09:00→21:00)
[2021-05-03] MEDS: PROPRANOLOL HCL 60 MG SA CAP PO SCH (09:56)
[2021-05-03] MEDS: PANTOPRAZOLE 40MG TABLET PO SCH (09:57)
[2021-05-03] MEDS: VITAMIN D 1000 UNIT TAB PO SCH (09:57)
[2021-05-03] MEDS: VITAMIN B COMPLEX 1 CAP PO SCH (09:57)
[2021-05-03] MEDS: MAGNESIUM OXIDE 400 MG TAB PO SCH ×2 (09:57→21:00)
[2021-05-03] MEDS: FOLIC ACID 1 MG TABLET PO SCH (09:58)
[2021-05-03] MEDS: APIXABAN 2.5 MG TABLET PO SCH ×2 (09:58→21:46)
[2021-05-03] MEDS: DOCOSAHEXANOIC AC/EPA 1000 MG PO SCH (09:58)
[2021-05-03] MEDS: CLOPIDOGREL 75 MG TABLET PO SCH (09:58)
[2021-05-03] MEDS: cloNIDine HCL 0.1 MG TAB PO SCH ×3 (09:58→21:46)
[2021-05-03] MEDS: FLUOXETINE 20 MG CAP PO SCH (09:59)
[2021-05-03] MEDS: AMLODIPINE 2.5 MG TAB PO SCH (09:59)
[2021-05-03] MEDS: lisinopriL 20 MG TAB PO SCH (09:59)
[2021-05-03] MEDS: INSULIN 70/30 100 UNITS/ML SQ SCH ×3 (10:00→17:00)
[2021-05-03] MEDS: FLUTICASONE 50MCG NASAL SPRAY NAS SCH (10:01)
[2021-05-03] MEDS: DICLOFENAC SODIUM 1% TOP PRN (12:30)
[2021-05-03] MEDS: LOVASTATIN 20 MG PO SCH (21:00)
[2021-05-03] MEDS: ESTROGENS,CONJ VAG CREAM VAG SCH (21:00)
[2021-05-03] MEDS: ROPINIROLE HCL 1 MG TAB PO SCH (21:46)
[2021-05-03] MEDS: GABAPENTIN 100 MG CAP PO SCH (21:46)
[2021-05-03] MEDS: MONTELUKAST 10 MG TAB PO SCH (21:46)
[2021-05-04] MEDS: PANTOPRAZOLE 40MG TABLET PO SCH (06:17)
[2021-05-04] MEDS: INSULIN -REGULAR HUMAN 50 UNIT/0.5 ML ML SQ SCH ×4 (07:30→20:58)
[2021-05-04] MEDS: MAGNESIUM OXIDE 400 MG TAB PO SCH ×2 (09:00→20:57)
[2021-05-04] MEDS: JUVEN PACKET PO SCH ×2 (09:00→20:57)
[2021-05-04] MEDS: VITAMIN D 1000 UNIT TAB PO SCH (10:25)
[2021-05-04] MEDS: APIXABAN 2.5 MG TABLET PO SCH ×2 (10:25→20:56)
[2021-05-04] MEDS: VITAMIN B COMPLEX 1 CAP PO SCH (10:25)
[2021-05-04] MEDS: cloNIDine HCL 0.1 MG TAB PO SCH ×3 (10:25→20:56)
[2021-05-04] MEDS: FLUOXETINE 20 MG CAP PO SCH (10:25)
[2021-05-04] MEDS: GABAPENTIN 100 MG CAP PO SCH ×2 (10:26→20:56)
[2021-05-04] MEDS: FOLIC ACID 1 MG TABLET PO SCH (10:26)
[2021-05-04] MEDS: HYDROCODONE/APAP 5/325 MG TAB PO PRN (10:26)
[2021-05-04] MEDS: AMLODIPINE 2.5 MG TAB PO SCH (10:27)
[2021-05-04] MEDS: CLOPIDOGREL 75 MG TABLET PO SCH (10:27)
[2021-05-04] MEDS: lisinopriL 20 MG TAB PO SCH (10:27)
[2021-05-04] MEDS: INSULIN 70/30 100 UNITS/ML SQ SCH ×3 (10:28→17:29)
[2021-05-04] MEDS: DOCOSAHEXANOIC AC/EPA 1000 MG PO SCH (10:28)
[2021-05-04] MEDS: PROPRANOLOL HCL 60 MG SA CAP PO SCH (10:28)
[2021-05-04] MEDS: FLUTICASONE 50MCG NASAL SPRAY NAS SCH (10:39)
[2021-05-04 15:26] VITALS: BMI 36.8
--- NOTE | 2021-05-04 19:34 | R.PN ---
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 Pt denied any Shortness of Breath. CBC with differential is normal. Na 135, glucose 149 to 170, prealbumin 9.3. Covid-19 testing is positive x 2. Last test date 04-30-21. Ambulated 1400'' with contact guard assistance using a rolling walker. [place] J collar is in place. She reports mild to moderate left more than right ear and jaw pain while wearing the [place] J collar. Gabapentin 100 mg bid for trigeminal neuralgia. Consult Dr. Luciano to treat ingrown toenail. VITAL SIGNS Temperature: 97.4 F SBP/DBP: 109/51 Pulse: 59 Resp: 16 MEDICATION ALLERGIES: No Known Drug Allergies (NKDA) ENVIRONMENTAL ALLERGIES: - Substance Allergies None Known - Other Allergies None Known NURSING: - Shower allowing shower - Skin care per protocol PRECAUTIONS: - Weight Bearing Precaution NO LIFTING GREATER THAN 5 LBS ACTIVITIES OOB only with supervision THERAPIES: - Orthotics/Prosthetics Orthotic Evaluation. Splinting/Casting. Evaluate and Treat. - Dietary and Nutrition Adequate Nutrition. Nutritional Education. Evaluate and Treat. Nutritional Supplements. - Occupational Therapy Cognitive Retraining. Safety Awareness. Visual Perceptual Training. Patient/Family Education. Evaluat e and Treat. Transfer Training. Household Tasks. Adaptive Equipment. - Speech Therapy Cognitive Training. Expressive Language Skills. Memory Strategies. Receptive Language Skills. Speech Intelligibility Training. Evaluate and Treat. - Physical Therapy Mobility Training. Safety Awareness. Gait Training. Transfer Training. Balance Training. Evaluate and Treat. Patient/Family Education. PHYSICAL EXAM - Gen Alert and awake Lying in bed No apparent distress Oriented to: person, time, and place - Skin No skin breakdown. Normacephalic - Eyes No abnormalities - ENMT No abnormalities - Neck [place] J cervical collar is in place - CVS RRR - Chest No abnormalities - Abd Soft - GI Non distended Deferred - No abnormalities - Ext Mild bilateral lower extremity edema. - MSK 4+/5 weakness in both lower extremities. - Neuro No focal deficits ASSESSMENT: Pt. is a 76 yo Right-handed female.On 04/25/2021 she was admitted to [facility] with diagnosis Cl osed Fracture of Transverse Process of [place].Her impairment category is Orthopaedic Disorders 08 - Ot her Orthopaedic (08.9).Pre-morbidly, Pt. was independent/mod-I in Locomotion, Safety Awareness, Socia l Cognition, and Balance; and she had good Transfers Control, Sphincter Control, Self-Care, Communica tion, and Endurance.Currently, she has deficits of Locomotion, Safety Awareness, Social Cognition, Ba brianda, Transfers Control, Sphincter Control, Self-Care, Communication, and Endurance.Pt. is now refer red to [facility] for acute in-patient rehabilitation in order to maximize pat iejen's functional independence in activities of daily living, strength, ROM, and mobility.- Rehab Goa l Patient has realistic goal of being discharged at assistance level 7-Ind to reside at Home with Fami ly/Relatives. MDM/PLAN: - Physical Therapy Decreased range of motion - to improve, our physical therapists will perform initial evaluation of p t's status upon admission and devise an individualized program for increasing patient's Range of [place]rick on. Gait dysfunction - to improve, our physical therapists will perform initial evaluation of pt's statu s upon admission and devise an individualized program for Gait Training, and Wheel Chair mobility Inability to transfer - to improve, our physical therapists will perform initial evaluation of pt's status upon admission and devise an individualized program for Bed mobility Need for home safety evaluation - to improve, our physical therapists will perform initial evaluatio n of pt's status upon admission and devise an individualized program for Home Evaluation Need in caregiver upon discharge - to improve, our physical therapists will perform initial evaluati on of pt's status upon admission and devise an individualized program for Caregiver Training New precaution - to improve, our physical therapists will perform initial evaluation of pt's status upon admission and devise an individualized program for Patient precaution education Edema - to improve, our physical therapists will perform initial evaluation of pt's status upon admi ssion and devise an individualized program for Elevation Training, and Lymphedema Therapy Poor balance - to improve, our physical therapists will perform initial evaluation of pt's status up on admission and devise an individualized program for Balance Training Poor endurance - to improve, our physical therapists will perform initial evaluation of pt's status upon admission and devise an individualized program for Endurance Training Weakness - to improve, our physical therapists will perform initial evaluation of pt's status upon a dmission and devise an individualized program for Aquatic Therapy, Neuromuscular Reeducation, and Str engthening Achieving independence - to improve, our physical therapists will perform initial evaluation of pt's status upon admission and devise an individualized program for Community Reintegration Activities - Occupational Therapy ADL deficits - to improve, our occupation therapists will perform initial evaluation of pt's status upon admission and devise an individualized program for Bathing, Bed mobility, Community Reintegratio n, Cooking, Dressing, Eating, Fine Motor Skills, Grooming, Homemaking, Kitchen Mobility, Laundry, Pat ient Education, Safety Awareness, Splinting - Positioning, Transfers(Toilet, Tub, Shower), and Wheel Chair Management Cognitive deficits - to improve, our occupation therapists will perform initial evaluation of pt's s tatus upon admission and devise an individualized program for Cognition - orientation Need for care taker - to improve, our occupation therapists will perform initial evaluation of pt's status upon admission and devise an individualized program for Caregiver Training Weakness - to improve, our occupation therapists will perform initial evaluation of pt's status upon admission and devise an individualized program for Aquatic Therapy, Balance, Endurance, UE ROM, and UE strengthening - Other See attached MAR (Medication Administration Record) - Diet Type Continue Regular - Diet - Liquid Texture Continue Regular - Tube Feed Continue N/A - Weight Bearing Precaution NO LIFTING GREATER THAN 5 LBS - Skin care per protocol - Diet - Solid Texture Continue Regular - Shower allowing shower FUNCTIONAL STATUS: UPDATED AT WEEKLY TEAM CONFERENCE - Bladder Same accident frequency: 7-Ind - No accidents in the past 7 days - Bowel Same accident frequency: 7-Ind - No accidents in the past 7 days - Walking Same score based on distance walked: 0(N/A) Same score based on distance walked: 1(<=50ft) - Wheelchair Same score based on distance traveled: 0(N/A) FUNCTIONAL STATUS: - Self-Care A. Eating Ind B. Grooming Bubba C. Bathing sup D. Dressing - Upper Bubba E. Dressing - Lower sup F. Toileting sup - Sphincter Control G. Bladder control sup H. Bowel control sup - Transfers Control I. Bed/Chair/Wheelchair Gordon J. Toilet Gordon K. Tub/Shower Gordon - Locomotion L. Walk/Wheelchair (B) Gordon M. Stairs modA - Communication N. Comprehension (B) Bubba O. Expression (B) Bubab - Social Cognition P. Social Interaction Ind Q. Problem Solving Bubba R. Memory Bubba - Endurance Good - Balance Fair - Safety Awareness Fair QI SCORES: - Self-Care A. Eating 06-Independent B. Oral hygiene 03-Partial/moderate assistance C. Toileting hygiene 02-Substantial/maximal assistance E. Shower/bathe self 02-Substantial/maximal assistance F. Upper body dressing 03-Partial/moderate assistance G. Lower body dressing 02-Substantial/maximal assistance H. Putting on/taking off footwear 88-Not attempted due to medical condition or safety concerns - Mobility A. Roll left and right 03-Partial/moderate assistance B. Sit to lying 03-Partial/moderate assistance C. Lying to sitting on side of bed 03-Partial/moderate assistance D. Sit to stand 03-Partial/moderate assistance E. Chair/[id number] transfer 03-Partial/moderate assistance F. Toilet transfer 02-Substantial/maximal assistance G. Car transfer 88-Not attempted due to medical condition or safety concerns I. Walk 10 feet 03-Partial/moderate assistance J. Walk 50 feet with two turns 88-Not attempted due to medical condition or safety concerns K. Walk 150 feet 88-Not attempted due to medical condition or safety concerns L. Walking 10 feet on uneven surfaces 88-Not attempted due to medical condition or safety concerns M. 1 step (curb) 88-Not attempted due to medical condition or safety concerns N. 4 steps 88-Not attempted due to medical condition or safety concerns O. 12 steps 88-Not attempted due to medical condition or safety concerns P. Picking up object 88-Not attempted due to medical condition or safety concerns R. Wheel 50 feet with two turns 88-Not attempted due to medical condition or safety concerns S. Wheel 150 feet - Bladder and Bowel Bladder continence Bowel continence - Endurance Fair - Balance Fair - Safety Awareness Fair CURRENT FUNC. DEFICITS: Mobility, Endurance, Balance, Safety Awareness, and Self-Care SIGNATURE PANEL: ([facility])
[2021-05-04] MEDS: ROPINIROLE HCL 1 MG TAB PO SCH (20:56)
[2021-05-04] MEDS: LOVASTATIN 20 MG PO SCH (20:57)
[2021-05-04] MEDS: MONTELUKAST 10 MG TAB PO SCH (21:00)
[2021-05-04] MEDS: ESTROGENS,CONJ VAG CREAM VAG SCH (21:00)
[2021-05-05] MEDS: INSULIN -REGULAR HUMAN 50 UNIT/0.5 ML ML SQ SCH ×4 (07:30→21:00)
[2021-05-05] MEDS: INSULIN 70/30 100 UNITS/ML SQ SCH ×3 (08:00→17:00)
--- NOTE | 2021-05-05 08:01 | P.CNS ---
Date of Consult: 05/05/21 Requesting Physician: Sam Stephens Chief Complaint: Painful toenails Allergies cyclosporine Allergy (Mild, Verified 02/05/12 13:59) Hives/Rash Penicillins Allergy (Mild, Verified 02/05/12 13:59) Hives/Rash cephalexin monohydrate [From Keflex] Adverse Reaction (Mild, Verified 02/05/12 13:59) Nausea/Vomiting plastic tape Adverse Reaction (Mild, Uncoded 02/05/12 13:59) Skin redness/irritation Home Medications: Fluoxetine HCl [Prozac] 40 mg PO DAILY 02/05/12 Lisinopril 40 mg PO DAILY 02/05/12 Lovastatin [Mevacor*] 20 mg PO BEDTIME 02/05/12 Ropinirole HCl [Requip] 2 mg PO DAILY 02/05/12 Tramadol HCl [Ultram] 50 mg PO Q8HP 02/05/12 Albuterol Inhaler [Ventolin Inhaler*] 2 puff IN Q6HP PRN 04/30/21 Budesonide/Formoterol Fumarate [Symbicort 160-4.5 Mcg Inhaler] 2 inh IN BIDP PRN 04/30/21 Cetirizine HCl [Zyrtec] 10 mg PO DAILY 04/30/21 Cholecalciferol (Vitamin D3) [Vitamin D3] 1 cap PO DAILY 04/30/21 Clonidine HCl 0.1 mg PO TID PRN MDD 3 04/30/21 Clopidogrel Bisulfate [Plavix] 75 mg PO DAILY 04/30/21 Diclofenac Sodium [Arthritis Pain] 100 gm TP TIDP PRN 04/30/21 Docusate [Colace Cap*] 100 mg PO DAILY 04/30/21 Estrogens,Conj Cream [Premarin 0.625MG/Gm] 1 appl VAG DAILY 04/30/21 Fluticasone Propionate [Flonase Allergy Relief] 2 sprays NS DAILY 04/30/21 Folic Acid 1 mg PO DAILY 04/30/21 Hydrocodone Bit/Acetaminophen [Hydrocodon-Acetaminophen 5-325] 5 - 325 mg PO Q6HP PRN 04/30/21 Insulin -Regular Human [Novolin -R*] See Protocol SQ ACHS 04/30/21 Insulin NPH Hum/Reg Insulin Hm [Novolin 70-30 100 Unit/ml Vial] 100 unit SQ AC 04/30/21 Magnesium Oxide [Mag 0X Tab] 800 mg PO BID 04/30/21 Methotrexate [Methotrexate*] 2.5 mg PO EVERY 7TH DAY 04/30/21 Montelukast [Singulair] 10 mg PO BEDTIME 04/30/21 [place]-3S/Dha/Epa/Fish Oil [[place]-3 Fish Oil 1,000 mg Sfgl] 1 each PO DAILY 04/30/21 Omeprazole [Prilosec] 40 mg PO BID 04/30/21 Semaglutide [Ozempic] 0.5 mg SQ EVERY 7TH DAY 04/30/21 Tizanidine HCl [Zanaflex] 2 mg PO Q8HP PRN 04/30/21 Vit B Complex 100 Combo No.2 [B-100 Complex] 100 mg PO DAILY 04/30/21 cloNIDine HCL [Clonidine HCl] 0.1 mg PO TIDP PRN MDD 3 04/30/21 - Past Medical/Surgical History Diabetic: Yes -: HTN -: DM -: DVT -: RA -: Parkinsons -: BPPV - Social History Smoking Status: Never smoker Alcohol use: Yes CD- Drugs: No Caffeine use: Yes Place of Residence: Home Review of Systems 10-point ROS is otherwise unremarkable Physical Examination Temp Pulse Resp BP Pulse Ox 96 F L 60 19 130/70 99 05/04/21 23:55 05/04/21 23:55 05/04/21 23:55 05/04/21 23:55 05/04/21 23:55 General: Alert, In no apparent distress, Oriented x3 Cardiovascular: Edema, Abnormal pulses (1/4 dp, 0/4 pt pulses bilateral lower extremity) Capillary refill: <2 Seconds Musculoskeletal: No clubbing, No swelling, No contractures, No erythema, No tenderness, No warmth Integumentary: No rashes, No breakdown, No significant lesion, No tenderness/swelling, No erythema, No warmth, No cyanosis, Other (Thickened hypertrophic left 1, 4 right 4,5 digit nails with subungual debris. Elongated nails otherwise) Neurological: Sensation intact - Problems (1) Tinea unguium Current Visit: Yes Status: Acute (2) Type 2 diabetes mellitus with diabetic peripheral angiopathy without gangrene Current Visit: Yes Status: Acute Conclusions/Impression: Debridement of nails at bedside mechanically. PAtient notes improve pain relief after debridement Physician Review: Patient Assessed, Agree with Above Assessment and Plan Time Spent Managing Pts care (In Minutes): 30
[2021-05-05] MEDS: JUVEN PACKET PO SCH ×2 (09:00→21:00)
[2021-05-05] MEDS: MAGNESIUM OXIDE 400 MG TAB PO SCH ×2 (09:00→21:00)
[2021-05-05] MEDS: FLUTICASONE 50MCG NASAL SPRAY NAS SCH (09:00)
[2021-05-05] MEDS: PROPRANOLOL HCL 60 MG SA CAP PO SCH (09:29)
[2021-05-05] MEDS: AMLODIPINE 2.5 MG TAB PO SCH (09:37)
[2021-05-05] MEDS: DOCOSAHEXANOIC AC/EPA 1000 MG PO SCH (09:39)
[2021-05-05] MEDS: VITAMIN B COMPLEX 1 CAP PO SCH (09:39)
[2021-05-05] MEDS: VITAMIN D 1000 UNIT TAB PO SCH (09:40)
[2021-05-05] MEDS: PANTOPRAZOLE 40MG TABLET PO SCH (09:40)
[2021-05-05] MEDS: FLUOXETINE 20 MG CAP PO SCH (09:40)
[2021-05-05] MEDS: lisinopriL 20 MG TAB PO SCH (09:40)
[2021-05-05] MEDS: APIXABAN 2.5 MG TABLET PO SCH ×2 (09:41→21:00)
[2021-05-05] MEDS: GABAPENTIN 100 MG CAP PO SCH ×2 (09:41→21:49)
[2021-05-05] MEDS: FOLIC ACID 1 MG TABLET PO SCH (09:41)
[2021-05-05] MEDS: cloNIDine HCL 0.1 MG TAB PO SCH ×3 (09:41→21:49)
[2021-05-05] MEDS: CLOPIDOGREL 75 MG TABLET PO SCH (09:42)
[2021-05-05 16:14] LABS: Absolute Lymphocytes (CBC) 3.1 K/uL (0.7-4.9); Hematocrit 37.1 % (36.0-45.0); Lymphocytes % 25.1 % (15.3-44.8); MPV 7.1 fL (7.6-11.3)
[2021-05-05 16:38] LABS: Albumin 2.9 g/dL (3.4-5.0); Magnesium 2.3 mg/dL (1.8-2.4); Potassium 4.2 mmol/L (3.5-5.1); Prealbumin 15.1 mg/dL (20-40)
[2021-05-05] MEDS: HYDROCODONE/APAP 5/325 MG TAB PO PRN (17:15)
--- NOTE | 2021-05-05 17:50 | R.PN ---
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 Pt denied any Shortness of Breath. WBC increased to 12.3, neutrophils 66.9. Na 134, glucose 71 to 145, prealbumin 15.1. Covid-19 testing is positive x 2. Last test date 04-30-21. Ambulated 1100'' with contact guard assistance using a rolling walker. [place] J collar is in place. She reports mild to moderate left more than right ear and jaw pain while wearing the [place] J collar. Gabapentin 100 mg bid for trigeminal neuralgia. Thank you Dr. Luciano for help with ingrown toenail. Due to elevated WBC, chest-x-ray to rule out pneumonia. VITAL SIGNS Temperature: 97.7 F SBP/DBP: 136/64 Pulse: 58 Resp: 16 MEDICATION ALLERGIES: No Known Drug Allergies (NKDA) ENVIRONMENTAL ALLERGIES: - Substance Allergies None Known - Other Allergies None Known NURSING: - Shower allowing shower - Skin care per protocol PRECAUTIONS: - Weight Bearing Precaution NO LIFTING GREATER THAN 5 LBS ACTIVITIES OOB only with supervision THERAPIES: - Orthotics/Prosthetics Orthotic Evaluation. Splinting/Casting. Evaluate and Treat. - Dietary and Nutrition Adequate Nutrition. Nutritional Education. Evaluate and Treat. Nutritional Supplements. - Occupational Therapy Cognitive Retraining. Safety Awareness. Visual Perceptual Training. Patient/Family Education. Evaluat e and Treat. Transfer Training. Household Tasks. Adaptive Equipment. - Speech Therapy Cognitive Training. Expressive Language Skills. Memory Strategies. Receptive Language Skills. Speech Intelligibility Training. Evaluate and Treat. - Physical Therapy Mobility Training. Safety Awareness. Gait Training. Transfer Training. Balance Training. Evaluate and Treat. Patient/Family Education. PHYSICAL EXAM - Gen Alert and awake Lying in bed No apparent distress Oriented to: person, time, and place - Skin No skin breakdown. Normacephalic - Eyes No abnormalities - ENMT No abnormalities - Neck [place] J cervical collar is in place - CVS RRR - Chest No abnormalities - Abd Soft - GI Non distended Deferred - No abnormalities - Ext Mild bilateral lower extremity edema. - MSK 4+/5 weakness in both lower extremities. - Neuro No focal deficits ASSESSMENT: Pt. is a 76 yo Right-handed female.On 04/25/2021 she was admitted to [facility] with diagnosis Cl osed Fracture of Transverse Process of [place].Her impairment category is Orthopaedic Disorders 08 - Ot her Orthopaedic (08.9).Pre-morbidly, Pt. was independent/mod-I in Locomotion, Safety Awareness, Socia l Cognition, and Balance; and she had good Transfers Control, Sphincter Control, Self-Care, Communica tion, and Endurance.Currently, she has deficits of Locomotion, Safety Awareness, Social Cognition, Ba brianda, Transfers Control, Sphincter Control, Self-Care, Communication, and Endurance.Pt. is now refer red to [facility] for acute in-patient rehabilitation in order to maximize pat ciarra's functional independence in activities of daily living, strength, ROM, and mobility.- Rehab Goa l Patient has realistic goal of being discharged at assistance level 7-Ind to reside at Home with Fami ly/Relatives. MDM/PLAN: - Physical Therapy Decreased range of motion - to improve, our physical therapists will perform initial evaluation of p t's status upon admission and devise an individualized program for increasing patient's Range of [place] on. Gait dysfunction - to improve, our physical therapists will perform initial evaluation of pt's statu s upon admission and devise an individualized program for Gait Training, and Wheel Chair mobility Inability to transfer - to improve, our physical therapists will perform initial evaluation of pt's status upon admission and devise an individualized program for Bed mobility Need for home safety evaluation - to improve, our physical therapists will perform initial evaluatio n of pt's status upon admission and devise an individualized program for Home Evaluation Need in caregiver upon discharge - to improve, our physical therapists will perform initial evaluati on of pt's status upon admission and devise an individualized program for Caregiver Training New precaution - to improve, our physical therapists will perform initial evaluation of pt's status upon admission and devise an individualized program for Patient precaution education Edema - to improve, our physical therapists will perform initial evaluation of pt's status upon admi ssion and devise an individualized program for Elevation Training, and Lymphedema Therapy Poor balance - to improve, our physical therapists will perform initial evaluation of pt's status up on admission and devise an individualized program for Balance Training Poor endurance - to improve, our physical therapists will perform initial evaluation of pt's status upon admission and devise an individualized program for Endurance Training Weakness - to improve, our physical therapists will perform initial evaluation of pt's status upon a dmission and devise an individualized program for Aquatic Therapy, Neuromuscular Reeducation, and Str engthening Achieving independence - to improve, our physical therapists will perform initial evaluation of pt's status upon admission and devise an individualized program for Community Reintegration Activities - Occupational Therapy ADL deficits - to improve, our occupation therapists will perform initial evaluation of pt's status upon admission and devise an individualized program for Bathing, Bed mobility, Community Reintegratio n, Cooking, Dressing, Eating, Fine Motor Skills, Grooming, Homemaking, Kitchen Mobility, Laundry, Pat ient Education, Safety Awareness, Splinting - Positioning, Transfers(Toilet, Tub, Shower), and Wheel Chair Management Cognitive deficits - to improve, our occupation therapists will perform initial evaluation of pt's s tatus upon admission and devise an individualized program for Cognition - orientation Need for customer care voice consultant - to improve, our occupation therapists will perform initial evaluation of pt's status upon admission and devise an individualized program for Caregiver Training Weakness - to improve, our occupation therapists will perform initial evaluation of pt's status upon admission and devise an individualized program for Aquatic Therapy, Balance, Endurance, UE ROM, and UE strengthening - Other See attached MAR (Medication Administration Record) - Diet Type Continue Regular - Diet - Liquid Texture Continue Regular - Tube Feed Continue N/A - Weight Bearing Precaution NO LIFTING GREATER THAN 5 LBS - Skin care per protocol - Diet - Solid Texture Continue Regular - Shower allowing shower FUNCTIONAL STATUS: UPDATED AT WEEKLY TEAM CONFERENCE - Bladder Same accident frequency: 7-Ind - No accidents in the past 7 days - Bowel Same accident frequency: 7-Ind - No accidents in the past 7 days - Walking Same score based on distance walked: 0(N/A) Same score based on distance walked: 1(<=50ft) - Wheelchair Same score based on distance traveled: 0(N/A) FUNCTIONAL STATUS: - Self-Care A. Eating Ind B. Grooming Bubba C. Bathing sup D. Dressing - Upper Bubba E. Dressing - Lower sup F. Toileting sup - Sphincter Control G. Bladder control sup H. Bowel control sup - Transfers Control I. Bed/Chair/Wheelchair Gordon J. Toilet oGrdon K. Tub/Shower Gordon - Locomotion L. Walk/Wheelchair (B) Gordon M. Stairs modA - Communication N. Comprehension (B) Bubba O. Expression (B) Bubba - Social Cognition P. Social Interaction Ind Q. Problem Solving Bubba R. Memory Bubba - Endurance Good - Balance Fair - Safety Awareness Fair QI SCORES: - Self-Care A. Eating 06-Independent B. Oral hygiene 03-Partial/moderate assistance C. Toileting hygiene 02-Substantial/maximal assistance E. Shower/bathe self 02-Substantial/maximal assistance F. Upper body dressing 03-Partial/moderate assistance G. Lower body dressing 02-Substantial/maximal assistance H. Putting on/taking off footwear 88-Not attempted due to medical condition or safety concerns - Mobility A. Roll left and right 03-Partial/moderate assistance B. Sit to lying 03-Partial/moderate assistance C. Lying to sitting on side of bed 03-Partial/moderate assistance D. Sit to stand 03-Partial/moderate assistance E. Chair/[id number] transfer 03-Partial/moderate assistance F. Toilet transfer 02-Substantial/maximal assistance G. Car transfer 88-Not attempted due to medical condition or safety concerns I. Walk 10 feet 03-Partial/moderate assistance J. Walk 50 feet with two turns 88-Not attempted due to medical condition or safety concerns K. Walk 150 feet 88-Not attempted due to medical condition or safety concerns L. Walking 10 feet on uneven surfaces 88-Not attempted due to medical condition or safety concerns M. 1 step (curb) 88-Not attempted due to medical condition or safety concerns N. 4 steps 88-Not attempted due to medical condition or safety concerns O. 12 steps 88-Not attempted due to medical condition or safety concerns P. Picking up object 88-Not attempted due to medical condition or safety concerns R. Wheel 50 feet with two turns 88-Not attempted due to medical condition or safety concerns S. Wheel 150 feet - Bladder and Bowel Bladder continence Bowel continence - Endurance Fair - Balance Fair - Safety Awareness Fair CURRENT FUNC. DEFICITS: Mobility, Endurance, Balance, Safety Awareness, and Self-Care SIGNATURE PANEL: (SPECIAL EVENTS PLANNER)
--- NOTE | 2021-05-05 18:57 | RAD REPORT ---
EXAM DESCRIPTION: RAD - Chest Single View - 05/05/2021 6:26 pm CLINICAL HISTORY: Elevated WBC, r/o pneumonia. COMPARISON: CHEST SINGLE VIEW dated 02/05/2012 FINDINGS: Lines: None. Lungs: No evidence of edema or pneumonia. Pleural: No significant pleural effusions or pneumothorax. Cardiac: The heart size is within normal limits. Bones: No acute fractures. Other: IMPRESSION: No acute cardiopulmonary disease.
[2021-05-05] MEDS: ESTROGENS,CONJ VAG CREAM VAG SCH (21:00)
[2021-05-05] MEDS: LOVASTATIN 20 MG PO SCH (21:00)
[2021-05-05] MEDS: MONTELUKAST 10 MG TAB PO SCH (21:00)
[2021-05-05] MEDS: ROPINIROLE HCL 1 MG TAB PO SCH (21:49)
[2021-05-06] MEDS: PANTOPRAZOLE 40MG TABLET PO SCH ×2 (05:50→10:07)
[2021-05-06] MEDS: INSULIN -REGULAR HUMAN 50 UNIT/0.5 ML ML SQ SCH ×4 (07:30→21:00)
[2021-05-06] MEDS: MAGNESIUM OXIDE 400 MG TAB PO SCH ×2 (09:00→21:00)
[2021-05-06] MEDS: FLUTICASONE 50MCG NASAL SPRAY NAS SCH (09:00)
[2021-05-06] MEDS: JUVEN PACKET PO SCH ×2 (09:00→21:00)
[2021-05-06] MEDS: PROPRANOLOL HCL 60 MG SA CAP PO SCH (09:00)
--- NOTE | 2021-05-06 09:54 | P.RH.PN ---
Estimated Length of Stay: 12 Expected Discharge Date: 05/11/21 Discharge Disposition Plan: Home Family Support: Yes Assisted Goal: Mobility, Transfers, Self Care Vital Signs: Last Vital Signs Temp 97.6 F 05/06/21 08:00 Pulse 51 05/06/21 08:00 Resp 18 05/06/21 08:00 BP 142/61 H 05/06/21 08:00 Pulse Ox 97 05/06/21 08:00 Laboratory: Laboratory Last Values WBC 12.30 K/uL (4.3-10.9) H D 05/05/21 16:00 RBC 4.60 M/uL (3.86-4.86) 05/05/21 16:00 Hgb 12.3 g/dL (12.0-15.0) 05/05/21 16:00 Hct 37.1 % (36.0-45.0) 05/05/21 16:00 MCV 80.5 fL (80-100) 05/05/21 16:00 MCH 26.8 pg (27.0-35.0) L 05/05/21 16:00 MCHC 33.3 g/dL (32.0-36.0) 05/05/21 16:00 RDW 14.3 % (12.1-15.2) 05/05/21 16:00 Plt Count 464 K/uL (152-406) H D 05/05/21 16:00 MPV 7.1 fL (7.6-11.3) L D 05/05/21 16:00 Neutrophils % 66.9 % (41.7-73.7) 05/05/21 16:00 Lymphocytes % 25.1 % (15.3-44.8) 05/05/21 16:00 Monocytes % 5.4 % (3.3-12.3) 05/05/21 16:00 Eosinophils % 1.9 % (0-4.4) 05/05/21 16:00 Basophils % 0.7 % (0-1.3) 05/05/21 16:00 Absolute Neutrophils 8.3 K/uL (1.8-8.0) H 05/05/21 16:00 Absolute Lymphocytes 3.1 K/uL (0.7-4.9) 05/05/21 16:00 Absolute Monocytes 0.7 K/uL (0.1-1.3) 05/05/21 16:00 Absolute Eosinophils 0.2 K/uL (0-0.5) 05/05/21 16:00 Absolute Basophils 0.1 K/uL (0-0.5) 05/05/21 16:00 Sodium 134 mmol/L (136-145) L 05/05/21 16:00 Potassium 4.2 mmol/L (3.5-5.1) 05/05/21 16:00 Chloride 99 mmol/L (98-107) 05/05/21 16:00 Carbon Dioxide 33 mmol/L (21-32) H 05/05/21 16:00 BUN 17 mg/dL (7-18) 05/05/21 16:00 Creatinine 1.05 mg/dL (0.55-1.3) 05/05/21 16:00 Estimated GFR 51 mL/min (=/>90) L 05/05/21 16:00 Glucose 98 mg/dL (74-106) 05/05/21 16:00 POC Glucose 168 mg/dL (65-120) H 05/06/21 08:02 Calcium 9.8 mg/dL (8.5-10.1) 05/05/21 16:00 Magnesium 2.3 mg/dL (1.8-2.4) D 05/05/21 16:00 Albumin 2.9 g/dL (3.4-5.0) L 05/05/21 16:00 Prealbumin 15.1 mg/dL (20-40) L 05/05/21 16:00 Urine Color Dk yellow (Yellow) 05/01/21 16:25 Urine Appearance Clear (Clear) 05/01/21 16:25 Urine pH 6.5 (5.0-7.0) 05/01/21 16:25 Ur Specific [place] 1.020 (1.005-1.030) 05/01/21 16:25 Glucose (UA)(Auto) Negative (Negative) 05/01/21 16:25 Urine Ketones Negative (Negative) 05/01/21 16:25 Urine Blood Negative (Negative) 05/01/21 16:25 Urine Nitrite Negative (Negative) 05/01/21 16:25 Urine Bilirubin Negative (Negative) 05/01/21 16:25 Urine Urobilinogen 2.0 mg/dL (0.2-1.0) H 05/01/21 16:25 Ur Leukocyte Esterase Negative (Negative) 05/01/21 16:25 Urine RBC <5 /HPF (NONE SEEN) 05/01/21 16:25 Urine WBC <5 /HPF (<5) 05/01/21 16:25 Ur Squamous Epith Cells <5 /HPF (NONE SEEN) 05/01/21 16:25 Urine Bacteria <20 /HPF (<20) 05/01/21 16:25 Urine Culture Reflexed Not needed 05/01/21 16:25 Urine Total Protein Negative (Negative) 05/01/21 16:25 SARS-CoV-2 Rap RNA(RT-PCR) Positive (NEGATIVE) A 04/30/21 03:15 Weight: 208 lb Within Defined Parameters: No Wound Present: No Physician Update: Her labs were reviewed and are stable. She is making good progress with all therapy. Contact guard for transfers, walking 500' with contact. She requires more upper body dressing activities. Comment: hematoma to right side of head from fall prior to admission Summary: Patient's care plan and usp goals have been reviewed and revised as necessary. Please see the Rehabilitation Signature page for all necessary signatures.
[2021-05-06] MEDS: cloNIDine HCL 0.1 MG TAB PO SCH ×3 (10:05→21:05)
[2021-05-06] MEDS: VITAMIN B COMPLEX 1 CAP PO SCH (10:05)
[2021-05-06] MEDS: AMLODIPINE 2.5 MG TAB PO SCH (10:08)
[2021-05-06] MEDS: FLUOXETINE 20 MG CAP PO SCH (10:09)
[2021-05-06] MEDS: VITAMIN D 1000 UNIT TAB PO SCH (10:09)
[2021-05-06] MEDS: HYDROCODONE/APAP 5/325 MG TAB PO PRN (10:09)
[2021-05-06] MEDS: GABAPENTIN 100 MG CAP PO SCH ×2 (10:09→21:06)
[2021-05-06] MEDS: FOLIC ACID 1 MG TABLET PO SCH (10:10)
[2021-05-06] MEDS: lisinopriL 20 MG TAB PO SCH (10:10)
[2021-05-06] MEDS: APIXABAN 2.5 MG TABLET PO SCH ×2 (10:10→21:06)
[2021-05-06] MEDS: DOCOSAHEXANOIC AC/EPA 1000 MG PO SCH (10:10)
[2021-05-06] MEDS: CLOPIDOGREL 75 MG TABLET PO SCH (10:10)
[2021-05-06] MEDS: INSULIN 70/30 100 UNITS/ML SQ SCH ×3 (10:12→17:00)
[2021-05-06] MEDS: ESTROGENS,CONJ VAG CREAM VAG SCH (21:00)
[2021-05-06] MEDS: MONTELUKAST 10 MG TAB PO SCH (21:00)
[2021-05-06] MEDS: LOVASTATIN 20 MG PO SCH (21:00)
[2021-05-06] MEDS: ROPINIROLE HCL 1 MG TAB PO SCH (21:07)
[2021-05-06] MEDS: TRAMADOL HCL 50 MG TAB PO PRN (21:08)
[2021-05-07] MEDS: INSULIN -REGULAR HUMAN 50 UNIT/0.5 ML ML SQ SCH ×4 (07:30→21:00)
[2021-05-07] MEDS: PROPRANOLOL HCL 60 MG SA CAP PO SCH (09:00)
[2021-05-07] MEDS: MAGNESIUM OXIDE 400 MG TAB PO SCH ×2 (09:00→21:00)
[2021-05-07] MEDS: HOME MED 1 EA UNK (Ozempic 0.5 MG) SQ SCH (09:00)
[2021-05-07] MEDS: AMLODIPINE 2.5 MG TAB PO SCH (09:00)
[2021-05-07] MEDS: JUVEN PACKET PO SCH ×2 (09:00→21:00)
[2021-05-07] MEDS: METHOTREXATE 2.5 MG TAB PO SCH (09:00)
[2021-05-07] MEDS: FLUTICASONE 50MCG NASAL SPRAY NAS SCH (09:27)
[2021-05-07] MEDS: lisinopriL 20 MG TAB PO SCH (09:28)
[2021-05-07] MEDS: cloNIDine HCL 0.1 MG TAB PO SCH ×3 (09:28→21:00)
[2021-05-07] MEDS: GABAPENTIN 100 MG CAP PO SCH ×2 (09:29→21:25)
[2021-05-07] MEDS: DOCOSAHEXANOIC AC/EPA 1000 MG PO SCH (09:29)
[2021-05-07] MEDS: APIXABAN 2.5 MG TABLET PO SCH ×2 (09:29→21:27)
[2021-05-07] MEDS: FOLIC ACID 1 MG TABLET PO SCH (09:29)
[2021-05-07] MEDS: FLUOXETINE 20 MG CAP PO SCH (09:29)
[2021-05-07] MEDS: VITAMIN B COMPLEX 1 CAP PO SCH (09:30)
[2021-05-07] MEDS: CLOPIDOGREL 75 MG TABLET PO SCH (09:30)
[2021-05-07] MEDS: VITAMIN D 1000 UNIT TAB PO SCH (09:30)
[2021-05-07] MEDS: CETIRIZINE HCL 5 MG TABLET PO PRN (09:30)
[2021-05-07] MEDS: INSULIN 70/30 100 UNITS/ML SQ SCH ×3 (09:31→17:00)
[2021-05-07] MEDS: ESTROGENS,CONJ VAG CREAM VAG SCH (21:00)
[2021-05-07] MEDS: LOVASTATIN 20 MG PO SCH (21:00)
[2021-05-07] MEDS: TIZANIDINE 4 MG TABLET PO PRN (21:24)
[2021-05-07] MEDS: MONTELUKAST 10 MG TAB PO SCH (21:25)
[2021-05-07] MEDS: ROPINIROLE HCL 1 MG TAB PO SCH (21:25)
[2021-05-08] MEDS: INSULIN -REGULAR HUMAN 50 UNIT/0.5 ML ML SQ SCH ×4 (07:30→21:00)
[2021-05-08] MEDS: JUVEN PACKET PO SCH ×2 (09:00→21:00)
[2021-05-08] MEDS: FLUTICASONE 50MCG NASAL SPRAY NAS SCH (09:00)
[2021-05-08] MEDS: MAGNESIUM OXIDE 400 MG TAB PO SCH ×2 (09:00→21:00)
[2021-05-08] MEDS: cloNIDine HCL 0.1 MG TAB PO SCH ×3 (09:10→21:18)
[2021-05-08] MEDS: CLOPIDOGREL 75 MG TABLET PO SCH (09:11)
[2021-05-08] MEDS: GABAPENTIN 100 MG CAP PO SCH ×2 (09:11→21:16)
[2021-05-08] MEDS: lisinopriL 20 MG TAB PO SCH (09:11)
[2021-05-08] MEDS: APIXABAN 2.5 MG TABLET PO SCH ×2 (09:11→21:16)
[2021-05-08] MEDS: VITAMIN D 1000 UNIT TAB PO SCH (09:11)
[2021-05-08] MEDS: DOCOSAHEXANOIC AC/EPA 1000 MG PO SCH (09:11)
[2021-05-08] MEDS: FOLIC ACID 1 MG TABLET PO SCH (09:11)
[2021-05-08] MEDS: VITAMIN B COMPLEX 1 CAP PO SCH (09:12)
[2021-05-08] MEDS: FLUOXETINE 20 MG CAP PO SCH (09:12)
[2021-05-08] MEDS: PROPRANOLOL HCL 60 MG SA CAP PO SCH (09:12)
[2021-05-08] MEDS: AMLODIPINE 2.5 MG TAB PO SCH (09:12)
[2021-05-08] MEDS: PANTOPRAZOLE 40MG TABLET PO SCH (09:12)
[2021-05-08] MEDS: INSULIN 70/30 100 UNITS/ML SQ SCH ×3 (09:14→17:00)
[2021-05-08] MEDS: LOVASTATIN 20 MG PO SCH (21:00)
[2021-05-08] MEDS: ESTROGENS,CONJ VAG CREAM VAG SCH (21:00)
[2021-05-08] MEDS: MONTELUKAST 10 MG TAB PO SCH (21:16)
[2021-05-08] MEDS: ROPINIROLE HCL 1 MG TAB PO SCH (21:16)
[2021-05-08] MEDS: TIZANIDINE 4 MG TABLET PO PRN (21:17)
[2021-05-09] MEDS: INSULIN -REGULAR HUMAN 50 UNIT/0.5 ML ML SQ SCH ×4 (07:30→20:20)
[2021-05-09] MEDS: PANTOPRAZOLE 40MG TABLET PO SCH (08:09)
[2021-05-09] MEDS: VITAMIN B COMPLEX 1 CAP PO SCH (08:09)
[2021-05-09] MEDS: TRAMADOL HCL 50 MG TAB PO PRN (08:09)
[2021-05-09] MEDS: GABAPENTIN 100 MG CAP PO SCH ×2 (08:11→20:18)
[2021-05-09] MEDS: AMLODIPINE 2.5 MG TAB PO SCH (08:11)
[2021-05-09] MEDS: MAGNESIUM OXIDE 400 MG TAB PO SCH ×2 (08:11→20:17)
[2021-05-09] MEDS: FLUOXETINE 20 MG CAP PO SCH (08:11)
[2021-05-09] MEDS: cloNIDine HCL 0.1 MG TAB PO SCH ×3 (08:11→20:20)
[2021-05-09] MEDS: APIXABAN 2.5 MG TABLET PO SCH ×2 (08:12→20:18)
[2021-05-09] MEDS: PROPRANOLOL HCL 60 MG SA CAP PO SCH (08:12)
[2021-05-09] MEDS: DOCOSAHEXANOIC AC/EPA 1000 MG PO SCH (08:12)
[2021-05-09] MEDS: CLOPIDOGREL 75 MG TABLET PO SCH (08:12)
[2021-05-09] MEDS: VITAMIN D 1000 UNIT TAB PO SCH (08:12)
[2021-05-09] MEDS: FLUTICASONE 50MCG NASAL SPRAY NAS SCH (08:12)
[2021-05-09] MEDS: FOLIC ACID 1 MG TABLET PO SCH (08:12)
[2021-05-09] MEDS: INSULIN 70/30 100 UNITS/ML SQ SCH ×3 (08:13→17:00)
[2021-05-09] MEDS: JUVEN PACKET PO SCH ×2 (08:14→20:00)
[2021-05-09] MEDS: lisinopriL 20 MG TAB PO SCH (08:14)
[2021-05-09] MEDS: TIZANIDINE 4 MG TABLET PO PRN ×2 (11:59→22:09)
[2021-05-09] MEDS ORDERED: ATORVASTATIN 20 MG TAB PO SCH (17:00)
--- NOTE | 2021-05-09 17:14 | R.PN ---
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 Pt denied any Shortness of Breath. WBC increased to 12.3, neutrophils 66.9. Na 134, glucose 63 to 67, prealbumin 15.1. Covid-19 testing is positive x 2. Last test date 04-30-21. Ambulated 1000'' with contact guard assistance using a rollator. [place] J collar is in place. She reports mild to moderate left more than right ear and jaw pain while wearing the [place] J collar. Gabapentin 100 mg bid for trigeminal neuralgia. Thank you Dr. Luciano for help with ingrown toenail. Due to elevated WBC, chest-x-ray ruled out pneumonia 05/05/21. VITAL SIGNS Temperature: 97.6 F SBP/DBP: 94 to 111/52 to 55 Pulse: 62 to 106 Resp: 15 to 18 MEDICATION ALLERGIES: No Known Drug Allergies (NKDA) ENVIRONMENTAL ALLERGIES: - Substance Allergies None Known - Other Allergies None Known NURSING: - Shower allowing shower - Skin care per protocol PRECAUTIONS: - Weight Bearing Precaution NO LIFTING GREATER THAN 5 LBS ACTIVITIES OOB only with supervision THERAPIES: - Orthotics/Prosthetics Orthotic Evaluation. Splinting/Casting. Evaluate and Treat. - Dietary and Nutrition Adequate Nutrition. Nutritional Education. Evaluate and Treat. Nutritional Supplements. - Occupational Therapy Cognitive Retraining. Safety Awareness. Visual Perceptual Training. Patient/Family Education. Evaluat e and Treat. Transfer Training. Household Tasks. Adaptive Equipment. - Speech Therapy Cognitive Training. Expressive Language Skills. Memory Strategies. Receptive Language Skills. Speech Intelligibility Training. Evaluate and Treat. - Physical Therapy Mobility Training. Safety Awareness. Gait Training. Transfer Training. Balance Training. Evaluate and Treat. Patient/Family Education. PHYSICAL EXAM - Gen Alert and awake Lying in bed No apparent distress Oriented to: person, time, and place - Skin No skin breakdown. Normacephalic - Eyes No abnormalities - ENMT No abnormalities - Neck [place] J cervical collar is in place - CVS RRR - Chest No abnormalities - Abd Soft - GI Non distended Deferred - No abnormalities - Ext Mild bilateral lower extremity edema. - MSK 4+/5 weakness in both lower extremities. - Neuro No focal deficits ASSESSMENT: Pt. is a 76 yo Right-handed female.On 04/25/2021 she was admitted to [facility] with diagnosis Cl osed Fracture of Transverse Process of [place].Her impairment category is Orthopaedic Disorders 08 - Ot her Orthopaedic (08.9).Pre-morbidly, Pt. was independent/mod-I in Locomotion, Safety Awareness, Socia l Cognition, and Balance; and she had good Transfers Control, Sphincter Control, Self-Care, Communica tion, and Endurance.Currently, she has deficits of Locomotion, Safety Awareness, Social Cognition, Ba brianda, Transfers Control, Sphincter Control, Self-Care, Communication, and Endurance.Pt. is now refer red to [facility] for acute in-patient rehabilitation in order to maximize pat ciarra's functional independence in activities of daily living, strength, ROM, and mobility.- Rehab Goa l Patient has realistic goal of being discharged at assistance level 7-Ind to reside at Home with Fami ly/Relatives. MDM/PLAN: - Physical Therapy Decreased range of motion - to improve, our physical therapists will perform initial evaluation of p t's status upon admission and devise an individualized program for increasing patient's Range of [place] on. Gait dysfunction - to improve, our physical therapists will perform initial evaluation of pt's statu s upon admission and devise an individualized program for Gait Training, and Wheel Chair mobility Inability to transfer - to improve, our physical therapists will perform initial evaluation of pt's status upon admission and devise an individualized program for Bed mobility Need for home safety evaluation - to improve, our physical therapists will perform initial evaluatio n of pt's status upon admission and devise an individualized program for Home Evaluation Need in caregiver upon discharge - to improve, our physical therapists will perform initial evaluati on of pt's status upon admission and devise an individualized program for Caregiver Training New precaution - to improve, our physical therapists will perform initial evaluation of pt's status upon admission and devise an individualized program for Patient precaution education Edema - to improve, our physical therapists will perform initial evaluation of pt's status upon admi ssion and devise an individualized program for Elevation Training, and Lymphedema Therapy Poor balance - to improve, our physical therapists will perform initial evaluation of pt's status up on admission and devise an individualized program for Balance Training Poor endurance - to improve, our physical therapists will perform initial evaluation of pt's status upon admission and devise an individualized program for Endurance Training Weakness - to improve, our physical therapists will perform initial evaluation of pt's status upon a dmission and devise an individualized program for Aquatic Therapy, Neuromuscular Reeducation, and Str engthening Achieving independence - to improve, our physical therapists will perform initial evaluation of pt's status upon admission and devise an individualized program for Community Reintegration Activities - Occupational Therapy ADL deficits - to improve, our occupation therapists will perform initial evaluation of pt's status upon admission and devise an individualized program for Bathing, Bed mobility, Community Reintegratio n, Cooking, Dressing, Eating, Fine Motor Skills, Grooming, Homemaking, Kitchen Mobility, Laundry, Pat ient Education, Safety Awareness, Splinting - Positioning, Transfers(Toilet, Tub, Shower), and Wheel Chair Management Cognitive deficits - to improve, our occupation therapists will perform initial evaluation of pt's s tatus upon admission and devise an individualized program for Cognition - orientation Need for child adolescent care - to improve, our occupation therapists will perform initial evaluation of pt's status upon admission and devise an individualized program for Caregiver Training Weakness - to improve, our occupation therapists will perform initial evaluation of pt's status upon admission and devise an individualized program for Aquatic Therapy, Balance, Endurance, UE ROM, and UE strengthening - Other See attached MAR (Medication Administration Record) - Diet Type Continue Regular - Diet - Liquid Texture Continue Regular - Tube Feed Continue N/A - Weight Bearing Precaution NO LIFTING GREATER THAN 5 LBS - Skin care per protocol - Diet - Solid Texture Continue Regular - Shower allowing shower FUNCTIONAL STATUS: UPDATED AT WEEKLY TEAM CONFERENCE - Bladder Same accident frequency: 7-Ind - No accidents in the past 7 days - Bowel Same accident frequency: 7-Ind - No accidents in the past 7 days - Walking Same score based on distance walked: 0(N/A) Same score based on distance walked: 1(<=50ft) - Wheelchair Same score based on distance traveled: 0(N/A) FUNCTIONAL STATUS: - Self-Care A. Eating Ind B. Grooming Bubba C. Bathing sup D. Dressing - Upper Bubba E. Dressing - Lower sup F. Toileting sup - Sphincter Control G. Bladder control sup H. Bowel control sup - Transfers Control I. Bed/Chair/Wheelchair Gordon J. Toilet Gordon K. Tub/Shower Gordon - Locomotion L. Walk/Wheelchair (B) Gordon M. Stairs modA - Communication N. Comprehension (B) Bubba O. Expression (B) Bubba - Social Cognition P. Social Interaction Ind Q. Problem Solving Bubba R. Memory Bubba - Endurance Good - Balance Fair - Safety Awareness Fair QI SCORES: - Self-Care A. Eating 06-Independent B. Oral hygiene 03-Partial/moderate assistance C. Toileting hygiene 02-Substantial/maximal assistance E. Shower/bathe self 02-Substantial/maximal assistance F. Upper body dressing 03-Partial/moderate assistance G. Lower body dressing 02-Substantial/maximal assistance H. Putting on/taking off footwear 88-Not attempted due to medical condition or safety concerns - Mobility A. Roll left and right 03-Partial/moderate assistance B. Sit to lying 03-Partial/moderate assistance C. Lying to sitting on side of bed 03-Partial/moderate assistance D. Sit to stand 03-Partial/moderate assistance E. Chair/ycy-er-excbz transfer 03-Partial/moderate assistance F. Toilet transfer 02-Substantial/maximal assistance G. Car transfer 88-Not attempted due to medical condition or safety concerns I. Walk 10 feet 03-Partial/moderate assistance J. Walk 50 feet with two turns 88-Not attempted due to medical condition or safety concerns K. Walk 150 feet 88-Not attempted due to medical condition or safety concerns L. Walking 10 feet on uneven surfaces 88-Not attempted due to medical condition or safety concerns M. 1 step (curb) 88-Not attempted due to medical condition or safety concerns N. 4 steps 88-Not attempted due to medical condition or safety concerns O. 12 steps 88-Not attempted due to medical condition or safety concerns P. Picking up object 88-Not attempted due to medical condition or safety concerns R. Wheel 50 feet with two turns 88-Not attempted due to medical condition or safety concerns S. Wheel 150 feet - Bladder and Bowel Bladder continence Bowel continence - Endurance Fair - Balance Fair - Safety Awareness Fair CURRENT FUNC. DEFICITS: Mobility, Endurance, Balance, Safety Awareness, and Self-Care SIGNATURE PANEL: ([facility])
[2021-05-09] MEDS ORDERED: DOCUSATE NA/SENNA CONC 1 TAB PO PRN (18:26)
[2021-05-09] MEDS ORDERED: D50W 25 GM/50 ML SYRINGE IV PRN ×2 (19:44→19:46)
[2021-05-09] MEDS ORDERED: GLUCAGON 1 MG/VIAL IM PRN ×2 (19:44→19:46)
[2021-05-09] MEDS: METHYL SALICYLATE/MENTHOL 3 OZ TUBE TOP PRN (20:12)
[2021-05-09] MEDS: LIDOCAINE 4% PATCH TOP SCH (20:17)
[2021-05-09] MEDS: MECLIZINE HCL 12.5 MG TAB PO PRN (20:17)
[2021-05-09] MEDS: ROPINIROLE HCL 1 MG TAB PO SCH (20:18)
[2021-05-09] MEDS: MONTELUKAST 10 MG TAB PO SCH (20:18)
[2021-05-09] MEDS: LOVASTATIN 20 MG PO SCH (20:19)
[2021-05-09] MEDS: ESTROGENS,CONJ VAG CREAM VAG SCH (20:20)
[2021-05-10 04:35] LABS: Absolute Lymphocytes (CBC) 2.2 K/uL (0.7-4.9); Hematocrit 35.3 % (36.0-45.0); Lymphocytes % 18.9 % (15.3-44.8); MPV 7.3 fL (7.6-11.3); RBC Red Blood Cell Count 4.42 M/uL (3.86-4.86)
[2021-05-10 04:54] LABS: Albumin 2.9 g/dL (3.4-5.0); Magnesium 2.1 mg/dL (1.8-2.4); Potassium 4.4 mmol/L (3.5-5.1); Prealbumin 19.5 mg/dL (20-40)
[2021-05-10] MEDS: PANTOPRAZOLE 40MG TABLET PO SCH (06:48)
[2021-05-10] MEDS: MECLIZINE HCL 12.5 MG TAB PO PRN ×2 (07:17→20:13)
[2021-05-10] MEDS: FLUTICASONE 50MCG NASAL SPRAY NAS SCH (07:18)
[2021-05-10] MEDS: LIDOCAINE 4% PATCH TOP SCH (07:24)
[2021-05-10] MEDS: INSULIN -REGULAR HUMAN 50 UNIT/0.5 ML ML SQ SCH ×4 (07:30→20:14)
[2021-05-10] MEDS: PROPRANOLOL HCL 60 MG SA CAP PO SCH (08:00)
[2021-05-10] MEDS: JUVEN PACKET PO SCH ×2 (08:00→20:00)
[2021-05-10] MEDS: INSULIN 70/30 100 UNITS/ML SQ SCH ×3 (08:28→17:47)
[2021-05-10] MEDS: TIZANIDINE 4 MG TABLET PO PRN ×2 (08:30→20:35)
[2021-05-10] MEDS: VITAMIN B COMPLEX 1 CAP PO SCH (08:30)
[2021-05-10] MEDS: FLUOXETINE 20 MG CAP PO SCH (08:30)
[2021-05-10] MEDS: APIXABAN 2.5 MG TABLET PO SCH ×2 (08:30→20:13)
[2021-05-10] MEDS: FOLIC ACID 1 MG TABLET PO SCH (08:30)
[2021-05-10] MEDS: VITAMIN D 1000 UNIT TAB PO SCH (08:30)
[2021-05-10] MEDS: CLOPIDOGREL 75 MG TABLET PO SCH (08:31)
[2021-05-10] MEDS: AMLODIPINE 2.5 MG TAB PO SCH (08:31)
[2021-05-10] MEDS: DOCOSAHEXANOIC AC/EPA 1000 MG PO SCH (08:32)
[2021-05-10] MEDS: GABAPENTIN 100 MG CAP PO SCH ×2 (08:32→20:12)
[2021-05-10] MEDS: MAGNESIUM OXIDE 400 MG TAB PO SCH ×2 (08:32→20:12)
[2021-05-10] MEDS ORDERED: PROPRANOLOL HCL 60 MG SA CAP PO ONE (09:00)
[2021-05-10] MEDS: cloNIDine HCL 0.1 MG TAB PO SCH ×3 (09:00→20:12)
[2021-05-10] MEDS: lisinopriL 20 MG TAB PO SCH (09:25)
[2021-05-10] MEDS ORDERED: levoFLOXacin 750 MG TAB PO SCH (15:00)
--- NOTE | 2021-05-10 19:38 | R.PN ---
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 Pt denied any Shortness of Breath. WBC increased to 11.8, neutrophils 71.3. Na 134, glucose 135 to 199, prealbumin 19.5. Covid-19 testing is positive x 2. Last test date 04-30-21. Ambulated 1000'' with contact guard assistance using a rollator. [place] J collar is in place. She reports mild to moderate left more than right ear and jaw pain while wearing the [place] J collar. Gabapentin 100 mg bid for trigeminal neuralgia. Thank you Dr. Luciano for help with ingrown toenail. Due to elevated WBC, chest-x-ray ruled out pneumonia 05/05/21. Urine culture shows E.Coli, pansensitive. She has dysuria and increased urinary frequency. VITAL SIGNS Temperature: 97.4 F SBP/DBP: 106/54 Pulse: 67 Resp: 16 MEDICATION ALLERGIES: No Known Drug Allergies (NKDA) ENVIRONMENTAL ALLERGIES: - Substance Allergies None Known - Other Allergies None Known NURSING: - Shower allowing shower - Skin care per protocol PRECAUTIONS: - Weight Bearing Precaution NO LIFTING GREATER THAN 5 LBS ACTIVITIES OOB only with supervision THERAPIES: - Orthotics/Prosthetics Orthotic Evaluation. Splinting/Casting. Evaluate and Treat. - Dietary and Nutrition Adequate Nutrition. Nutritional Education. Evaluate and Treat. Nutritional Supplements. - Occupational Therapy Cognitive Retraining. Safety Awareness. Visual Perceptual Training. Patient/Family Education. Evaluat e and Treat. Transfer Training. Household Tasks. Adaptive Equipment. - Speech Therapy Cognitive Training. Expressive Language Skills. Memory Strategies. Receptive Language Skills. Speech Intelligibility Training. Evaluate and Treat. - Physical Therapy Mobility Training. Safety Awareness. Gait Training. Transfer Training. Balance Training. Evaluate and Treat. Patient/Family Education. PHYSICAL EXAM - Gen Alert and awake Lying in bed No apparent distress Oriented to: person, time, and place - Skin No skin breakdown. Normacephalic - Eyes No abnormalities - ENMT No abnormalities - Neck [place] J cervical collar is in place - CVS RRR - Chest No abnormalities - Abd Soft - GI Non distended Deferred - No abnormalities - Ext Mild bilateral lower extremity edema. - MSK 4+/5 weakness in both lower extremities. - Neuro No focal deficits ASSESSMENT: Pt. is a 76 yo Right-handed female.On 04/25/2021 she was admitted to [facility] with diagnosis Cl osed Fracture of Transverse Process of [place].Her impairment category is Orthopaedic Disorders 08 - Ot her Orthopaedic (08.9).Pre-morbidly, Pt. was independent/mod-I in Locomotion, Safety Awareness, Socia l Cognition, and Balance; and she had good Transfers Control, Sphincter Control, Self-Care, Communica tion, and Endurance.Currently, she has deficits of Locomotion, Safety Awareness, Social Cognition, Ba brianda, Transfers Control, Sphincter Control, Self-Care, Communication, and Endurance.Pt. is now refer red to [facility] for acute in-patient rehabilitation in order to maximize pat ciarra's functional independence in activities of daily living, strength, ROM, and mobility.- Rehab Goa l Patient has realistic goal of being discharged at assistance level 7-Ind to reside at Home with Fami ly/Relatives. MDM/PLAN: - Physical Therapy Decreased range of motion - to improve, our physical therapists will perform initial evaluation of p t's status upon admission and devise an individualized program for increasing patient's Range of [place] on. Gait dysfunction - to improve, our physical therapists will perform initial evaluation of pt's statu s upon admission and devise an individualized program for Gait Training, and Wheel Chair mobility Inability to transfer - to improve, our physical therapists will perform initial evaluation of pt's status upon admission and devise an individualized program for Bed mobility Need for home safety evaluation - to improve, our physical therapists will perform initial evaluatio n of pt's status upon admission and devise an individualized program for Home Evaluation Need in caregiver upon discharge - to improve, our physical therapists will perform initial evaluati on of pt's status upon admission and devise an individualized program for Caregiver Training New precaution - to improve, our physical therapists will perform initial evaluation of pt's status upon admission and devise an individualized program for Patient precaution education Edema - to improve, our physical therapists will perform initial evaluation of pt's status upon admi ssion and devise an individualized program for Elevation Training, and Lymphedema Therapy Poor balance - to improve, our physical therapists will perform initial evaluation of pt's status up on admission and devise an individualized program for Balance Training Poor endurance - to improve, our physical therapists will perform initial evaluation of pt's status upon admission and devise an individualized program for Endurance Training Weakness - to improve, our physical therapists will perform initial evaluation of pt's status upon a dmission and devise an individualized program for Aquatic Therapy, Neuromuscular Reeducation, and Str engthening Achieving independence - to improve, our physical therapists will perform initial evaluation of pt's status upon admission and devise an individualized program for Community Reintegration Activities - Occupational Therapy ADL deficits - to improve, our occupation therapists will perform initial evaluation of pt's status upon admission and devise an individualized program for Bathing, Bed mobility, Community Reintegratio n, Cooking, Dressing, Eating, Fine Motor Skills, Grooming, Homemaking, Kitchen Mobility, Laundry, Pat ient Education, Safety Awareness, Splinting - Positioning, Transfers(Toilet, Tub, Shower), and Wheel Chair Management Cognitive deficits - to improve, our occupation therapists will perform initial evaluation of pt's s tatus upon admission and devise an individualized program for Cognition - orientation Need for care information associate - to improve, our occupation therapists will perform initial evaluation of pt's status upon admission and devise an individualized program for Caregiver Training Weakness - to improve, our occupation therapists will perform initial evaluation of pt's status upon admission and devise an individualized program for Aquatic Therapy, Balance, Endurance, UE ROM, and UE strengthening - Other See attached MAR (Medication Administration Record) - Diet Type Continue Regular - Diet - Liquid Texture Continue Regular - Tube Feed Continue N/A - Weight Bearing Precaution NO LIFTING GREATER THAN 5 LBS - Skin care per protocol - Diet - Solid Texture Continue Regular - Shower allowing shower FUNCTIONAL STATUS: UPDATED AT WEEKLY TEAM CONFERENCE - Bladder Same accident frequency: 7-Ind - No accidents in the past 7 days - Bowel Same accident frequency: 7-Ind - No accidents in the past 7 days - Walking Same score based on distance walked: 0(N/A) Same score based on distance walked: 1(<=50ft) - Wheelchair Same score based on distance traveled: 0(N/A) FUNCTIONAL STATUS: - Self-Care A. Eating Ind B. Grooming Bubba C. Bathing sup D. Dressing - Upper Bubba E. Dressing - Lower sup F. Toileting sup - Sphincter Control G. Bladder control sup H. Bowel control sup - Transfers Control I. Bed/Chair/Wheelchair Gordon J. Toilet Gordon K. Tub/Shower Gordon - Locomotion L. Walk/Wheelchair (B) Gordon M. Stairs modA - Communication N. Comprehension (B) Bubba O. Expression (B) Bubba - Social Cognition P. Social Interaction Ind Q. Problem Solving Bubba R. Memory Bubba - Endurance Good - Balance Fair - Safety Awareness Fair QI SCORES: - Self-Care A. Eating 06-Independent B. Oral hygiene 03-Partial/moderate assistance C. Toileting hygiene 02-Substantial/maximal assistance E. Shower/bathe self 02-Substantial/maximal assistance F. Upper body dressing 03-Partial/moderate assistance G. Lower body dressing 02-Substantial/maximal assistance H. Putting on/taking off footwear 88-Not attempted due to medical condition or safety concerns - Mobility A. Roll left and right 03-Partial/moderate assistance B. Sit to lying 03-Partial/moderate assistance C. Lying to sitting on side of bed 03-Partial/moderate assistance D. Sit to stand 03-Partial/moderate assistance E. Chair/ums-bo-mecbg transfer 03-Partial/moderate assistance F. Toilet transfer 02-Substantial/maximal assistance G. Car transfer 88-Not attempted due to medical condition or safety concerns I. Walk 10 feet 03-Partial/moderate assistance J. Walk 50 feet with two turns 88-Not attempted due to medical condition or safety concerns K. Walk 150 feet 88-Not attempted due to medical condition or safety concerns L. Walking 10 feet on uneven surfaces 88-Not attempted due to medical condition or safety concerns M. 1 step (curb) 88-Not attempted due to medical condition or safety concerns N. 4 steps 88-Not attempted due to medical condition or safety concerns O. 12 steps 88-Not attempted due to medical condition or safety concerns P. Picking up object 88-Not attempted due to medical condition or safety concerns R. Wheel 50 feet with two turns 88-Not attempted due to medical condition or safety concerns S. Wheel 150 feet - Bladder and Bowel Bladder continence Bowel continence - Endurance Fair - Balance Fair - Safety Awareness Fair CURRENT FUNC. 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
[2021-05-10] MEDS: LOVASTATIN 20 MG PO SCH ×2 (20:12→20:13)
[2021-05-10] MEDS: ROPINIROLE HCL 1 MG TAB PO SCH (20:13)
[2021-05-10] MEDS: ESTROGENS,CONJ VAG CREAM VAG SCH (20:14)
[2021-05-10] MEDS: MONTELUKAST 10 MG TAB PO SCH (20:14)
[2021-05-11] MEDS: PANTOPRAZOLE 40MG TABLET PO SCH (06:51)
[2021-05-11 07:17] VITALS: BP 153/75; TEMP 96.9
[2021-05-11] MEDS: INSULIN -REGULAR HUMAN 50 UNIT/0.5 ML ML SQ SCH ×2 (07:26→11:30)
[2021-05-11] MEDS ORDERED: CRANBERRY FRUIT EXTRACT 400 MG CAP PO SCH (08:00)
[2021-05-11] MEDS: LIDOCAINE 4% PATCH TOP SCH (08:00)
[2021-05-11] MEDS: JUVEN PACKET PO SCH (08:00)
[2021-05-11] MEDS ORDERED: PROPRANOLOL HCL 60 MG SA CAP PO SCH ×3 (08:00→21:00)
[2021-05-11] MEDS: VITAMIN B COMPLEX 1 CAP PO SCH (08:22)
[2021-05-11] MEDS: FLUOXETINE 20 MG CAP PO SCH (08:23)
[2021-05-11] MEDS: APIXABAN 2.5 MG TABLET PO SCH (08:23)
[2021-05-11] MEDS: MAGNESIUM OXIDE 400 MG TAB PO SCH (08:23)
[2021-05-11] MEDS: VITAMIN D 1000 UNIT TAB PO SCH (08:23)
[2021-05-11] MEDS: GABAPENTIN 100 MG CAP PO SCH (08:23)
[2021-05-11] MEDS: CLOPIDOGREL 75 MG TABLET PO SCH (08:23)
[2021-05-11] MEDS: AMLODIPINE 2.5 MG TAB PO SCH (08:23)
[2021-05-11] MEDS: DOCOSAHEXANOIC AC/EPA 1000 MG PO SCH (08:23)
[2021-05-11] MEDS: lisinopriL 20 MG TAB PO SCH (08:24)
[2021-05-11] MEDS: INSULIN 70/30 100 UNITS/ML SQ SCH ×2 (08:26→13:04)
[2021-05-11] MEDS: FOLIC ACID 1 MG TABLET PO SCH (08:35)
[2021-05-11] MEDS: FLUTICASONE 50MCG NASAL SPRAY NAS SCH (08:35)
[2021-05-11] MEDS: cloNIDine HCL 0.1 MG TAB PO SCH (08:37)
[2021-05-11] MEDS ORDERED: cloNIDine HCL 0.1 MG TAB PO PRN (08:39)
[2021-05-11] MEDS: TRAMADOL HCL 50 MG TAB PO PRN (09:14)
[2021-05-11] MEDS: METHYL SALICYLATE/MENTHOL 3 OZ TUBE TOP PRN (09:47)
--- NOTE | 2021-05-11 15:15 | R.PN ---
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 Pt denied any Shortness of Breath. WBC increased to 11.8, neutrophils 71.3. Na 134, glucose 152 to 184, prealbumin 19.5. Covid-19 testing is positive x 2. Last test date 04-30-21. Ambulated 500'' with contact guard assistance using a rollator. Up and down 5 steps with standby ass istance. [place] J collar is in place. She reports mild left more than right ear and jaw pain while wearing the [place] J collar. Gabapentin 1 00 mg bid for trigeminal neuralgia. Thank you Dr. Luciano for help with ingrown toenail. Due to elevated WBC, chest-x-ray ruled out pneumonia 05/05/21. Urine culture shows E.Coli, pansensitive. She has dysuria and increased urinary frequency. She will be discharged home today. VITAL SIGNS Temperature: 97.9 F SBP/DBP: 153/75 Pulse: 67 Resp: 16 MEDICATION ALLERGIES: No Known Drug Allergies (NKDA) ENVIRONMENTAL ALLERGIES: - Substance Allergies None Known - Other Allergies None Known NURSING: - Shower allowing shower - Skin care per protocol PRECAUTIONS: - Weight Bearing Precaution NO LIFTING GREATER THAN 5 LBS ACTIVITIES OOB only with supervision THERAPIES: - Orthotics/Prosthetics Orthotic Evaluation. Splinting/Casting. Evaluate and Treat. - Dietary and Nutrition Adequate Nutrition. Nutritional Education. Evaluate and Treat. Nutritional Supplements. - Occupational Therapy Cognitive Retraining. Safety Awareness. Visual Perceptual Training. Patient/Family Education. Evaluat e and Treat. Transfer Training. Household Tasks. Adaptive Equipment. - Speech Therapy Cognitive Training. Expressive Language Skills. Memory Strategies. Receptive Language Skills. Speech Intelligibility Training. Evaluate and Treat. - Physical Therapy Mobility Training. Safety Awareness. Gait Training. Transfer Training. Balance Training. Evaluate and Treat. Patient/Family Education. PHYSICAL EXAM - Gen Alert and awake Lying in bed No apparent distress Oriented to: person, time, and place - Skin No skin breakdown. Normacephalic - Eyes No abnormalities - ENMT No abnormalities - Neck [place] J cervical collar is in place - CVS RRR - Chest No abnormalities - Abd Soft - GI Non distended Deferred - No abnormalities - Ext Mild bilateral lower extremity edema. - MSK 4+/5 weakness in both lower extremities. - Neuro No focal deficits ASSESSMENT: Pt. is a 76 yo Right-handed female.On 04/25/2021 she was admitted to [facility] with diagnosis Cl osed Fracture of Transverse Process of Hooper.Her impairment category is Orthopaedic Disorders 08 - Ot her Orthopaedic (08.9).Pre-morbidly, Pt. was independent/mod-I in Locomotion, Safety Awareness, Socia l Cognition, and Balance; and she had good Transfers Control, Sphincter Control, Self-Care, Communica tion, and Endurance.Currently, she has deficits of Locomotion, Safety Awareness, Social Cognition, Ba brianda, Transfers Control, Sphincter Control, Self-Care, Communication, and Endurance.Pt. is now refer red to [facility] for acute in-patient rehabilitation in order to maximize pat ient's functional independence in activities of daily living, strength, ROM, and mobility.- Rehab Goa l Patient has realistic goal of being discharged at assistance level 7-Ind to reside at Home with Fami ly/Relatives. MDM/PLAN: - Physical Therapy Decreased range of motion - to improve, our physical therapists will perform initial evaluation of p t's status upon admission and devise an individualized program for increasing patient's Range of Fredrick on. Gait dysfunction - to improve, our physical therapists will perform initial evaluation of pt's statu s upon admission and devise an individualized program for Gait Training, and Wheel Chair mobility Inability to transfer - to improve, our physical therapists will perform initial evaluation of pt's status upon admission and devise an individualized program for Bed mobility Need for home safety evaluation - to improve, our physical therapists will perform initial evaluatio n of pt's status upon admission and devise an individualized program for Home Evaluation Need in caregiver upon discharge - to improve, our physical therapists will perform initial evaluati on of pt's status upon admission and devise an individualized program for Caregiver Training New precaution - to improve, our physical therapists will perform initial evaluation of pt's status upon admission and devise an individualized program for Patient precaution education Edema - to improve, our physical therapists will perform initial evaluation of pt's status upon admi ssion and devise an individualized program for Elevation Training, and Lymphedema Therapy Poor balance - to improve, our physical therapists will perform initial evaluation of pt's status up on admission and devise an individualized program for Balance Training Poor endurance - to improve, our physical therapists will perform initial evaluation of pt's status upon admission and devise an individualized program for Endurance Training Weakness - to improve, our physical therapists will perform initial evaluation of pt's status upon a dmission and devise an individualized program for Aquatic Therapy, Neuromuscular Reeducation, and Str engthening Achieving independence - to improve, our physical therapists will perform initial evaluation of pt's status upon admission and devise an individualized program for Community Reintegration Activities - Occupational Therapy ADL deficits - to improve, our occupation therapists will perform initial evaluation of pt's status upon admission and devise an individualized program for Bathing, Bed mobility, Community Reintegratio n, Cooking, Dressing, Eating, Fine Motor Skills, Grooming, Homemaking, Kitchen Mobility, Laundry, Pat ient Education, Safety Awareness, Splinting - Positioning, Transfers(Toilet, Tub, Shower), and Wheel Chair Management Cognitive deficits - to improve, our occupation therapists will perform initial evaluation of pt's s tatus upon admission and devise an individualized program for Cognition - orientation Need for direct care supervisor - to improve, our occupation therapists will perform initial evaluation of pt's status upon admission and devise an individualized program for Caregiver Training Weakness - to improve, our occupation therapists will perform initial evaluation of pt's status upon admission and devise an individualized program for Aquatic Therapy, Balance, Endurance, UE ROM, and UE strengthening - Other See attached MAR (Medication Administration Record) - Diet Type Continue Regular - Diet - Liquid Texture Continue Regular - Tube Feed Continue N/A - Weight Bearing Precaution NO LIFTING GREATER THAN 5 LBS - Skin care per protocol - Diet - Solid Texture Continue Regular - Shower allowing shower FUNCTIONAL STATUS: UPDATED AT WEEKLY TEAM CONFERENCE - Bladder Same accident frequency: 7-Ind - No accidents in the past 7 days - Bowel Same accident frequency: 7-Ind - No accidents in the past 7 days - Walking Same score based on distance walked: 0(N/A) Same score based on distance walked: 1(<=50ft) - Wheelchair Same score based on distance traveled: 0(N/A) FUNCTIONAL STATUS: - Self-Care A. Eating Ind B. Grooming Bubba C. Bathing sup D. Dressing - Upper Bubba E. Dressing - Lower sup F. Toileting sup - Sphincter Control G. Bladder control sup H. Bowel control sup - Transfers Control I. Bed/Chair/Wheelchair Gordon J. Toilet Gordon K. Tub/Shower Gordon - Locomotion L. Walk/Wheelchair (B) Gordon M. Stairs modA - Communication N. Comprehension (B) Bubba O. Expression (B) Bubba - Social Cognition P. Social Interaction Ind Q. Problem Solving Bubba R. Memory Bubba - Endurance Good - Balance Fair - Safety Awareness Fair QI SCORES: - Self-Care A. Eating 06-Independent B. Oral hygiene 03-Partial/moderate assistance C. Toileting hygiene 02-Substantial/maximal assistance E. Shower/bathe self 02-Substantial/maximal assistance F. Upper body dressing 03-Partial/moderate assistance G. Lower body dressing 02-Substantial/maximal assistance H. Putting on/taking off footwear 88-Not attempted due to medical condition or safety concerns - Mobility A. Roll left and right 03-Partial/moderate assistance B. Sit to lying 03-Partial/moderate assistance C. Lying to sitting on side of bed 03-Partial/moderate assistance D. Sit to stand 03-Partial/moderate assistance E. Chair/[id number] transfer 03-Partial/moderate assistance F. Toilet transfer 02-Substantial/maximal assistance G. Car transfer 88-Not attempted due to medical condition or safety concerns I. Walk 10 feet 03-Partial/moderate assistance J. Walk 50 feet with two turns 88-Not attempted due to medical condition or safety concerns K. Walk 150 feet 88-Not attempted due to medical condition or safety concerns L. Walking 10 feet on uneven surfaces 88-Not attempted due to medical condition or safety concerns M. 1 step (curb) 88-Not attempted due to medical condition or safety concerns N. 4 steps 88-Not attempted due to medical condition or safety concerns O. 12 steps 88-Not attempted due to medical condition or safety concerns P. Picking up object 88-Not attempted due to medical condition or safety concerns R. Wheel 50 feet with two turns 88-Not attempted due to medical condition or safety concerns S. Wheel 150 feet - Bladder and Bowel Bladder continence Bowel continence - Endurance Fair - Balance Fair - Safety Awareness Fair CURRENT [facility]. 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
== END 2021-05-11 15:20 | disposition home health service (06) | DRG 559 ==
LOC: 5TH 22:36 → 4TH 04-30 13:48 → 5TH 05-09 09:14
PROVIDERS: ADMIT Psychiatry & Neurology Neurology with Special Qualifications in Child Neurology; ATTEND Psychiatry & Neurology Neurology with Special Qualifications in Child Neurology
PROC: 0HBRXZZ Excision of Toe Nail, External Approach (ICD-10-PCS; principal; 2021-05-05)
DX: S12.100D Unspecified displaced fracture of second cervical vertebra, subsequent encounter for fracture with routine healing (principal); U07.1 COVID-19; I10 Essential (primary) hypertension; E11.51 Type 2 diabetes mellitus with diabetic peripheral angiopathy without gangrene; G50.0 Trigeminal neuralgia; K21.9 Gastro-esophageal reflux disease without esophagitis; G20 Parkinson's disease; B96.20 Unspecified Escherichia coli [E. coli] as the cause of diseases classified elsewhere; B35.1 Tinea unguium; R30.0 Dysuria; Z88.1 Allergy status to other antibiotic agents; Z88.0 Allergy status to penicillin; Z91.048 Other nonmedicinal substance allergy status; Z79.02 Long term (current) use of antithrombotics/antiplatelets; Z79.82 Long term (current) use of aspirin; Z79.4 Long term (current) use of insulin; Z79.899 Other long term (current) drug therapy; Z86.718 Personal history of other venous thrombosis and embolism
CPT/HCPCS: 36415; 71045; 80048; 81001; 82040; 82947; 83735; 84134; 85025; 87077; 87086; 87088; 87186; 92523; 97110; 97116; 97162; 97165; 97530; 97542; J1815; J8597; J8610; U0003

== ENCOUNTER 2023-04-06 16:01 | Inpatient (IN) | payer OTHER ==
[2023-04-07] MEDS ORDERED: ALBUTEROL 90 MCG IH PRN (13:35)
[2023-04-07] MEDS ORDERED: MECLIZINE HCL 12.5 MG TAB PO PRN (14:09)
[2023-04-07] MEDS ORDERED: GLUCAGON 1 MG/VIAL IM PRN ×3 (14:13→15:11)
[2023-04-07] MEDS ORDERED: D10W 250 ML BAG IV PRN (14:13)
[2023-04-07] MEDS ORDERED: D50W 25 GM/50 ML SYRINGE IV PRN ×2 (14:14→15:11)
[2023-04-07 14:34] LABS: Specific Gravity 1.011 (1.005-1.030); Urine Bacteria <20 /HPF (<20); Urine Bilirubin NEGATIVE (Negative); Urine Blood Negative (Negative); Urine Clarity Clear (Clear); Urine Color Light-Yellow (Yellow); Urine Glucose NEGATIVE (Negative); Urine Protein NEGATIVE (Negative); Urine RBC <5 /HPF (None Seen); Urine Urobilinogen 1+ (Normal)
[2023-04-07] MEDS: INSULIN REGULAR (HUMAN) 100 UNIT/ML SQ SCH (16:30)
[2023-04-07] MEDS: FLEET ENEMA ADULT PR PRN (16:34)
[2023-04-07] MEDS ORDERED: FORMULATION-R RECTAL 57GM PR PRN (17:29)
[2023-04-07] MEDS: INSULIN 70/30 100 UNITS/ML SQ SCH (17:38)
[2023-04-07] MEDS: MAGNESIUM CITRATE 300 ML BOT PO ONE (18:58)
[2023-04-07] MEDS ORDERED: DULERA 200/5 (MOMETASONE/FORMOTEROL) INHALER IH PRN (18:59)
[2023-04-07] MEDS: NYSTATIN PWDR 100000 UNIT/GM TOP SCH (20:05)
[2023-04-07] MEDS: AZELASTINE NASAL SPRAY 30 ML NAS SCH (20:05)
[2023-04-07] MEDS: APIXABAN 2.5 MG TABLET PO SCH (20:06)
[2023-04-07] MEDS: MONTELUKAST 10 MG TAB PO SCH (20:06)
[2023-04-07] MEDS: PROPRANOLOL HCL 60 MG SA CAP PO SCH (20:06)
[2023-04-07] MEDS: ATORVASTATIN 20 MG TAB PO SCH (20:06)
[2023-04-07] MEDS: DOCUSATE NA/SENNA CONC 1 TAB PO SCH (20:06)
[2023-04-07] MEDS: MAGNESIUM OXIDE 400 MG TAB PO SCH (20:06)
[2023-04-07] MEDS: TRAMADOL HCL 50 MG TAB PO PRN (21:02)
[2023-04-07] MEDS: MELATONIN 3 MG TABLET PO PRN (21:03)
[2023-04-08] MEDS: TIZANIDINE 4 MG TABLET PO PRN (00:22)
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
[2023-04-08] MEDS: PANTOPRAZOLE 40MG TABLET PO SCH (06:59)
[2023-04-08 07:12] LABS: Hematocrit 34.3 % (36.0-45.0); Lymphocytes % 22.5 % (15.3-44.8); MCV 82.9 fL (80-100); Platelets 396 thou/uL (152-406); RBC Red Blood Cell Count 4.14 M/uL (3.86-4.86)
[2023-04-08 07:28] LABS: Albumin 2.9 g/dL (3.4-5.0); Magnesium 2.3 mg/dL (1.6-2.4); Potassium 3.7 mEq/L (3.5-5.1); Prealbumin 18.2 mg/dL (20-40)
[2023-04-08] MEDS: ROPINIROLE HCL 1 MG TAB PO SCH ×2 (08:00→19:16)
[2023-04-08] MEDS: TURMERIC PO SCH (08:00)
[2023-04-08] MEDS: CETIRIZINE HCL 5 MG TABLET PO SCH ×2 (08:00→19:16)
[2023-04-08] MEDS: LINZESS 72 MCG PO SCH (08:00)
[2023-04-08] MEDS: DOCUSATE NA 100 MG CAP PO SCH (08:00)
[2023-04-08] MEDS: LIDOCAINE 4% PATCH TOP SCH (09:06)
[2023-04-08] MEDS: VITAMIN B COMPLEX 1 CAP PO SCH (09:10)
[2023-04-08] MEDS: VITAMIN D 1000 UNIT TAB PO SCH (09:10)
[2023-04-08] MEDS: DOCOSAHEXANOIC AC/EPA 1000 MG PO SCH (09:10)
[2023-04-08] MEDS: FOLIC ACID 1 MG TABLET PO SCH (09:11)
[2023-04-08] MEDS: FLUOXETINE 20 MG CAP PO SCH (09:12)
[2023-04-08] MEDS: lisinopriL 20 MG TAB PO SCH ×2 (09:17→19:11)
[2023-04-08] MEDS: INSULIN 70/30 100 UNITS/ML SQ SCH (09:20)
[2023-04-08] MEDS: METHOTREXATE 2.5 MG TAB PO SCH (09:27)
[2023-04-08] MEDS: FLUTICASONE 50MCG NASAL SPRAY NAS SCH (09:30)
[2023-04-08] MEDS: ALBUTEROL INHALER 200 PUFF/6.7 GM IH PRN (09:30)
[2023-04-08] MEDS: LOPERAMIDE HCL 2 MG CAPSULE PO PRN (13:46)
[2023-04-08] MEDS: TRAMADOL HCL 50 MG TAB PO PRN (15:59)
[2023-04-09] MEDS: GABAPENTIN 100 MG CAP PO SCH (20:42)
--- NOTE | 2023-04-09 23:51 | PN ---
Date of Progress Note: 04/09/2023 Time Of Service: 12:30 p.m. Subjective: Ms. Reaves is sitting in a chair with therapist in the room. She has a [place] J collar i n place. She reports some pain in both shoulders where the collar is resting on the neck and shoulde rs and pain in both knees. She does have a lidocaine patch on the right knee and lidocaine patch on the left shoulder. Otherwise, some issues of constipation and then she had some diarrhea following t hat and that has stopped. She does not have additional complaints in terms of subjective. Objective: No fevers or chills. No current myalgias, although there is issue of pain in the joints and some arthralgias in the knees. No rash. No active psychiatric issues. No genitourinary issues and she has not had additional diarrhea. No other complaints there. Physical Examination: Vital Signs: Blood pressure 143/58, pulse of 59, respiratory rate of 16, temperature 97.1, oxygen sa turation 98%. Pain is around 0 up to 4 in her neck and at the knees. HEENT: She is normocephalic. Her [place] J collar is in place. Atraumatic. Sclerae anicteric. Orop harynx pink, moist. Neck: Supple. Chest: Clear. Extremities: Show mild edema in the lower extremities. Laboratory Studies: White blood cell count 13.2, neutrophils 69.6, hemoglobin 11.4, hematocrit 34.3. Glucose ranged from 113 to 179. Sodium 135, potassium 3.7, chloride 99, carbon dioxide 31, BUN 16, creatinine 0.76, prealbumin 18.2, albumin 2.9. Urinalysis is remarkable for 1+ urobilinogen and is otherwise unremarkable. Medications: Eliquis 2.5 mg twice daily, Ventolin inhaler 2 puffs every 6 hours as needed, Lipitor 2 0 mg at bedtime. She has azelastine hydrochloride nasal inhaler 2 sprays per nostril twice daily, Zy rtec 10 mg at bedtime, vitamin D 1000 international units daily, clonidine 0.1 mg 3 times daily, Cola ce 100 mg daily, omega-3 fish oil 1000 mg daily, Prozac 40 mg daily, Flonase 2 sprays per nostril poonam ly, folic acid 1 mg daily, gabapentin is now started at 100 mg twice daily for the shoulder and knee pain. She is on insulin 70/30, 24 units with breakfast and lunch and mild insulin sliding scale. lidocaine patches are placed half on each shoulder and half patch on each knee. Prinivil 20 mg twi ce daily, and she had the Imodium 2 mg every 4 hours for diarrhea, magnesium oxide 400 mg twice daily , meclizine 25 mg 3 times daily, melatonin 3 mg at bedtime, methotrexate 2.5 mg every 7th day, Singul air 10 mg at bedtime, Mycostatin powder apply topically twice daily as needed, Protonix twice daily, propranolol 120 mg at bedtime. She has Preparation H twice daily as needed, Requip 2 mg at bedtime, Senokot-S 2 at bedtime, vitamin B complex 1 capsule daily, tramadol 50 mg every 6 hours as needed, Za naflex 2 mg at bedtime for muscle spasms. Her progress made so far with physical, occupational, and speech therapy: Today with physical therap y, she ambulated 30 feet with a rolling walker with minimum assistance. She completed stair manageme nt, going up and down 3 to 4 inches high steps with moderate assistance and mobilized with wheelchair 75 feet with contact guard to minimum assistance. With occupational therapy, toileting maximum assi st. Bathing, minimum assistance. Upper body dressing, minimum assistance. Lower body dressing, dep endent. Grooming, minimum assistance. With speech, she has long-term goals to improve executive fun ctioning and memory from moderate assistance to minimum assistance, to improve safety awareness, to i ndependence for her to return home. Overall, Ms. Reaves is beginning to make fair progress with physical, occupational, and speech therap y. She is participating well especially with her pain being managed, which is the biggest limiting f actor in her improving in a more rapid pace. Assessment And Plan: Ms. Reaves is a 78-year-old patient admitted to the rehabilitation unit with st roke with no paresis, but causing incoordination and sensory deficits. She has multiple cerebral inf arcts likely cardioembolic in the MCA and TERRANCE territory. In addition, renal insufficiency, mild cogn itive impairment. She has recurrent falls and C2 transverse foraminal fracture, restless legs syndro me, urinary tract infection, GE reflux, recent diarrhea, hypertension with osteoporosis, diabetes gabriela litus type 2, decreased mobility, decreased physical functioning. Plan: 1.She will continue with physical, occupational, and speech therapy for 3-1/2 hours, 5 of 7 days. 2.She has multiple comorbid conditions and medications, which are noted above. She will continue wi th those including the gabapentin now 100 mg twice daily along with the lidocaine patches to shoulder s and knees to assist her with the pain reduction and to allow her to participate more fully in thera py. She also has a [place] J collar in place for every transfer and mobilization in wheelchair and wal ker. Comorbidities That Continue To Impact Rehabilitation: Currently, her cervical and knee pain are big factors limiting her improving in a more rapid pace. In addition, the [place] collar does limit her neck movement, but that is needed because of the C2 fracture. JAIMIE/MARY Voice ID: [id number] Report ID: [id number]
[2023-04-10] MEDS: LIDOCAINE 4% PATCH TOP SCH (07:46)
[2023-04-10] MEDS: INSULIN 70/30 100 UNITS/ML SQ SCH (08:13)
[2023-04-10] MEDS ORDERED: OZEMPIC 0.5 MG SQ SCH (09:00)
[2023-04-10] MEDS: ACETAMINOPHEN 500 MG TAB PO PRN (10:05)
[2023-04-10] MEDS: CHLORASEPTIC LOZENGES PO SCH (10:57)
[2023-04-10] MEDS: TRAMADOL HCL 50 MG TAB PO PRN (13:06)
[2023-04-10 13:07] LABS: Absolute Lymphocytes (CBC) 2.3 K/uL (0.7-4.9); Hematocrit 34.2 % (36.0-45.0); Lymphocytes % 17.7 % (15.3-44.8); MCV 82.5 fL (80-100); MPV 7.3 fL (7.6-11.3); Platelets 329 thou/uL (152-406); RBC Red Blood Cell Count 4.15 M/uL (3.86-4.86)
[2023-04-10 13:18] LABS: Potassium 4.3 mEq/L (3.5-5.1)
[2023-04-10] MEDS: GABAPENTIN 300 MG CAP PO SCH (19:40)
--- NOTE | 2023-04-10 22:36 | PN ---
Date of Progress Note: 04/10/2023 Time Of Service: 1 p.m. Subjective: Ms. Reaves is doing well, lying in her bed in between therapy sessions. She had a showe r earlier and she is doing well. Her [place] J collar is in place. She does report some improvement i n the pain in her shoulders and knees. She has lidocaine patches there and gabapentin as well on [address]a [address]. Review of Systems: No fevers, chills, mild myalgias and arthralgias. No rash. No headache. No psychiatric issues. No active gastrointestinal or genitourinary issues at this point. Physical Examination: Vital Signs: Blood pressure 155/70, pulse , respiratory rate 16, temperature 97.2, ox satu ration 97%. General: Ms. Reaves is again resting comfortably. HEENT: Her cervical collar is in place. She is normocephalic, atraumatic. Sclerae anicteric. Orop harynx pink, moist. Neck: Supple. Chest: Clear. Heart: Regular. Extremities: Show no significant edema or cyanosis. She does not have focal worsening deficits. Arnold dial is doing well in terms of her stroke, which affects more coordination than strength. Laboratory Studies: White blood cell count 13.2, two days ago also was 13.2; neutrophils 72.8; hemog lobin 11.6. Sodium 133, potassium 4.3, chloride 97, carbon dioxide 32, creatinine 0.83. Her glucose ranged from 130s . Calcium 8.8 X-ray/imaging: No new x-rays or imaging. Medications: Her medications have been reviewed and she is taking extra-strength Tylenol 500 mg ever y 4 hours as needed to her medication regimen. Also she has insulin now 24 units with daphne akfast, 15 units at supper. She takes lidocaine patches applied to topically daily. Also, has throa t lozenges for cough and tramadol 50 mg every 4 hours as needed. All medications have been continued as noted. Progress Made With Physical And Occupational Therapy: Today with occupational therapy, required part ial assistance for toilet hygiene, minimum assist for supine to sit, wheelchair transfers, bathing mi nimum assistance, upper body dressing minimum assistance, lower body dressing maximum assistance. Wi th her physical therapy, she will be up in a wheelchair. She did report up to 8/10 pain in the neck and 6/10 pain in the right ankle. She did do bed mobility with minimum assistance, multiple sit-to-s tand transfers with minimum assistance. With speech therapy, she recalled 3 of 4 unrelated pictures after 5 minutes on first attempt and 4 of 4 after 5 minutes on second attempt. Ms. Reaves is making fair overall progress with physical, occupational, and speech therapy. Assessment: Ms. Reaves is a 78-year-old patient in the rehabilitation unit with multiple cerebral in farcts likely cardioembolic at MCA and TERRANCE territory. Her deficits are more incoordination, poor bal ance, gait and less so weakness. She has mild cognitive impairment, renal insufficiency, a C2 transv erse foraminal fracture, has a [place] J collar in place. She has restless legs syndrome, urinary trac t infection. She has reflux, hypertension, osteoporosis, diabetes mellitus type 2, decreased mobilit y, decreased physical functioning. Plan: 1.Continue with physical, occupational, speech therapy for 3.5 hours, 5 of 7 days. 2.Her gabapentin has been adjusted. Lidocaine patch also adjusted for pain management. Otherwise, she does have multiple comorbid conditions as noted and her medication regimen is continued and has b een reviewed. Comorbidities That Continue To Impact Rehabilitation: Currently she does have some significant pain in the neck and the ankle is noted. Gabapentin has been adjusted. Her [place] J collar is in place fo r neck stabilization and at times making it difficult for her to be able to move easily without pain in neck and shoulders. However, she is doing as instructed and working through the pain and it is mitigated by multiple medication modalities. LB/MODL Voice ID: [id number] Report ID: [id number]
[2023-04-11 05:43] LABS: Absolute Lymphocytes (CBC) 3.1 K/uL (0.7-4.9); Hematocrit 31.1 % (36.0-45.0); Lymphocytes % 27.8 % (15.3-44.8); MCV 82.7 fL (80-100); MPV 7.5 fL (7.6-11.3); Platelets 346 thou/uL (152-406); RBC Red Blood Cell Count 3.77 M/uL (3.86-4.86)
[2023-04-11 05:58] LABS: Albumin 2.6 g/dL (3.4-5.0); Magnesium 2.1 mg/dL (1.6-2.4); Potassium 4.3 mEq/L (3.5-5.1); Prealbumin 17.5 mg/dL (20-40)
[2023-04-11] MEDS: DULERA 100/5 (MOMETASONE/FORMOTEROL) INHALER IH SCH (09:17)
[2023-04-11] MEDS: OZEMPIC 0.5 MG SQ SCH (09:28)
--- NOTE | 2023-04-11 16:33 | RAD REPORT ---
EXAM DESCRIPTION: Maddie Single View04/11/2023 3:53 pm CLINICAL HISTORY: Cough COMPARISON: 2021 FINDINGS: The lungs appear clear of acute infiltrate. The heart is normal size IMPRESSION: No acute abnormalities displayed
[2023-04-11] MEDS: cloNIDine HCL 0.1 MG TAB PO PRN (19:24)
[2023-04-11] MEDS: CHLORASEPTIC LOZENGES PO PRN (19:45)
--- NOTE | 2023-04-12 13:20 | P.RH.PN ---
Estimated Length of Stay: 17 Expected Discharge Date: 04/23/23 Discharge Disposition Plan: Home Family Support: Yes Correction Goal: Mobility, Transfers, Self Care Vital Signs: Last Vital Signs Temp 97.0 F 04/12/23 08:00 Pulse 61 04/12/23 08:00 Resp 17 04/12/23 08:00 BP 159/78 H 04/12/23 08:00 Pulse Ox 96 04/12/23 08:00 Laboratory: Laboratory Last Values WBC 11.10 thou/uL (4.3-10.9) H 04/11/23 04:29 RBC 3.77 M/uL (3.86-4.86) L 04/11/23 04:29 Hgb 10.4 g/dL (12.0-15.0) L D 04/11/23 04:29 Hct 31.1 % (36.0-45.0) L 04/11/23 04:29 MCV 82.7 fL (80-100) 04/11/23 04:29 MCH 27.6 pg (27.0-35.0) 04/11/23 04:29 MCHC 33.4 g/dL (32.0-36.0) 04/11/23 04:29 RDW 14.6 % (12.1-15.2) 04/11/23 04:29 Plt Count 346 thou/uL (152-406) 04/11/23 04:29 MPV 7.5 fL (7.6-11.3) L 04/11/23 04:29 Neutrophils % 60.4 % (41.7-73.7) 04/11/23 04:29 Lymphocytes % 27.8 % (15.3-44.8) 04/11/23 04:29 Monocytes % 8.7 % (3.3-12.3) 04/11/23 04:29 Eosinophils % 2.6 % (0-4.4) 04/11/23 04:29 Basophils % 0.5 % (0-1.3) 04/11/23 04:29 Absolute Neutrophils 6.7 K/uL (1.8-8.0) 04/11/23 04:29 Absolute Lymphocytes 3.1 K/uL (0.7-4.9) 04/11/23 04:29 Absolute Monocytes 1.0 K/uL (0.1-1.3) 04/11/23 04:29 Absolute Eosinophils 0.3 K/uL (0-0.5) 04/11/23 04:29 Absolute Basophils 0.1 K/uL (0-0.5) 04/11/23 04:29 Sodium 134 mEq/L (136-145) L 04/11/23 04:29 Potassium 4.3 mEq/L (3.5-5.1) 04/11/23 04:29 Chloride 98 mEq/L (98-107) 04/11/23 04:29 Carbon Dioxide 33 mEq/L (21-32) H 04/11/23 04:29 Anion Gap 7.3 mEq/L (5.0-15.0) 04/11/23 04:29 BUN 19 mg/dL (7-18) H 04/11/23 04:29 Creatinine 0.80 mg/dL (0.55-1.02) 04/11/23 04:29 Est GFR (CKD-EPI) 76 ml/min (=/>90) L 04/11/23 04:29 Glucose 139 mg/dL (74-106) H 04/11/23 04:29 POC Glucose 146 mg/dL (65-120) H 04/12/23 11:15 Calcium 8.6 mg/dL (8.5-10.1) 04/11/23 04:29 Magnesium 2.1 mg/dL (1.6-2.4) 04/11/23 04:29 Albumin 2.6 g/dL (3.4-5.0) L 04/11/23 04:29 Prealbumin 17.5 mg/dL (20-40) L 04/11/23 04:29 Urine Color Light-yellow (Yellow) 04/07/23 12:50 Urine Clarity Clear (Clear) 04/07/23 12:50 Urine pH 6.0 (5.0-7.0) 04/07/23 12:50 Ur Specific [place] 1.011 (1.005-1.030) 04/07/23 12:50 Glucose (UA)(Auto) Negative (Negative) 04/07/23 12:50 Urine Ketones Negative (Negative) 04/07/23 12:50 Urine Blood Negative (Negative) 04/07/23 12:50 Urine Nitrite Negative (Negative) 04/07/23 12:50 Urine Bilirubin Negative (Negative) 04/07/23 12:50 Urine Urobilinogen 1+ (Normal) H 04/07/23 12:50 Ur Leukocyte Esterase Negative Shellie/uL (Negative) 04/07/23 12:50 Urine RBC <5 /HPF (None Seen) 04/07/23 12:50 Urine WBC <5 /HPF (<5) 04/07/23 12:50 Ur Squamous Epith Cells <5 /HPF (None Seen) 04/07/23 12:50 Urine Bacteria <20 /HPF (<20) 04/07/23 12:50 Urine Culture Reflexed Not needed 04/07/23 12:50 Urine Total Protein Negative (Negative) 04/07/23 12:50 Weight: 208 lb Wound Present: No Closed Surgical Incision Present: No Negative Pressure Wound Therapy Present: No Physician Update: Labs reviewed and prealbumin is mildly low. On glucerna. Pain is 4-5/10 in the neck and shoulders. Blood pressures are better. BIMS 14, SLUMS 21, poor short term memory. Difficulty organizing her thoughts. Met 3/4 speech goals. Mod assist for ambulation. CGA for wheelchair transfers. Up and down 3 steps with mod assist. WC 75' with mod assist. Met all short term occupational therapy goals. Need to work on core strength. Summary: Patient's care plan and long-term goals have been reviewed and revised as necessary. Please see the Rehabilitation Signature page for all necessary signatures.
[2023-04-12] MEDS: GLUCERNA SHAKE 237 ML CAN PO SCH (20:00)
[2023-04-12] MEDS: SENOSIDES 8.6 MG TAB ONE (20:07)
--- NOTE | 2023-04-14 10:29 | P.PN ---
Date of Service: 04/14/23 Subjective: Ms. Reaves is doing well, lying in her bed in between therapy sessions. She had a shower earlier and she is doing well. Her [place] J collar is in place. She does report some improvement in the pain in her shoulders and knees. She has lidocaine patches there and gabapentin as well on board. Review of Systems: No fevers, chills, mild myalgias and arthralgias. No rash. No headache. No psychiatric issues. No active gastrointestinal or genitourinary issues at this point. Physical Examination: Vital Signs: reviewed General: Ms. Reaves is again resting comfortably. HEENT: Her cervical collar is in place. She is normocephalic, atraumatic. Sclerae anicteric. Oropharynx pink, moist. Neck: Supple. Chest: Clear. Heart: Regular. Extremities: Show no significant edema or cyanosis. She does not have focal worsening deficits. She is doing well in terms of her stroke, which affects more coordination than strength. Progress Made With Physical And Occupational Therapy: Today with occupational therapy, required partial assistance for toilet hygiene, minimum assist for supine to sit, wheelchair transfers, bathing minimum assistance, upper body dressing minimum assistance, lower body dressing maximum assistance. With her physical therapy, she will be up in a wheelchair. She did report up to 8/10 pain in the neck and 6/10 pain in the right ankle. She did do bed mobility with minimum assistance, multiple sitto-stand transfers with minimum assistance. With speech therapy, she recalled 3 of 4 unrelated pictures after 5 minutes on first attempt and 4 of 4 after 5 minutes on second attempt. Ms. Reaves is making fair overall progress with physical, occupational, and speech therapy. Assessment: Ms. 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 Her deficits are more incoordination, poor balance, gait and less so weakness. She has mild cognitive impairment, renal insufficiency, a C2 transverse foraminal fracture, has a [place] J collar in place. She has restless legs syndrome, urinary tract infection. She has reflux, hypertension, osteoporosis, diabetes mellitus type 2, decreased mobility, decreased physical functioning. Plan: 1. Continue with physical, occupational, speech therapy for 3.5 hours, 5 of 7 days. 2. Her gabapentin has been adjusted. Lidocaine patch also adjusted for pain management. Otherwise, she does have multiple comorbid conditions as noted and her medication regimen is continued and has been reviewed. Comorbidities That Continue To Impact Rehabilitation: Currently she does have some significant pain in the neck and the ankle is noted. Gabapentin has been adjusted. Her [place] J collar is in place for neck stabilization and at times making it difficult for her to be able to move easily without pain in neck and shoulders. However, she is doing as instructed and working through the pain and it is mitigated by multiple medication modalities.
[2023-04-15] MEDS: CRANBERRY FRUIT EXTRACT 200 MG CAP PO SCH (13:34)
[2023-04-15] MEDS: ONDANSETRON 4 MG (ODT) TAB PO PRN (17:24)
[2023-04-16] MEDS: BISACODYL 10 MG RECTAL SUPP PR PRN (04:32)
[2023-04-16] MEDS: PROPRANOLOL HCL 60 MG SA CAP PO SCH (14:30)
[2023-04-16] MEDS: TOPIRAMATE 25 MG TAB PO SCH (20:00)
--- NOTE | 2023-04-16 23:21 | PN ---
Date of Progress Note: 04/16/2023 Time Of Service: 1 p.m. Subjective: Ms. Reaves is sitting in a chair beside the room. She has a soft cervical collar in fatmata ce. She says there is still some pain in the back of her neck, especially when she is lying at night . She does have some relief with lidocaine patches. Review of Systems: She denies any recent fevers or chills. Again, some myalgias, arthralgias in the neck especially. M ild headache, but no psychiatric complaints. No active genitourinary or gastrointestinal issues. Physical Examination: Vital Signs: Blood pressure , pulse 61, respiratory rate of 16, temperature 96.9, oxygen s aturation 94%. General: Ms. Reaves is resting comfortably in a chair beside the bed. Again, a soft collar in the c ervical region. HEENT: She appears normocephalic, atraumatic. Sclerae anicteric. Oropharynx pink, moist. Neck: Supple. Chest: Clear. Extremities: Mild edema in the lower extremities. Neuro: She has no focal neurological deficits at this point, despite she has incoordination. This i s a stroke affected more of her coordination than her strengths. Laboratory Studies: White blood cell count 11.1, hemoglobin 10.4, platelets 346. Sodium 134, potass ium 4.3, chloride 98, BUN 19, creatinine 0.8, glucose ranged from 122 to 139, prealbumin 17.5, albumi n 2.6. Medications: Her medications have been reviewed and remain unchanged. Progress With Physical And Occupational Therapy: Today with physical therapy, she was able to ambula te 65 feet twice with contact guard assistance using a rolling walker. She did require verbal cues t o remain upright. She mobilized in wheelchair 100 feet with standby assistance and verbal cues for s taring. She tended to drift. Her [id number] transfers with standby assistance, [id number] lucero sfers with contact guard assistance and verbal cues. With occupational therapy, she tolerated 5 [place] mayra of bilateral upper extremity aerobic exercise in a standing position with 3 rest breaks and multi ple verbal cues. With speech, she did quantitative calculations, completed with 80% accuracy. Organizational thinking skills used for divergent and convergent thinking with 90% accuracy. Working memory skills were exhibited for 4 words with 80% accuracy and moderate assistance. Ms. Reaves is making good progress with her therapy, improving her balance and mobilization, improvin g her cognition and responsiveness and recall in addition to her performing activities of daily livin g. However, she still requires significant help [place] J collar is in place for her fractu re and will likely require more help than is available at home and therefore senior care is being looked at. Assessment: Ms. Reaves is a 78-year-old patient in rehabilitation unit with multiple cerebral infarc ts, likely cardioembolic and MCA and TERRANCE territory. She has incoordination and poor gait and balance and much less than strength loss. She has cognitive impairment, renal insufficiency, C2 transverse foraminal fracture, and a soft collar in the cervical region. She has restless legs syndrome, urinar y tract infection, hypertension, GE reflux, osteoporosis, diabetes mellitus type 2, decreased mobilit y, decreased physical functioning. Plan: 1.Continue with physical, occupational, and speech therapy for 3.5 hours, 5 of 7 days. 2.She has multiple comorbid conditions which are addressed by continuing her medications including u sing the soft collar at this point in the cervical region, continuing with management of all medicati ons following blood work and following for any potential fever and any worsening urinary issues. Comorbidities That Are Continuing To Impact Rehabilitation: The neck pain which has increased slight ly is addressed by adjusting her medications to add topiramate 25 mg at night along with the lidocaine patches to the neck. JAIMIE/LITTLEL Voice ID: [id number] Report ID: [id number]
[2023-04-17 07:32] LABS: Potassium 4.3 mEq/L (3.5-5.1)
[2023-04-17 07:54] LABS: Absolute Lymphocytes (CBC) 2.3 K/uL (0.7-4.9); Hematocrit 36.1 % (36.0-45.0); Lymphocytes % 25.9 % (15.3-44.8); MCV 82.1 fL (80-100); MPV 7.2 fL (7.6-11.3); Platelets 409 thou/uL (152-406)
--- NOTE | 2023-04-18 19:00 | PN ---
Date of Progress Note: 04/18/2023 Time Of Service: 1 p.m. Subjective: Ms. Reaves is sitting in a chair in her room, waiting for this therapy sessions to begin . She does say that there is some pain behind the retro-orbital regions and wear the soft collar, it is now in place. The anterior area or the chin, not much pain there and she has lidocaine patches i n that area. Review of Systems: She denies any fevers, chills, nausea, vomiting, some neck pain as noted, pain in the shoulder and re tro-orbital region. She denies any other findings on a 10-point systems review. Physical Examination: Vital Signs: Blood pressure 149/76, pulse 64, respiratory rate 17, temperature 97.2, oxygen saturati on 96%. General: Ms. Reaves is sitting in a chair comfortably. HEENT: She is normocephalic. There is a soft collar in place. She often is moving it around to hel p relieve pain in the back of her head and ears, more on the right than the left otherwise. Chest: Clear. Abdomen: Soft. Extremities: Show no significant edema or cyanosis. In terms of her neurological examination, she h as no focal neurological deficits. She has improved significantly in terms of weakness of her extrem ities. Laboratory Studies: White blood cell count 8.8, hemoglobin 12.1, platelets 409. Blood glucose range d from 144 to 168. X-ray/imaging: No new x-rays or imaging. Medications: Medications have been reviewed. She continues to be on Tylenol. She has Ventolin inha ler, Eliquis 2.5 mg twice daily, Lipitor 20 mg at bedtime, nasal spray Astelin 137 mcg metered spray 2 sprays by nose twice daily, Dulcolax 10 mg per rectum as needed for constipation, Zyrtec 10 mg at b edtime, vitamin D 1000 units daily, Catapres 0.1 mg every 8 hours as needed, Colace 100 mg daily, Glu jolynn 237 mL twice daily, fish oil 1000 mg daily, Prozac 40 mg daily, Flonase 2 sprays per her nose d aily, folic acid 1 mg daily, gabapentin 300 mg twice daily, lidocaine patch 2 patches daily, Prinivil 20 mg twice daily, Imodium 2 mg every 4 hours as needed, magnesium oxide, Inderal. She is also on R equip, Senokot, Zofran, Mycostatin powder, Singulair along with Zanaflex, Topamax, Ultram, and B comp kilo. Progress Made With Physical And Occupational Therapy Along With Speech Therapy: Today with physical therapy, she was able to complete gait training with a rolling walker from home which is brought in. She was with contact guard to standby assistance covering 85 feet 3 times. She did complete stair m anagement up and down 5 steps and then 10 steps with bilateral handrails with contact guard assistanc e. She mobilized wheelchair 160 feet and 80 feet with modified independence. With dog bather apy, independent with toilet hygiene including management. She did require extra time, independent w ith grooming of hair and oral care at wheelchair level. She did perform repetitive [id number] 5 se ts 4 times, increasing lower body and upper body strength and safety awareness. With speech, she wor ked towards improving cognitive skills including short-term memory, working memory, sequencing, organ izational thinking. She did require minimum assistance for organizational thinking and working memor y, but moderate assistance for recall of 4/4 unrelated pictures after 2 minutes. Ms. Reaves is making good progress overall with physical, occupational, and speech therapy. She does have some pain behind the ear and in the posterior neck region. Assessment: Ms. Reaves is a 78-year-old patient with stroke that is not affecting strength nor coord ination, very mild strength involvement. She also has a C2 transverse foraminal fracture with a soft collar in place. She has restless legs syndrome, urinary tract infection treated, hypertension, GE reflux, osteoporosis, diabetes mellitus type 2, decreased mobility, decreased physical functioning. Plan: 1.Continue with physical, occupational, and speech therapy for 3.5 hours, 5 of 7 days. 2.Her comorbid conditions that are listed are addressed by continuing her medications and was also l isted. Comorbidities That Are Continuing To Impact Rehabilitation: The pain in the posterior neck region plunkett s been the biggest factor. She will have topicals applied on there and that is the Voltaren and its equivalent and analgesic including the 4% lidocaine cream. She does have the topiramate 25 mg at [facility], which has been added along with the lidocaine patch. Comorbidities are negatively impacting rehabilitation, her pain in the neck, which is a biggest issue there is improving and medications have been adjusted for mitigation. JAIMIE/MARY Voice ID: [id number] Report ID: [id number]
[2023-04-19 10:19] VITALS: BMI 38.2
--- NOTE | 2023-04-19 13:12 | P.RH.PN ---
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3) L 04/17/23 07:05 Neutrophils % 63.0 % (41.7-73.7) 04/17/23 07:05 Lymphocytes % 25.9 % (15.3-44.8) 04/17/23 07:05 Monocytes % 7.1 % (3.3-12.3) 04/17/23 07:05 Eosinophils % 3.2 % (0-4.4) 04/17/23 07:05 Basophils % 0.8 % (0-1.3) 04/17/23 07:05 Absolute Neutrophils 5.5 K/uL (1.8-8.0) 04/17/23 07:05 Absolute Lymphocytes 2.3 K/uL (0.7-4.9) 04/17/23 07:05 Absolute Monocytes 0.6 K/uL (0.1-1.3) 04/17/23 07:05 Absolute Eosinophils 0.3 K/uL (0-0.5) 04/17/23 07:05 Absolute Basophils 0.1 K/uL (0-0.5) 04/17/23 07:05 Sodium 133 mEq/L (136-145) L 04/17/23 07:05 Potassium 4.3 mEq/L (3.5-5.1) 04/17/23 07:05 Chloride 95 mEq/L (98-107) L 04/17/23 07:05 Carbon Dioxide 35 mEq/L (21-32) H 04/17/23 07:05 Anion Gap 7.3 mEq/L (5.0-15.0) 04/17/23 07:05 BUN 19 mg/dL (7-18) H 04/17/23 07:05 Creatinine 0.97 mg/dL (0.55-1.02) 04/17/23 07:05 Est GFR (CKD-EPI) 60 ml/min (=/>90) L 04/17/23 07:05 Glucose 155 mg/dL (74-106) H 04/17/23 07:05 POC Glucose 195 mg/dL (65-120) H 04/19/23 11:06 Calcium 9.5 mg/dL (8.5-10.1) 04/17/23 07:05 Magnesium 2.1 mg/dL (1.6-2.4) 04/11/23 04:29 Albumin 2.6 g/dL (3.4-5.0) L 04/11/23 04:29 Prealbumin 17.5 mg/dL (20-40) L 04/11/23 04:29 Urine Color Light-yellow (Yellow) 04/07/23 12:50 Urine Clarity Clear (Clear) 04/07/23 12:50 Urine pH 6.0 (5.0-7.0) 04/07/23 12:50 Ur Specific [place] 1.011 (1.005-1.030) 04/07/23 12:50 Glucose (UA)(Auto) Negative (Negative) 04/07/23 12:50 Urine Ketones Negative (Negative) 04/07/23 12:50 Urine Blood Negative (Negative) 04/07/23 12:50 Urine Nitrite Negative (Negative) 04/07/23 12:50 Urine Bilirubin Negative (Negative) 04/07/23 12:50 Urine Urobilinogen 1+ (Normal) H 04/07/23 12:50 Ur Leukocyte Esterase Negative Shellie/uL (Negative) 04/07/23 12:50 Urine RBC <5 /HPF (None Seen) 04/07/23 12:50 Urine WBC <5 /HPF (<5) 04/07/23 12:50 Ur Squamous Epith Cells <5 /HPF (None Seen) 04/07/23 12:50 Urine Bacteria <20 /HPF (<20) 04/07/23 12:50 Urine Culture Reflexed Not needed 04/07/23 12:50 Urine Total Protein Negative (Negative) 04/07/23 12:50 Weight: 222 lb 12.8 oz Wound Present: No Closed Surgical Incision Present: No Negative Pressure Wound Therapy Present: No Physician Update: Labs reviewed and are stable. Met all ADL goals but fatigues easily. Improved short term memory. Ambulating better. 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 Please see the Rehabilitation Signature page for all necessary signatures.
[2023-04-20] MEDS: TIZANIDINE 4 MG TABLET PO SCH (10:06)
--- NOTE | 2023-04-20 10:08 | RAD REPORT ---
EXAM DESCRIPTION: RAD - C Spine Ap/Lat - 04/20/2023 9:45 am CLINICAL HISTORY: pain COMPARISON: No comparisons TECHNIQUE: Cervical spine, 3 views. FINDINGS: Cervical vertebral body seen to the level of C5. Evaluation of C6, C7, and T1 is limited g iven over shadowing soft tissues an humerus. Cervical vertebral bodies are normal in height. Asymmetric widening of the right atlanto odontoid int erval on the open mouth review, measuring approximately 6 mm. Suspected widening of the anterior atla nto- odontoid interval, and possibly some caudal subluxation of the tip of the C2 dens. No fracture o r acute bony process seen. Degenerative changes with variable degrees of disc height loss and straigh tening of the normal cervical lordosis. There is no prevertebral soft tissue thickening or other suspicious soft tissue finding. IMPRESSION: Findings suggestive of atlanto odontoid instability as above. Findings would be better e valuated by dedicated cervical spine CT, if clinically indicated. Degenerative changes as above.
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
[2023-04-25 07:43] VITALS: BP 132/67; TEMP 96.6
== END 2023-04-25 10:45 | disposition home health service (06) | DRG 57 ==
LOC: 5TH 04-07 12:30
PROVIDERS: ADMIT Psychiatry & Neurology Neurology with Special Qualifications in Child Neurology; ATTEND Psychiatry & Neurology Neurology with Special Qualifications in Child Neurology
DX: I69.393 Ataxia following cerebral infarction (principal); I69.398 Other sequelae of cerebral infarction; R32 Unspecified urinary incontinence; I10 Essential (primary) hypertension; E11.9 Type 2 diabetes mellitus without complications; K21.9 Gastro-esophageal reflux disease without esophagitis; M81.0 Age-related osteoporosis without current pathological fracture; G25.81 Restless legs syndrome; D64.9 Anemia, unspecified; S12.100D Unspecified displaced fracture of second cervical vertebra, subsequent encounter for fracture with routine healing
CPT/HCPCS: 36415; 71045; 72040; 80048; 81001; 82040; 82947; 83735; 84134; 85025; 87086; 87088; 92523; 97110; 97112; 97116; 97129; 97163; 97165; 97530; 97542; J1815; J2001; J3535; J8610; Q0162